=== PATIENT | female | born 1960 | race Caucasian/White ===

== ENCOUNTER → 2020-07-31 | Outpatient (CLI) | payer OTHER ==
[~2020-07-31] MED LIST: REGADENOSON 0.4 MG/5 ML SYRINGE IV ONE
--- NOTE | 2020-07-31 16:12 | NM ---
EXAMINATION TYPE: NM stress lexiscan cardiolite DATE OF EXAM: 07/31/2020 COMPARISON: NONE HISTORY: Arrhythmia TECHNIQUE: After the intravenous administration of 9.5 mCi Tc 99m Sestamibi - Cardiolite resting SPE CT images acquired 50 minutes post injection. The patient received 0.4mg Lexiscan, 25.2 mCi Tc 99m Sestamibi - Stress images obtained [address] injection FINDINGS: Review of stress and rest SPECT images demonstrates decreased activity on stress and rest of the ante rior wall, with normal wall motion, likely attenuation artifact. No distinct reversible perfusion abn ormality. Gated analysis shows normal wall motion with an estimated left ventricular ejection fracti on of 45 %. TID 1.15 IMPRESSION: 1. Attenuation artifact of the anterior wall. 2. No scintigraphic evidence for reversible ischemia. 3. Ejection fraction 45%.
--- NOTE | 2020-07-31 16:53 | ECHOF ---
Referral Reason:I49.9 arrythmia MEASUREMENTS -------- HEIGHT: 179.1 cm WEIGHT: 93.0 kg BP: 146/66 RVIDd: 3.0 cm (< 3.3) IVSd: 1.3 cm (0.6 - 1.1) LVIDd: 4.8 cm (3.9 - 5.3) LVPWd: 1.1 cm (0.6 - 1.1) IVSs: 1.6 cm LVIDs: 3.7 cm LVPWs: 1.8 cm LA Diam: 3.6 cm (2.7 - 3.8) LAESV Index (A-L): 23.25 ml/m Ao Diam: 2.8 cm (2.0 - 3.7) AV Cusp: 1.4 cm (1.5 - 2.6) MV EXCURSION: 9.414 mm (> 18.000) MV EF SLOPE: 73 mm/s (70 - 150) EPSS: 1.1 cm MV E Lico: 0.76 m/s MV DecT: 257 ms MV A Lico: 1.04 m/s MV E/A Ratio: 0.73 AV maxP.15 mmHg AV meanP.05 mmHg AR PHT: 701 ms RAP: 5.00 mmHg RVSP: 28.22 mmHg FINDINGS -------- Sinus rhythm. This was a technically adequate study. The left ventricular size is normal. There is mild concentric left ventricular hypertrophy. Overa ll left ventricular systolic function is mild-moderately impaired with, an EF between 40 - 45 %. The right ventricle is normal in size. Normal LA size by volume 22+/-6 ml/m2. The right atrium is normal in size. Interatrial and interventricular septum intact. There is moderate aortic valve sclerosis. There is [id number]-lvdued aortic regurgitation. There is mild aortic stenosis present. Peak/mean gradient across the Aortic Valve is 31.15mmHg / 18.05mm Hg. The mitral valve leaflets are mildly thickened. There is trace to mild mitral regurgitation. Mild tricuspid regurgitation present. Right ventricular systolic pressure is normal at < 35 mmHg. Trace/mild (physiologic) pulmonic regurgitation. The aortic root size is normal. IVC Not well visulized. There is no pericardial effusion. CONCLUSIONS -------- 1. The left ventricular size is normal. 2. There is mild concentric left ventricular hypertrophy. 3. Overall left ventricular systolic function is mild-moderately impaired with, an EF between 40 - 45 %. 4. There is moderate aortic valve sclerosis. 5. There is mild aortic stenosis present. 6. Peak/mean gradient across the Aortic Valve is 31.15mmHg / 18.05mmHg. 7. The mitral valve leaflets are mildly thickened. 8. There is trace to mild mitral regurgitation. 9. Mild tricuspid regurgitation present. 10. Trace/mild (physiologic) pulmonic regurgitation. 11. There is no pericardial effusion. MANAGER CREATIVE: Theodora Barcenas RDCS
--- NOTE | 2020-07-31 18:06 | P.STRESS ---
- Stress Test Note Stress Test Results/Findings: Exam Performed: NM stress lexiscan cardiolite Exam Date: 07/31/20 Reason for Exam: ARRHYTHMIA Height: 5 ft 11 in Weight: 205 kg Protocol: LEXISCAN Stage: NA Duration of Exercise: NA Resting Heart Rate: 71 Resting Blood Pressure: 133/82 Maximum Achieved Heart Rate: 96 Maximum Achieved Blood Pressure: 152/64 85% PMHR: NA 100% PMHR: NA METS: NA Technologist Comment: Stress Test Results/Findings: At baseline EKG shows normal sinus rhythm with left bundle branch block and nonspecific ST, T-wave abnormalities. At peak infusion there is no significant change of nonspecific ST and T wave abnormalities with continued left bundle- branch block. Conclusions: 1. Normal EKG response to Lexiscan infusion. 2. Left bundle branch block 3. Nuclear imaging reported separately.
== END | disposition home or self-care (01) ==
LOC: RADNMMAIN 08:37
PROVIDERS: ATTEND Internal Medicine Geriatric Medicine
DX: I08.1 Rheumatic disorders of both mitral and tricuspid valves (principal); I44.7 Left bundle-branch block, unspecified; I49.9 Cardiac arrhythmia, unspecified
CPT/HCPCS: 93017; 93306; 78452; A9500; J2785

== ENCOUNTER → 2020-08-24 | Outpatient (CLI) | payer OTHER ==
[2020-08-24 09:47] LABS: HCT 42.2 % (34.0-46.0); HGB 13.4 gm/dL (11.4-16.0); MCH 30.1 pg (25.0-35.0); MCHC 31.7 g/dL (31.0-37.0); MCV 94.8 fL (80.0-100.0); Mean Platelet Volume 7.5; Platelet Count 231 k/uL (150-450); RBC 4.45 m/uL (3.80-5.40); RDW 12.1 % (11.5-15.5); WBC 6.6 k/uL (3.8-10.6)
[2020-08-24 10:02] LABS: Potassium 5.4 mmol/L (3.5-5.1)
== END | disposition home or self-care (01) ==
LOC: LABPAT 08:54
PROVIDERS: ATTEND Internal Medicine Interventional Cardiology
DX: Z01.818 Encounter for other preprocedural examination (principal); R06.02 Shortness of breath
CPT/HCPCS: 36415; 80051; 82565; 84520; 85027

== ENCOUNTER → 2020-08-27 | Day surgery (SDC) | payer OTHER ==
[2020-08-23 15:28] VITALS: BMI 29.2
[~2020-08-27] MED LIST changes: +ALPRAZolam 0.25 MG TAB PO PRN; +ALPRAZolam 0.5 MG TAB PO PRN; +ASPIRIN 325 MG TAB PO STA; +ATORVASTATIN 80 MG TAB PO STA; +IOPAMIDOL-370 125ML BTL INJ ONE; +IOPAMIDOL-370 50ML BTL INJ ONE; +LIDOCAINE 1% INJ 10MG/ML (20 ML MDV) SQ ONE; +MIDAZOLAM 2 MG/2 ML VIAL IV ONE; +NITROGLYCERIN SL TABS 0.4 MG TAB SUBLINGUAL PRN; -REGADENOSON 0.4 MG/5 ML SYRINGE IV ONE; +RX INFO: IV CONTRAST WAS GIVEN 1 EACH MISC MISCELLANE PRN; +SODIUM CHLORIDE 0.9% 1,000 ML IV SCH; +SODIUM CHLORIDE 0.9% 1,000 ML in EMPTY BAG 1 BAG IV ONE
[2020-08-27 07:10] VITALS: RESP 16; TEMP 98
[2020-08-27] MEDS: BENZOCAINE SPRAY 1 CAN MUCOUS MEM ONE ×2 (07:38→07:50)
[2020-08-27] MEDS: MIDAZOLAM 2 MG/2 ML VIAL IV ONE ×2 (07:48→07:54)
[2020-08-27] MEDS: VERAPAMIL SYRINGE (5 MG/10 ML) INTRAARTER ONE ×2 (08:25→08:42)
[2020-08-27] MEDS: fentaNYL (PF) 50 MCG/ML 2 ML AMP IV ONE ×2 (08:30→08:41)
--- NOTE | 2020-08-27 09:20 | ECHOT ---
TRANSESOPHAGEAL ECHOCARDIOGRAM TRANSESOPHAGEAL ECHOCARDIOGRAM: DATE OF SERVICE: 08/27/2020 PERFORMING PHYSICIAN: Joshua Perez MD. PROCEDURE PERFORMED: Transesophageal echocardiogram. INDICATION: This is a 60-year-old female patient who was seen recently at Dr. Ortiz's office and was found to have a heart murmur. An echocardiogram was performed and showed evidence of aortic valve disease. Subsequently, the patient was referred for further cardiac evaluation. The echo showed also what seems to be cardiomyopathy with EF around 40% with left bundle branch block as well. She is scheduled today to undergo a MIKI and heart catheterization. COMPLICATION: None. LEVEL OF SEDATION: Moderate with sedation length of 15 minutes. PROCEDURE DESCRIPTION: After obtaining an informed consent, the patient was brought to the cardiac laboratory chemical assistant. The transesophageal echocardiogram was advanced through the bite guard to the mid esophageal where 2D echocardiogram images as well as color Doppler images of of various cardiac structures were obtained. Particular attention was made to the aortic valve. We did the MIKI using color Doppler, as well as continuous-wave Dopplers as well as 2D echocardiogram images. The procedure was completed without any complication. FINDINGS: The left ventricular dimension appeared to be within normal limits. The left ventricular systolic function is mildly impaired with EF around 45%. Right ventricle appeared to be of normal size and function. The left atrium appeared to be mildly dilated. The left atrial appendage appeared to be free from any thrombus. The interatrial septum appeared to be intact. The aortic valve is trileaflet valve without stenosis with evidence of severe aortic insufficiency and evidence of reversal flow in the descending aorta. The mitral valve appeared to be mildly thickened with evidence of moderate MR. There was mild tricuspid regurgitation seen and mild pulmonic insufficiency. CONCLUSION: 1. Mildly impaired left ventricular systolic function with ejection fraction around 45%. 2. Intact interatrial septum without any evidence of shunt. 3. Normal left atrial appendage without any thrombus. 4. Trileaflet aortic valve without stenosis with severe insufficiency and evidence of reversal flow in the descending aorta. 5. Thickened mitral valve leaflets with evidence of moderate MR. 6. Mild tricuspid regurgitation and mild pulmonic insufficiency. 7. Mildly dilated aortic root. 8. No evidence of pericardial effusion. MMODL / IJN: [id number] /
[2020-08-27 10:24] VITALS: PULSE 48
[2020-08-27 10:26] VITALS: BP 136/61
--- NOTE | 2020-08-27 14:22 | CC ---
CARDIAC CATHETERIZATION REPORT DATE OF SERVICE: 08/27/2020. PERFORMING PHYSICIAN: Joshua Perez MD. PROCEDURE PERFORMED: 1. Selective right and left coronary angiogram. 2. An aortic root angiogram. INDICATION: This is a 60-year-old female patient who was diagnosed recently with severe aortic insufficiency. COMPLICATION: None. LEVEL OF SEDATION: Moderate with sedation length of 24 minutes. PROCEDURE DESCRIPTION: After obtaining an informed consent, the patient was brought to the cardiac poultry farm laborer. The right radial artery was cannulated using micropuncture technique, the micropuncture wire passed easily, then I placed a 6-St Lucian sheath at the right radial artery; 10,000 units of heparin given and 2 mg of verapamil given as well. Selective right and left coronary angiogram performed using JR4 3.5 short tip and JL3.5 catheters. I did aortic root angiogram using 6-St Lucian pigtail catheter. The procedure was completed without any complication. SELECTIVE CORONARY ANGIOGRAM: 1. Left main is angiographically normal, it bifurcates into LCX and LAD. 2. The LCX is a large caliber vessel and it is a nondominant vessel. The left circumflex is angiographically normal. It gives rise in the midportion into a large OM which appeared to be angiographically normal. 3. The LAD, the LAD is angiographically normal as well. In the midportion, it gives rise into a large diagonal branch which has mild disease only. 4. The right coronary artery is a large caliber vessel, it is a dominant vessel. The RCA is calcified with only mild to moderate disease in the midportion appeared to be in the range of 40% to 50%. AORTIC ROOT ANGIOGRAM: The aortic root angiogram was performed in the MOHAWK projection and using a power injection. The aortic root appeared to be mildly dilated with evidence of 3 to 4+ aortic insufficiency. CONCLUSION: 1. Calcified right and left coronary systems. 2. Intermediate disease involving the mid right coronary artery. 3. A 3+ to 4+ aortic insufficiency with dilated aortic root. MMODL / IJN: [id number] /
--- NOTE | 2020-08-27 14:22 | LTR ---
DATE OF SERVICE: 08/27/2020 RE: Katelynn Huber Dear Dr. Ortiz; Ms. Katelynn Huber underwent today a MIKI and heart catheterization. The MIKI revealed severe aortic insufficiency. The heart catheterization revealed intermediate nonobstructive coronary artery disease with evidence of severe aortic insufficiency as well. I advised at this point maximize medical treatment and follow up with the patient in the office as an outpatient and arrange the patient to be seen by cardiothoracic surgeon for aortic valve replacement. Thank you again for allowing us to participate in her care and please do not hesitate to call for any questions or concerns. Sincerely, MD HARIKA Aguilar / MICHELLEN: [id number] /
== END ==
LOC: CATHCVL 06:20
PROVIDERS: ATTEND Internal Medicine Interventional Cardiology
DX: I08.8 Other rheumatic multiple valve diseases (principal); I77.810 Thoracic aortic ectasia; I25.10 Atherosclerotic heart disease of native coronary artery without angina pectoris; I42.9 Cardiomyopathy, unspecified; F17.210 Nicotine dependence, cigarettes, uncomplicated; R09.89 Other specified symptoms and signs involving the circulatory and respiratory systems; M17.11 Unilateral primary osteoarthritis, right knee; I44.7 Left bundle-branch block, unspecified; Z79.899 Other long term (current) drug therapy; Z88.5 Allergy status to narcotic agent; Z88.0 Allergy status to penicillin; Z82.49 Family history of ischemic heart disease and other diseases of the circulatory system
CPT/HCPCS: 93312; 93320; 93325; 93454; 93567; C1887; C1769; C1894; J2250; J2001; J3010; J1644; Q9967 ×2

== ENCOUNTER → 2020-09-28 | Outpatient (CLI) | payer OTHER ==
[2020-09-28 09:56] LABS: HCT 42.5 % (34.0-46.0); HGB 13.6 gm/dL (11.4-16.0); MCH 30.9 pg (25.0-35.0); MCV 96.8 fL (80.0-100.0); Mean Platelet Volume 7.7; Platelet Count 202 k/uL (150-450); RBC 4.39 m/uL (3.80-5.40); RDW 11.9 % (11.5-15.5); WBC 7.2 k/uL (3.8-10.6)
[2020-09-28 10:09] LABS: Calcium 9.3 mg/dL (8.4-10.2); INR 0.9 (<1.2); Magnesium 2.1 mg/dL (1.6-2.3); Partial Thromboplastin Time 22.8 sec (22.0-30.0); Potassium 4.8 mmol/L (3.5-5.1); Prothrombin Time 9.6 sec (9.0-12.0); Total Bilirubin 0.5 mg/dL (0.2-1.3); Total Protein 6.4 g/dL (6.3-8.2)
[2020-09-28 10:39] LABS: Appearance,Urine Cloudy (Clear); Bilirubin,Urine Negative (Negative); Blood,Urine Small (Negative); Color,Urine Yellow; Glucose,Urine (UA) Negative (Negative); Hyaline Casts,Urine 1 /lpf (0-2); Ketones,Urine Negative (Negative); Leukocyte Esterase,Urine Moderate (Negative); Mucus,Urine Few /hpf; Nitrite,Urine Negative (Negative); PH, Urine 5.5 (5.0-8.0); Protein,Urine Negative (Negative); RBC,Urine 4 /hpf (0-5); Specific Gravity,Urine 1.029 (1.001-1.035); Squamous Epithelial Cell,Urine 12 /hpf (0-4); Urobilinogen,Urine <2.0 mg/dL (<2.0); WBC,Urine 9 /hpf (0-5)
--- NOTE | 2020-09-28 13:18 | XR ---
EXAMINATION TYPE: XR chest 2V DATE OF EXAM: 09/28/2020 COMPARISON: NONE HISTORY: Preop open heart surgery TECHNIQUE: Frontal and lateral views of the chest are obtained. FINDINGS: There is no focal air space opacity, pleural effusion, or pneumothorax seen. The cardiac silhouette size is within normal limits. The osseous structures are intact. IMPRESSION: No acute cardiopulmonary process.
--- NOTE | 2020-09-28 15:27 | P.PN ---
Progress Note - Text Progress Note Date: 09/28/20 5 meter walk test completed: #1 2.89 sec #2 2.98 sec #3 2.80 sec Patient tolerated without difficulty. STS risk score calculated and discussed with patient
[2020-09-28 16:18] LABS: Hemoglobin A1C 5.6 % (4.0-6.0)
[2020-09-28 16:46] LABS: Hepatitis A Antibody IgM Non-Reactive (Non-Reactive); Hepatitis B Core IgM Non-Reactive (Non-Reactive); Hepatitis B Surface Antigen Non-Reactive (Non-Reactive); Hepatitis C IgG Antibody Non-Reactive (Non-Reactive)
--- NOTE | 2020-10-03 13:15 | P.ARTDOP ---
Arterial Doppler LOWER EXTREMITY ARTERIAL DOPPLER: DATE OF SERVICE: 09/28/2020 Reason for study: Preop CABG. Doppler waveforms: Multiphasic bilaterally throughout. Pulse volume recording: []. Pressure gradients: None. Ankle-brachial indices: Greater than 1 bilaterally. Toe brachial indices: 1.01 on the right, 0.87 on the left Impression: Normal study.
--- NOTE | 2020-10-03 13:17 | P.VSCSTY ---
Greater Saphenous Vein Mapping This is bilateral lower extremity greater saphenous vein mapping. Date of service: 09/28/2020 Vein quality and ultrasound appearance: We see no intraluminal thrombus or wall changes. Vein size groin right : 7.4 x 4.9 groin left: 4.1 x 3.7 High thigh right: 5.9 x 5.2 high thigh left: 3.2 x 3.0 Mid thigh right: 4.5 x 2.6 mid thigh left: 3.6 x 2.8 Above-knee right: 5.8 x 3.3 above- knee left: 4.5 x 3.2 Below knee right: 3.8 x 3.9 below-knee left: 3.1 x 3.0 Mid calf right: 2.8 x 2.7 mid calf left: 2.6 x 1.3 Ankle right: 2.4 x 2.6 ankle left: 2.3 x 2.1 Impression: Usable bilateral greater saphenous vein. Vein in the left lower leg may be a bit small. Clinical correlation recommended..
== END | disposition home or self-care (01) ==
LOC: LABPAT 07:49
PROVIDERS: ATTEND Thoracic Surgery (Cardiothoracic Vascular Surgery)
DX: Z01.818 Encounter for other preprocedural examination (principal); Z01.810 Encounter for preprocedural cardiovascular examination; Z20.828 Contact with and (suspected) exposure to other viral communicable diseases; I35.1 Nonrheumatic aortic (valve) insufficiency; I34.0 Nonrheumatic mitral (valve) insufficiency
CPT/HCPCS: 86900; 86901; 80061; 80053; 80074; 84443; 83735; 85027; 85610; 85730; 86850; 86920; 81001; 87070; 87086; 83036; 71046; 93970; 93922; 93005; 36415; U0003; C9803

== ENCOUNTER 2020-10-05 05:33 | Inpatient (IN) | payer OTHER ==
[~2020-10-05 05:33] MED LIST changes: +ALBUMIN HUMAN 25% 50 ML IV ONE; +ALBUMIN HUMAN 5% 500 ML IVPB ONE; -ALPRAZolam 0.25 MG TAB PO PRN; -ALPRAZolam 0.5 MG TAB PO PRN; +ASPIRIN 325 MG TAB PO ONE; -ASPIRIN 325 MG TAB PO STA; +ATORVASTATIN 10 MG TAB PO ONE; -ATORVASTATIN 80 MG TAB PO STA; +CALCIUM CHLORIDE 100 MG/ML 10 ML SYRINGE IV ONE; +CHLORHEXIDINE GLUCONATE 15 ML CUP MUCOUS MEM ONE; +CLEVIDIPINE BUTYRATE 25 MG in EMPTY BAG 1 BAG IV ONE; +DEXTROSE 5% IN WATER 1,000 ML with POTASSIUM CHLORIDE 110 MEQ, MAGNESIUM SULFATE 16 MEQ... IV ONE; +DEXTROSE 5% IN WATER 1,000 ML with POTASSIUM CHLORIDE 25 MEQ, SODIUM CHLORIDE 2.5MEQ/ML... IRRIGATION ONE; +HEPARIN SODIUM 1,000 UN/ML (10ML VL) IV ONE; +HEPARIN SODIUM,PORCINE 5,000 UNIT in SODIUM CHLORIDE 0.9% 500 ML 500 ML IV ONE; +INSULIN REGULAR 100 UNIT in SODIUM CHLORIDE 0.9% 100 ML IV ONE; -IOPAMIDOL-370 125ML BTL INJ ONE; -IOPAMIDOL-370 50ML BTL INJ ONE; +LACTATED RINGERS 1,000 ML IV ONE; -LIDOCAINE 1% INJ 10MG/ML (20 ML MDV) SQ ONE; +MAGNESIUM SULFATE MG 500 MG/ML IV ONE; +MANNITOL 25% 12.5 GM/50 ML VIAL IV ONE; +METOPROLOL TARTRATE 12.5 MG TAB PO ONE; -MIDAZOLAM 2 MG/2 ML VIAL IV ONE; -NITROGLYCERIN SL TABS 0.4 MG TAB SUBLINGUAL PRN; +NITROGLYCERIN-D5W PMX 25 MG/250 ML BTL IV ONE; +NITROGLYCERIN-D5W PMX 50 MG in DEXTROSE/WATER 1 250ML.BAG IV ONE; +NOREPINEPHRINE 4 MG in SODIUM CHLORIDE 0.9% 250 ML IV ONE; +PAPAVERINE 360 MG in SODIUM CHLORIDE 0.9% 90 ML IV ONE; +PHENYLEPHRINE 10 MG/ML VIAL IV ONE; +PHENYLEPHRINE 40 MG in SODIUM CHLORIDE 0.9% 250 ML IV ONE; +PROTAMINE SULFATE 10 MG/ML 25 ML VIAL IV ONE; +PROTAMINE SULFATE 250 MG in EMPTY BAG 1 BAG IV ONE; -RX INFO: IV CONTRAST WAS GIVEN 1 EACH MISC MISCELLANE PRN; +SODIUM BICARB 8.4% 50 ML SYR (1 MEQ/ML) IV ONE; +SODIUM CHLORIDE 0.9% 1,000 ML IV ONE; -SODIUM CHLORIDE 0.9% 1,000 ML IV SCH; -SODIUM CHLORIDE 0.9% 1,000 ML in EMPTY BAG 1 BAG IV ONE; +TRANEXAMIC ACID 2,000 MG in SODIUM CHLORIDE 0.9% 80 ML IV ONE; +VANCOMYCIN 1,500 MG in SODIUM CHLORIDE 0.9% 250 ML IVPB ONE; +propofoL 1,000 MG/100 ML VIAL IV ONE
[2020-10-05] MEDS ORDERED: LIDOCAINE 1% (10MG/ML) FOR IV START INTRADERMA ONE (06:09)
[2020-10-05] MEDS ORDERED: PROTAMINE SULFATE 10 MG/ML 25 ML VIAL IV ONE (07:38)
[2020-10-05] MEDS ORDERED: MAGNESIUM SULFATE 4 MEQ/ML 10ML VIAL ONE (07:38)
[2020-10-05] MEDS ORDERED: VECURONIUM 10 MG VIAL IV ONE (07:38)
[2020-10-05] MEDS ORDERED: SODIUM CHLORIDE 0.9% IRRIG 1,000 ML BTL IRRIGATION ONE (07:38)
[2020-10-05] MEDS ORDERED: TRANEXAMIC ACID 1,000 MG/10 ML VIAL ONE (07:38)
[2020-10-05] MEDS ORDERED: MIDAZOLAM 2 MG/2 ML VIAL ONE (07:38)
[2020-10-05] MEDS ORDERED: fentaNYL (PF) 50 MCG/ML 50 ML VIAL ONE (07:38)
[2020-10-05] MEDS ORDERED: LIDOCAINE 2% SYG (PF) 100 MG/5 ML ONE (07:38)
[2020-10-05] MEDS ORDERED: ELECTROLYTE-R (PH 7.4) 1,000 ML IV.SOLN IV ONE (07:38)
[2020-10-05] MEDS ORDERED: HEPARIN SODIUM,PORCINE 10,000 UNIT/ML 1 ML VIAL ONE (07:38)
[2020-10-05] MEDS ORDERED: SODIUM CHLORIDE 0.9% 250 ML BAG ONE (07:38)
[2020-10-05 08:44] LABS: ABG Base Excess 0.1 mmol/L; ABG Glucose Whole Blood 95 mg/dL (75-99); ABG HCO3 24 mmol/L (21-25); ABG Hematocrit 36 % (34.0-46.0); ABG Ionized Calcium 4.8 mg/dL (4.5-5.3); ABG Lactic Acid Whole Blood 1.2 mmol/L (0.5-1.6); ABG Oxygen Saturation 99.9 % (94-97); ABG PCO2 37 mmHg (35-45); ABG PH 7.42 (7.35-7.45); ABG PO2 408 mmHg (83-108); ABG Sodium Whole Blood 140 mmol/L (135-146); ABG TCO2 26 mmol/L (19-24)
[2020-10-05 09:53] LABS: ABG Base Excess 1.1 mmol/L; ABG Glucose Whole Blood 100 mg/dL (75-99); ABG HCO3 27 mmol/L (21-25); ABG Hematocrit 34 % (34.0-46.0); ABG Ionized Calcium 4.7 mg/dL (4.5-5.3); ABG Lactic Acid Whole Blood 1.3 mmol/L (0.5-1.6); ABG Oxygen Saturation 99.6 % (94-97); ABG PCO2 44 mmHg (35-45); ABG PH 7.38 (7.35-7.45); ABG PO2 239 mmHg (83-108); ABG Potassium Whole Blood 4.1 mmol/L (3.4-4.5); ABG Sodium Whole Blood 140 mmol/L (135-146); ABG TCO2 28 mmol/L (19-24)
[2020-10-05 10:14] LABS: ABG Glucose Whole Blood 200 mg/dL (75-99); ABG HCO3 24 mmol/L (21-25); ABG Hematocrit 25 % (34.0-46.0); ABG Ionized Calcium 4.1 mg/dL (4.5-5.3); ABG Lactic Acid Whole Blood 0.9 mmol/L (0.5-1.6); ABG PCO2 35 mmHg (35-45); ABG PH 7.45 (7.35-7.45); ABG Potassium Whole Blood 4.9 mmol/L (3.4-4.5); ABG Sodium Whole Blood 133 mmol/L (135-146); ABG TCO2 25 mmol/L (19-24)
[2020-10-05 10:46] LABS: ABG Base Excess 0.4 mmol/L; ABG Glucose Whole Blood 172 mg/dL (75-99); ABG HCO3 25 mmol/L (21-25); ABG Hematocrit 25 % (34.0-46.0); ABG Ionized Calcium 4.3 mg/dL (4.5-5.3); ABG Lactic Acid Whole Blood 0.8 mmol/L (0.5-1.6); ABG PCO2 38 mmHg (35-45); ABG PH 7.42 (7.35-7.45); ABG PO2 411 mmHg (83-108); ABG Potassium Whole Blood 4.8 mmol/L (3.4-4.5); ABG Sodium Whole Blood 135 mmol/L (135-146); ABG TCO2 26 mmol/L (19-24)
[2020-10-05 11:50] LABS: ABG Base Excess 0.8 mmol/L; ABG Glucose Whole Blood 129 mg/dL (75-99); ABG HCO3 26 mmol/L (21-25); ABG Hematocrit 31 % (34.0-46.0); ABG Oxygen Saturation 99.4 % (94-97); ABG PCO2 42 mmHg (35-45); ABG PO2 183 mmHg (83-108); ABG Potassium Whole Blood 4.2 mmol/L (3.4-4.5); ABG Sodium Whole Blood 137 mmol/L (135-146); ABG TCO2 27 mmol/L (19-24)
[2020-10-05] MEDS ORDERED: Potassium Replacement Protocol 1 EACH MISC MISCELLANE PRN (12:09)
[2020-10-05] MEDS ORDERED: METOCLOPRAMIDE 5 MG/ML 2 ML VIAL IVP PRN (12:09)
[2020-10-05] MEDS ORDERED: ONDANSETRON 4 MG/2 ML VIAL IVP PRN (12:09)
[2020-10-05] MEDS ORDERED: AMIODARONE 360 MG in DEXTROSE 5% IN WATER 200 ML IV PRN ×2 (12:09)
[2020-10-05] MEDS ORDERED: AMIODARONE 300 MG in DEXTROSE 5% IN WATER 250 ML IV PRN ×2 (12:09)
[2020-10-05] MEDS ORDERED: ALBUMIN HUMAN 5% 250 ML in EMPTY BAG 1 BAG IVPB PRN (12:09)
[2020-10-05] MEDS ORDERED: DEXTROSE 5% IN WATER 100 ML with AMIODARONE 150 MG IV PRN (12:09)
[2020-10-05] MEDS ORDERED: VANCOMYCIN IV PER PHARMACY 1 EACH MISC MISCELLANE PRN (12:09)
[2020-10-05] MEDS ORDERED: CALCIUM GLUCONATE 2 GM in SODIUM CHLORIDE 0.9% 100 ML IVPB PRN (12:09)
[2020-10-05] MEDS ORDERED: Magnesium Replacement Protocol 1 EACH MISC MISCELLANE PRN (12:09)
[2020-10-05] MEDS ORDERED: Phosphorus Replacement Protoco 1 EACH MISC MISCELLANE PRN (12:09)
[2020-10-05] MEDS ORDERED: IPRATROPIUM-ALBUTEROL 3 ML NEB INHALATION PRN (12:09)
[2020-10-05] MEDS ORDERED: BENZOCAINE/MENTHOL LOZENG 1 EACH LOZENGE MUCOUS MEM PRN (12:09)
[2020-10-05 12:20] LABS: ABG PO2 >420 mmHg (83-108)
[2020-10-05 12:27] LABS: Glucose,Whole Blood 119 mg/dL (75-99)
[2020-10-05 12:46] LABS: ABG Base Excess 0.5 mmol/L; ABG HCO3 26 mmol/L (21-25); ABG PCO2 43 mmHg (35-45); ABG PH 7.38 (7.35-7.45); ABG PO2 >400 mmHg (83-108); ABG TCO2 27 mmol/L (19-24)
[2020-10-05 12:46] LABS: Glucose,Whole Blood 111 mg/dL (75-99)
[2020-10-05 12:47] LABS: Ionized Calcium 5.1 mg/dL (4.5-5.3)
[2020-10-05 12:48] LABS: Allen Test Performed? no
[2020-10-05 12:54] LABS: Basophils % (A) 0 %; Eosinophils # (A) 0.1 k/uL (0-0.7); Eosinophils % (A) 2 %; HCT 29.8 % (34.0-46.0); Lymphocytes # (A) 1.6 k/uL (1.0-4.8); Lymphocytes % (A) 18 %; MCH 30.8 pg (25.0-35.0); MCHC 32.5 g/dL (31.0-37.0); MCV 94.9 fL (80.0-100.0); Mean Platelet Volume 8.1; Monocytes # (A) 0.4 k/uL (0-1.0); Monocytes % (A) 4 %; Neutrophils # (A) 6.7 k/uL (1.3-7.7); Neutrophils % (A) 75 %; Platelet Count 101 k/uL (150-450); RBC 3.14 m/uL (3.80-5.40); RDW 12.2 % (11.5-15.5); WBC 8.9 k/uL (3.8-10.6)
[2020-10-05 12:55] LABS: HGB 9.7 gm/dL (11.4-16.0)
[2020-10-05 12:56] LABS: INR 1.2 (<1.2); Partial Thromboplastin Time 30.3 sec (22.0-30.0); Prothrombin Time 12.3 sec (9.0-12.0)
[2020-10-05 12:59] LABS: ALT 10 U/L (4-34); AST 28 U/L (14-36); African American GFR (CKD) >90 (>60 ml/min/1.73 sqM); Albumin 2.7 g/dL (3.5-5.0); Alkaline Phosphatase 34 U/L (38-126); Anion Gap 2 mmol/L; Blood Urea Nitrogen 13 mg/dL (7-17); Calcium 8.1 mg/dL (8.4-10.2); Carbon Dioxide 25 mmol/L (22-30); Chloride 108 mmol/L (98-107); Glucose 110 mg/dL (74-99); Magnesium 2.6 mg/dL (1.6-2.3); Non-African American GFR(CKD) >90 (>60 ml/min/1.73 sqM); Potassium 4.1 mmol/L (3.5-5.1); Sodium 135 mmol/L (137-145); Total Protein 4.3 g/dL (6.3-8.2)
[2020-10-05] MEDS ORDERED: INSULIN REGULAR 100 UNIT in SODIUM CHLORIDE 0.9% 100 ML IV SCH (13:00)
[2020-10-05] MEDS ORDERED: DEXMEDETOMIDINE/0.9% NACL(PMX) 400 MCG in EMPTY BAG 1 BAG IV SCH (13:00)
[2020-10-05] MEDS: LACTATED RINGERS 1,000 ML IV SCH (13:01)
[2020-10-05] MEDS: CLEVIDIPINE BUTYRATE 25 MG in EMPTY BAG 1 BAG IV SCH ×6 (13:02→23:15)
--- NOTE | 2020-10-05 13:24 | XR ---
EXAMINATION TYPE: XR chest 1V portable DATE OF EXAM: 10/05/2020 COMPARISON: Prior chest x-ray 09/28/2020 HISTORY: Postop cardiac surgery TECHNIQUE: Single frontal view of the chest is obtained. FINDINGS: Patient is post median sternotomy and left atrial appendage clipping placement, aortic delia ve replacement. Endotracheal tube, NG tube, median sternal drain, right chest tube, right jugular britta tral venous sheath and coaxial Goree-Verónica catheter overlying appropriate positions. There is no eviden t pneumothorax or pleural effusion. Heart size is within normal limits. Subsegmental basilar atelecta tic changes are suspected. IMPRESSION: Satisfactory postoperative chest x-ray
[2020-10-05] MEDS: ACETAMINOPHEN IV (For NPO) 1,000 MG in EMPTY BAG 1 BAG IVPB SCH ×2 (13:33→20:00)
[2020-10-05] MEDS ORDERED: MORPHINE SULFATE 2 MG/ML SYRINGE ONE (13:47)
--- NOTE | 2020-10-05 14:01 | CONS ---
DEMETRI Pace is a 60-year-old lady with history of dyslipidemia and severe aortic regurgitation who underwent recent cardiac evaluation including cardiac catheterization and transesophageal echo, was found to have cardiomyopathy with an ejection fraction of 40% and severe aortic regurgitation involving a trileaflet aortic valve. She underwent aortic valve replacement and she is just came in from the operating room intubated on vent, sedated. Remains in sinus rhythm and stable hemodynamically. PAST MEDICAL HISTORY: Significant for aortic regurgitation and dyslipidemia and cardiomyopathy. MEDICATIONS: Medications at home included Wellbutrin, Toprol, magnesium, Lipitor and aspirin. ALLERGIES: TO PENICILLIN AND MORPHINE. Family history, social history: Unable to obtain. REVIEW OF SYSTEMS: I am unable to obtain from the patient. EXAM: Heart rate is 70 beats per minute. Blood pressure is 140/70, respiratory 16, O2 saturation is 98% on room air. There is no jugular venous distention. Chest exam reveals good air entry bilaterally. Heart exam reveals first and second heart sounds. No gallop. I do not hear any murmur. Abdomen: Soft. Exam of extremities did not reveal any edema. Peripheral pulses are felt. Chest exam reveals good air entry bilaterally. LABS: Show that blood gases show a pH of 7.4, PCO2 42, PO2 of 180. CBC showed a hemoglobin of 13.6 prior to surgery. ASSESSMENT: Severe aortic regurgitation status post aortic valve replacement. PLAN: Continue supportive care. Wean and extubate as tolerated. MMODL / IJN: [id number] /
[2020-10-05 14:18] LABS: Glucose,Whole Blood 122 mg/dL (75-99)
[2020-10-05] MEDS: IPRATROPIUM-ALBUTEROL 3 ML NEB INHALATION SCH ×5 (15:05→21:37)
[2020-10-05 15:10] LABS: Basophils # (A) 0.1 k/uL (0-0.2); Basophils % (A) 0 %; Eosinophils # (A) 0.1 k/uL (0-0.7); Eosinophils % (A) 1 %; HCT 36.3 % (34.0-46.0); HGB 11.6 gm/dL (11.4-16.0); Lymphocytes # (A) 2.4 k/uL (1.0-4.8); Lymphocytes % (A) 15 %; MCH 31.1 pg (25.0-35.0); MCHC 32.1 g/dL (31.0-37.0); MCV 96.8 fL (80.0-100.0); Mean Platelet Volume 7.6; Monocytes # (A) 0.8 k/uL (0-1.0); Monocytes % (A) 5 %; Neutrophils # (A) 12.4 k/uL (1.3-7.7); Neutrophils % (A) 78 %; Platelet Count 130 k/uL (150-450); RBC 3.75 m/uL (3.80-5.40); RDW 12.3 % (11.5-15.5); WBC 15.9 k/uL (3.8-10.6)
[2020-10-05 15:13] LABS: Glucose,Whole Blood 134 mg/dL (75-99)
--- NOTE | 2020-10-05 15:48 | P.CNPUL ---
History of Present Illness Consult date: 10/05/20 Requesting physician: Dominik Painting Reason for consult: other (Status post aortic valve replacement.) Chief complaint: History of severe aortic valve disease with severe aortic regurgitation History of present illness: This is a 60-year-old female with known history of severe aortic regurgitation, recently diagnosed by transesophageal echocardiogram and cardiac catheterization. Patient underwent today an elective aortic valve replacement, and she was admitted to the ICU on mechanical ventilation. I was asked to see her on consultation. Presently the patient is on assist control mode of mechanical ventilation rate of 12 tidal volume is 400 FiO2 is 50% and PEEP of 5. ABG showed a pO2 of more than 400 pCO2 of 43 pH of 7.38. Hence the patient was changed to FiO2 of 50%. Patient is now on propofol drip at 50 mcg/kg/m, she is also on clevidipine at 6 mg/h, IV fluid at 50 mL per hour. Patient is sedated, and hemodynamically stable, in no distress. Postoperative chest x-ray showed satisfactory postoperative findings, basically unremarkable Review of Systems ROS unobtainable: due to endotracheal tube Past Medical History Past Medical History: Deep Vein Thrombosis (DVT), Hypertension, Osteoarthritis (OA) Additional Past Medical History / Comment(s): DVT right leg 2017 after surgery, recent hx. heart murmur History of Any Multi-Drug Resistant Organisms: None Reported Past Surgical History: Bowel Resection, Section, Heart Catheterization, Hernia Repair, Hysterectomy, Orthopedic Surgery Additional Past Surgical History / Comment(s): arthroscopy knee, ovarian cyst surg., recent heart cath & MIKI Past Anesthesia/Blood Transfusion Reactions: No Reported Reaction Additional Past Anesthesia/Blood Transfusion Reaction / Comment(s): uncontr ollable shakes when coming out Smoking Status: Former smoker - Past Family History Father Family Medical History: Blood Disorder, Deep Vein Thrombosis (DVT) Additional Family Medical History / Comment(s): not sure what name of clotting disorder is Medications and Allergies Home Medications Medication Instructions Recorded Confirmed Type Acetaminophen/Diphenhydramine 1 tab PO HS 08/23/20 10/05/20 History [Tylenol PM 500-25mg] Fexofenadine HCl [Marissa Allergy] 180 mg PO DAILY 08/23/20 10/05/20 History Magnesium 200 mg PO DAILY 08/23/20 10/05/20 History Metoprolol Succinate (ER) [Toprol 25 mg PO DAILY 08/23/20 10/05/20 History XL] buPROPion HCL [Wellbutrin SR] 100 mg PO DAILY 08/23/20 10/05/20 History Mupirocin 2% Oint [Bactroban 2% 1 applic NASAL BID #1 tube 09/28/20 10/05/20 Rx Oint] Aspirin 81 mg PO DAILY 10/01/20 10/05/20 History Atorvastatin [Lipitor] 40 mg PO DAILY 10/01/20 10/05/20 History Allergies Allergy/AdvReac Type Severity Reaction Status Date / Time Penicillins Allergy Anaphylaxis Unverified 10/05/20 06:01 morphine AdvReac Itching Unverified 10/05/20 06:01 Physical Exam Vitals: Vital Signs Temp Pulse Pulse Resp BP BP BP 10/05/20 15:36 78 10/05/20 15:22 69 10/05/20 15:00 68 12 10/05/20 14:45 64 12 10/05/20 14:30 64 12 10/05/20 14:15 67 13 10/05/20 14:00 62 13 10/05/20 13:45 73 25 H 10/05/20 13:30 66 12 10/05/20 13:20 14 10/05/20 13:15 65 12 10/05/20 13:00 64 12 126/65 10/05/20 12:45 65 12 10/05/20 12:30 66 16 10/05/20 12:17 65 16 10/05/20 06:00 97.7 F 73 16 142/70 145/77 Pulse Ox 10/05/20 15:36 10/05/20 15:22 10/05/20 15:00 100 10/05/20 14:45 100 10/05/20 14:30 100 10/05/20 14:15 100 10/05/20 14:00 100 10/05/20 13:45 100 10/05/20 13:30 100 10/05/20 13:20 10/05/20 13:15 100 10/05/20 13:00 100 10/05/20 12:45 100 10/05/20 12:30 100 10/05/20 12:17 100 10/05/20 06:00 98 Intake and Output 10/05/20 10/05/2010/05/20 06:59 14:59 22:59 Intake Total 100 535.120 89.667 Output Total 2408 240 Balance 100 -1872.880 -150.333 Intake: IV 100 498 79 CO/CI 70 20 Lactated Ringers 1,000 ml 150 50 @ 50 mls/hr IV .Q20H RICHI Rx#:[id number] Pressure Bags 27 9 Intake, IV Titration 37.120 10.667 Amount Clevidipine Butyrate 25 13.001 10.667 mg In Empty Bag 1 bag @ 1 MG/HR 2 mls/hr IV .Q24H RICHI Rx#:[id number] Dexmedetomidine/0.9% NaCl 3.787 (Pmx) 400 mcg In Empty Bag 1 bag @ Titrate IV . Q0M RICHI Rx#:[id number] propofoL 1,000 mg In 20.332 Empty Bag 1 bag @ Titrate IV .Q0M RICHI Rx#: [id number] Output: Chest Tube Drainage 278 40 Mediastinal 278 40 Urine 630 200 Estimated Blood Loss 1500 Other: Voiding Method Indwelling Catheter Weight 93.7 kg ABP, PAP, CO, CI - Last 8 Hours Arterial Blood Pressure 126/48 Arterial Blood Pressure 130/44 Arterial Blood Pressure 141/44 Arterial Blood Pressure 126/54 Arterial Blood Pressure 146/54 Arterial Blood Pressure 137/53 Arterial Blood Pressure 121/52 Arterial Blood Pressure 119/50 Arterial Blood Pressure 120/50 Arterial Blood Pressure 127/54 Arterial Blood Pressure 136/52 Arterial Blood Pressure 118/42 Pulmonary Artery Pressure 35/15 Pulmonary Artery Pressure 31/15 Pulmonary Artery Pressure 31/16 Pulmonary Artery Pressure 35/18 Pulmonary Artery Pressure 32/16 Pulmonary Artery Pressure 32/15 Pulmonary Artery Pressure 34/16 Pulmonary Artery Pressure 30/14 Pulmonary Artery Pressure 31/12 Pulmonary Artery Pressure 28/14 Pulmonary Artery Pressure 39/14 Pulmonary Artery Pressure 27/8 Cardiac Output 6.2 Cardiac Output 5.5 Cardiac Output 5.3 Cardiac Output 4.8 Cardiac Index 2.9 Cardiac Index 2.6 Cardiac Index 2.6 Cardiac Index 2.5 Cardiac Index 2.3 Physical Exam: Revealed a 60-year-old female on mechanical ventilation, sedated, in no distress. Head: Atraumatic, normocephalic, orogastric tube and endotracheal tube are intact. HEENT:[Neck is supple.] [No neck masses.] [No thyromegaly.] [No JVD.] Chest: [Clear throughout, no crackles, no rhonchi, no wheezes.] Cardiac Exam: [Normal S1 and S2, no S3 gallop, positive pericardial rub. Abdomen: [Soft, nontender, no megaly, no rebound, no guarding, normal bowel sounds.] Extremities: [No clubbing, no edema, no cyanosis.] Neurological Exam: Not be assessed. Psychiatric: Could not be assessed. Skin: No rashes. Results - Laboratory Findings CBC and BMP: 10/05/20 15:00 10/05/20 12:23 ABG ABG pH 7.38 (7.35-7.45) 10/05/20 12:45 ABG pCO2 43 mmHg (35-45) 10/05/20 12:45 ABG pO2 >400 mmHg (83-108) H 10/05/20 12:45 ABG O2 Saturation 100.0 % (94-97) H 10/05/20 12:45 PT/INR, D-dimer PT 12.3 sec (9.0-12.0) H 10/05/20 12:23 INR 1.2 (<1.2) H 10/05/20 12:23 Abnormal lab findings: Abnormal Labs 09/28/20 10/05/20 10/05/20 08:47 08:44 09:52 WBC RBC Hgb Hct Plt Count Neutrophils # PT INR APTT ABG pO2 408 H 239 H ABG HCO3 27 H ABG Total CO2 26 H 28 H ABG O2 Saturation 99.9 H 99.6 H ABG Hematocrit ABG Sodium ABG Potassium ABG Ionized Calcium ABG Glucose 100 H Hemoglobin 11.1 L Sodium Chloride Glucose POC Glucose (mg/dL) Calcium Magnesium Alkaline Phosphatase Total Protein Albumin Arterial Blood Potassium Arterial Blood Glucose 100 H Crossmatch See Detail 10/05/20 10/05/20 10/05/20 10:14 10:46 11:49 WBC RBC Hgb Hct Plt Count Neutrophils # PT INR APTT ABG pO2 >420 H 411 H 183 H ABG HCO3 26 H ABG Total CO2 25 H 26 H 27 H ABG O2 Saturation 100.0 H 100.0 H 99.4 H ABG Hematocrit 25 L 25 L 31 L ABG Sodium 133 L ABG Potassium 4.9 H 4.8 H ABG Ionized Calcium 4.1 L 4.3 L ABG Glucose 200 H 172 H 129 H Hemoglobin 8.1 L 8.1 L 10.2 L Sodium Chloride Glucose POC Glucose (mg/dL) Calcium Magnesium Alkaline Phosphatase Total Protein Albumin Arterial Blood Potassium 4.9 H 4.8 H Arterial Blood Glucose 200 H 172 H 129 H Crossmatch 10/05/20 10/05/20 10/05/20 12:23 12:23 12:23 WBC RBC 3.14 L Hgb 9.7 L D Hct 29.8 L Plt Count 101 L Neutrophils # PT 12.3 H INR 1.2 H APTT 30.3 H ABG pO2 ABG HCO3 ABG Total CO2 ABG O2 Saturation ABG Hematocrit ABG Sodium ABG Potassium ABG Ionized Calcium ABG Glucose Hemoglobin Sodium Chloride Glucose POC Glucose (mg/dL) 119 H Calcium Magnesium Alkaline Phosphatase Total Protein Albumin Arterial Blood Potassium Arterial Blood Glucose Crossmatch 10/05/20 10/05/20 10/05/20 12:23 12:44 12:45 WBC RBC Hgb Hct Plt Count Neutrophils # PT INR APTT ABG pO2 >400 H ABG HCO3 26 H ABG Total CO2 27 H ABG O2 Saturation 100.0 H ABG Hematocrit ABG Sodium ABG Potassium ABG Ionized Calcium ABG Glucose Hemoglobin Sodium 135 L Chloride 108 H Glucose 110 H POC Glucose (mg/dL) 111 H Calcium 8.1 L Magnesium 2.6 H Alkaline Phosphatase 34 L Total Protein 4.3 L Albumin 2.7 L Arterial Blood Potassium Arterial Blood Glucose Crossmatch 10/05/20 10/05/20 10/05/20 13:58 14:54 15:00 WBC 15.9 H RBC 3.75 L Hgb Hct Plt Count 130 L Neutrophils # 12.4 H PT INR APTT ABG pO2 ABG HCO3 ABG Total CO2 ABG O2 Saturation ABG Hematocrit ABG Sodium ABG Potassium ABG Ionized Calcium ABG Glucose Hemoglobin Sodium Chloride Glucose POC Glucose (mg/dL) 122 H 134 H Calcium Magnesium Alkaline Phosphatase Total Protein Albumin Arterial Blood Potassium Arterial Blood Glucose Crossmatch - Diagnostic Findings Chest x-ray: image reviewed (As noted in HPI.) Assessment and Plan Assessment: Impression: Status post aortic valve replacement for severe aortic valve regurgitation. History of severe aortic regurgitation. History of intermediate disease involving right coronary artery. Mildly impaired left ventricular systolic function with ejection fraction of 45% Recommendation: Continue ventilatory support. Continue hemodynamic support. Follow the protocol for possible weaning and extubation in the next few hours. We'll continue to follow. Chest x-ray and hemodynamics were reviewed Time with Patient: Greater than 30
[2020-10-05 16:18] LABS: Glucose,Whole Blood 143 mg/dL (75-99)
[2020-10-05 16:55] LABS: ABG Base Excess -1.1 mmol/L; ABG HCO3 26 mmol/L (21-25); ABG Oxygen Saturation 99.7 % (94-97); ABG PCO2 55 mmHg (35-45); ABG PH 7.28 (7.35-7.45); ABG PO2 168 mmHg (83-108); ABG TCO2 27 mmol/L (19-24)
[2020-10-05 16:57] LABS: Allen Test Performed? no
[2020-10-05 17:11] LABS: Glucose,Whole Blood 143 mg/dL (75-99)
--- NOTE | 2020-10-05 17:30 | OP ---
OPERATIVE REPORT DATE OF OPERATION: 10/05/2020 ATTENDING SURGEON: Dr. Valentín Painting. ASSISTANTS: 1. ASHLEY Abernathy. 2. ASHLEY Briones. PREOPERATIVE DIAGNOSIS: Severe aortic insufficiency, mild to moderate mitral regurgitation. POSTOPERATIVE DIAGNOSIS: Severe aortic insufficiency, trace to mild mitral regurgitation. PROCEDURE: Aortic valve replacement with a #23 mm Polanco Inspiris bioprosthetic aortic valve, clip ligation of the left atrial appendage with a 35 mm AtriClip, and intraoperative MIKI. ANESTHESIA: General. BLOOD LOSS: 500 mL. SUMMARY: Patient was brought to the operating room and placed in supine position. Following administration of general endotracheal anesthetic, placement of a [place] catheter and arterial line, adequate IV access and a Lara catheter, the patient was carefully prepped and draped in normal sterile fashion using chlorhexidine paint and sterile towels. A midline incision in the chest was made and sternum divided. Pericardium was opened. Heart size was mildly enlarged. Aorta was soft. The patient was heparinized to an AST of greater than 480. The aorta and vena cava were cannulated. Antegrade and retrograde cardioplegic catheters were positioned in the ascending aorta and the coronary sinus. Patient was placed on bypass, cross-clamp was placed, heart arrested with one liter of antegrade followed by 500 mL of retrograde cardioplegia. Retrograde cardioplegia was delivered 300 mL at the end of each 20-minute interval. First the base of the left atrial appendage was measured, and a 35 mm AtriClip was secured at the base, officially obliterating the left atrial appendage. Please make note that the preoperative MIKI prior to making chest incision showed good coaptation of the anterior and posterior leaflet with a good 2 to 3 mm zone of coaptation and only trace mitral regurgitation. Therefore it was decided to leave the mitral valve alone. At this point, a transverse aortotomy incision was made 2 cm distal to the takeoff of the right coronary artery. Handheld retractor was placed. The aortic valve was identified. It was trileaflet, thickened leaflets. The leaflets were excised, the annulus gently debrided, and it was irrigated out copiously with cold saline. It sized to a 23 mm Polanco Inspiris bioprosthetic aortic valve. Ticron 2-0 pledgetted sutures were placed circumferentially, ventricularly based. These were then passed through the sewing cuff of the valve, which was prepared in the usual fashion and then seated. It seated well, with no obstruction of either of the coronaries. At this point, all sutures were secured, cut, tied using the Cor-knot ligature system device. At this point, once the Cor-knots were applied, the valve was seated. The aortotomy incision was closed in a double-layered pledgeted 4-0 Prolene vertical mattress followed by an vyft-biv-oexl stitch from both sides. At this point, complete de-airing maneuvers were performed 3 times as the patient was placed head-down. One liter of warm blood retrograde cardioplegia was run. Cross-clamp was then removed. Once beating in normal sinus rhythm, patient was then brought off bypass. She came off bypass uneventfully with good hemodynamics, protamine delivered, patient decannulated. Ventricular pacing wires were placed. Mediastinal right pleural chest tube was placed. At this point, the sternum was closed with four #6 sternal wires and two [id number] [place] sternal cable closure devices. Skin and subcutaneous tissue fascia closed in 3 layers. No complications. Patient tolerated procedure well and was taken to the cardiovascular intensive care unit in stable condition. Postoperative MIKI showed trace to mild mitral regurgitation, excellent aortic valve function with no perivalvular leak. MMODL / IJN: [id number] /
[2020-10-05 18:04] LABS: ABG Base Excess -1.6 mmol/L; ABG HCO3 25 mmol/L (21-25); ABG Oxygen Saturation 99.6 % (94-97); ABG PCO2 51 mmHg (35-45); ABG PO2 165 mmHg (83-108); ABG TCO2 26 mmol/L (19-24)
[2020-10-05 18:07] LABS: Allen Test Performed? no
[2020-10-05 18:22] LABS: Glucose,Whole Blood 141 mg/dL (75-99)
[2020-10-05] MEDS: KETOROLAC 15 MG/ML 1 ML VIAL IVP SCH (18:33)
[2020-10-05] MEDS: hydrALAZINE HCL 20 MG/ML 1 ML VIAL IVP PRN ×2 (18:48→22:30)
[2020-10-05 18:52] LABS: Basophils # (A) 0.1 k/uL (0-0.2); Basophils % (A) 0 %; Eosinophils % (A) 0 %; HCT 37.1 % (34.0-46.0); HGB 12.5 gm/dL (11.4-16.0); Lymphocytes # (A) 0.9 k/uL (1.0-4.8); Lymphocytes % (A) 5 %; MCH 32.6 pg (25.0-35.0); MCHC 33.7 g/dL (31.0-37.0); MCV 96.8 fL (80.0-100.0); Mean Platelet Volume 7.9; Monocytes # (A) 0.7 k/uL (0-1.0); Monocytes % (A) 4 %; Neutrophils # (A) 16.4 k/uL (1.3-7.7); Neutrophils % (A) 90 %; Platelet Count 137 k/uL (150-450); RBC 3.83 m/uL (3.80-5.40); RDW 11.8 % (11.5-15.5); WBC 18.1 k/uL (3.8-10.6)
[2020-10-05 19:01] LABS: ALT 14 U/L (4-34); AST 42 U/L (14-36); African American GFR (CKD) >90 (>60 ml/min/1.73 sqM); Albumin 3.9 g/dL (3.5-5.0); Alkaline Phosphatase 50 U/L (38-126); Anion Gap 4 mmol/L; Blood Urea Nitrogen 14 mg/dL (7-17); Calcium 8.7 mg/dL (8.4-10.2); Carbon Dioxide 26 mmol/L (22-30); Chloride 106 mmol/L (98-107); Glucose 141 mg/dL (74-99); Non-African American GFR(CKD) 90 (>60 ml/min/1.73 sqM); Potassium 4.3 mmol/L (3.5-5.1); Sodium 136 mmol/L (137-145); Total Bilirubin 0.7 mg/dL (0.2-1.3); Total Protein 5.7 g/dL (6.3-8.2)
[2020-10-05 19:18] LABS: Glucose,Whole Blood 139 mg/dL (75-99)
[2020-10-05] MEDS ORDERED: hydrALAZINE HCL 20 MG/ML 1 ML VIAL IVP STA (19:39)
[2020-10-05] MEDS: HEPARIN SODIUM,PORCINE 5,000 UNIT/ML 1 ML VIAL SQ SCH (19:43)
[2020-10-05 20:12] LABS: Glucose,Whole Blood 150 mg/dL (75-99)
[2020-10-05] MEDS: MUPIROCIN 2% OINT 22 GM TUBE NASAL SCH (20:32)
[2020-10-05] MEDS: VANCOMYCIN 1,500 MG in SODIUM CHLORIDE 0.9% 250 ML IVPB SCH (20:32)
[2020-10-05] MEDS ORDERED: MUPIROCIN 2% OINT 22 GM TUBE NASAL ONE (20:45)
[2020-10-05] MEDS ORDERED: METOPROLOL TARTRATE 25 MG TAB PO STA (20:59)
[2020-10-05] MEDS ORDERED: METOPROLOL TARTRATE 12.5 MG TAB PO ONE (21:00)
[2020-10-05 21:33] LABS: Glucose,Whole Blood 153 mg/dL (75-99)
[2020-10-05 23:15] LABS: Glucose,Whole Blood 129 mg/dL (75-99)
[2020-10-06] MEDS: CLEVIDIPINE BUTYRATE 25 MG in EMPTY BAG 1 BAG IV SCH ×8 (00:26→20:43)
[2020-10-06] MEDS: KETOROLAC 15 MG/ML 1 ML VIAL IVP SCH ×5 (00:43→23:54)
[2020-10-06] MEDS: HEPARIN SODIUM,PORCINE 5,000 UNIT/ML 1 ML VIAL SQ SCH ×4 (00:43→23:53)
[2020-10-06 00:52] LABS: Glucose,Whole Blood 114 mg/dL (75-99)
[2020-10-06 02:25] LABS: Glucose,Whole Blood 168 mg/dL (75-99)
[2020-10-06] MEDS: hydrALAZINE HCL 20 MG/ML 1 ML VIAL IVP PRN (02:47)
[2020-10-06 04:10] LABS: Glucose,Whole Blood 136 mg/dL (75-99)
[2020-10-06 04:23] LABS: Basophils # (A) 0.1 k/uL (0-0.2); Basophils % (A) 0 %; Eosinophils % (A) 0 %; HCT 36.9 % (34.0-46.0); HGB 12.1 gm/dL (11.4-16.0); Lymphocytes # (A) 0.9 k/uL (1.0-4.8); Lymphocytes % (A) 5 %; MCHC 32.8 g/dL (31.0-37.0); MCV 97.6 fL (80.0-100.0); Mean Platelet Volume 7.9; Monocytes % (A) 5 %; Neutrophils # (A) 17.2 k/uL (1.3-7.7); Neutrophils % (A) 89 %; Platelet Count 121 k/uL (150-450); RBC 3.78 m/uL (3.80-5.40); RDW 12.1 % (11.5-15.5); WBC 19.3 k/uL (3.8-10.6)
[2020-10-06 04:29] LABS: Ionized Calcium 5.2 mg/dL (4.5-5.3)
[2020-10-06 04:38] LABS: Albumin 3.5 g/dL (3.5-5.0); Calcium 8.9 mg/dL (8.4-10.2); Magnesium 2.2 mg/dL (1.6-2.3); Potassium 4.2 mmol/L (3.5-5.1); Total Bilirubin 0.4 mg/dL (0.2-1.3); Total Protein 5.3 g/dL (6.3-8.2)
[2020-10-06] MEDS: HYDROcodone/APAP 5-325MG 1 EACH TAB PO PRN ×4 (05:13→21:37)
[2020-10-06 06:24] LABS: Glucose,Whole Blood 133 mg/dL (75-99)
[2020-10-06 07:44] LABS: Glucose,Whole Blood 91 mg/dL (75-99)
[2020-10-06] MEDS: IPRATROPIUM-ALBUTEROL 3 ML NEB INHALATION SCH ×4 (07:53→19:13)
[2020-10-06] MEDS: VANCOMYCIN 1,500 MG in SODIUM CHLORIDE 0.9% 250 ML IVPB SCH ×2 (08:14→20:43)
[2020-10-06] MEDS: LACTATED RINGERS 1,000 ML IV SCH (08:14)
[2020-10-06] MEDS: ATORVASTATIN 40 MG TAB PO SCH (08:14)
[2020-10-06] MEDS: buPROPion SR 100 MG TABLET.ER PO SCH (08:15)
[2020-10-06] MEDS: MUPIROCIN 2% OINT 22 GM TUBE NASAL SCH ×2 (08:15→20:44)
[2020-10-06] MEDS: CLOPIDOGREL 75 MG TAB PO SCH (08:15)
[2020-10-06] MEDS: METOPROLOL TARTRATE 25 MG TAB PO SCH ×2 (08:15→20:44)
--- NOTE | 2020-10-06 08:27 | P.PN ---
Subjective Progress Note Date: 10/06/20 Principal diagnosis: Severe aortic insufficiency, trace to mild mitral regurgitation. Previous medical history of cardiomyopathy with EF around 40%, hypertension, previous tobacco dependence with preoperative FEV1 91% of predicted, left internal carotid artery stenosis 50-79%, occasional marijuana use, DVT in the right leg in 2017 after surgery POD #1 aortic valve replacement with a #23 mm Polanco Inspiris bioprosthetic aortic valve, clip ligation of the left atrial appendage with a 35 mm AtriClip, and intraoperative transesophageal echocardiogram The patient is currently sitting up in a recliner in no acute distress in the intensive care unit. She was successfully extubated last night at 18:11. She does complain of postsurgical type incisional and chest tube pain mostly controlled on current medication regimen, denies shortness of breath. Remains in normal sinus rhythm and hemodynamically stable on Cleviprex for blood pressure control. Right internal jugular [place]/Cordis, right radial arterial line, mediastinal and right pleural chest tube all remain present. No new concerns Objective - Vital Signs Vital signs: Vital Signs Temp 99.1 F 10/06/20 04:00 Pulse 73 10/06/20 07:56 Resp 12 10/06/20 07:00 BP 129/51 10/06/20 06:15 Pulse Ox 98 10/06/20 07:15 Intake & Output 10/05/20 10/06/20 10/06/20 18:59 06:59 18:59 Intake Total 0503.152 8084.774 79 Output Total 2970 767 70 Balance -4079.832 8435.774 9 Weight 98.8 kg Intake: IV 914 938 79 ACETAMINOPHEN IV (For NPO 100 100 ) 1,000 mg In Empty Bag 1 bag @ 400 mls/hr IVPB Q6H [facility] Rx#:[id number] CO/CI 150 180 20 Lactated Ringers 1,000 ml 350 550 50 @ 20 mls/hr IV .Q24H [facility] Rx#:[id number] Pressure Bags 63 108 9 Intake, IV Titration 90.886 368.774 Amount Clevidipine Butyrate 25 60.800 329.5 mg In Empty Bag 1 bag @ 1 MG/HR 2 mls/hr IV .Q24H [facility] Rx#:[id number] Dexmedetomidine/0.9% NaCl 3.787 (Pmx) 400 mcg In Empty Bag 1 bag @ Titrate IV . Q0M [facility] Rx#:[id number] Insulin Regular 100 unit 5.967 39.274 In Sodium Chloride 0.9% 100 ml @ Per Protocol IV .Q0M [facility] Rx#:[id number] propofoL 1,000 mg In 20.332 Empty Bag 1 bag @ Titrate IV .Q0M [facility] Rx#: [id number] Oral 540 Output: Chest Tube Drainage 350 260 40 Mediastinal 350 260 40 Urine 1120 507 30 Estimated Blood Loss 1500 Other: Voiding Method Indwelling Catheter Indwelling Catheter ABP, PAP, CO, CI - Last Documented Arterial Blood Pressure 113/41 Pulmonary Artery Pressure 28/6 Cardiac Output 6.7 Cardiac Index 3.2 - Constitutional General appearance: Present: cooperative, no acute distress, obese - Respiratory Details: Lungs sounds diminished bilaterally. Respirations even, nonlabored. Currently on 3 L nasal cannula with oxygen saturation 97%. Able to achieve 1500 mL on her incentive spirometry. Strong productive cough. Mediastinal/right pleural chest tube present and connected to continuous wall suction, 160 mL of thin serosanguineous drainage overnight, 650 mL since surgery, no air leak present. - Cardiovascular Details: S1, S2 present. Regular rate and rhythm, sinus rhythm on telemetry. Sternum stable. Ventricular epicardial pacemaker wires present, connected to generator, VVI mode with backup rate 50 bpm. Palpable peripheral pulses bilaterally. No edema present. No calf pain or tenderness noted. Heart hugger in place with patient demonstrating appropriate use. Antiembolism stockings, SCDs present. Right internal jugular [place]/Cordis, right radial arterial line present. Last CO/CI 6.7/3.2 with PA pressures 29/9, CVP 7, currently on Cleviprex for blood pressure control but no other IV infusions. - Gastrointestinal Gastrointestinal Comment(s): Abdomen soft, nontender, nondistended. Hypoactive bowel sounds present 4 quadrants. Tolerating clear liquids. Negative flatus. - Genitourinary Genitourinary Comment(s): Lara present draining clear, yellow urine. Output 30-40 mL/h overnight - Integumentary Integumentary Comment(s): Skin is warm and dry with evidence of good perfusion. Anterior chest incision well approximated and covered with dry intact dressing - Neurologic Neurologic: Present: CNII-XII intact - Musculoskeletal Musculoskeletal: Present: gait normal, strength equal bilaterally - Psychiatric Psychiatric: Present: A&O x's 3, appropriate affect, intact judgment & insight - Allied health notes Allied health notes reviewed: nursing - Labs CBC & Chem 7: 10/06/20 04:08 10/06/20 04:08 Labs: Abnormal Lab Results - Last 24 Hours (Table) 09/28/20 10/05/20 10/05/20 Range/Units 08:47 08:44 09:52 WBC (3.8-10.6) k/uL RBC (3.80-5.40) m/uL Hgb (11.4-16.0) gm/dL Hct (34.0-46.0) % Plt Count (150-450) k/uL Neutrophils # (1.3-7.7) k/uL Lymphocytes # (1.0-4.8) k/uL PT (9.0-12.0) sec INR (<1.2) APTT (22.0-30.0) sec ABG pH (7.35-7.45) ABG pCO2 (35-45) mmHg ABG pO2 408 H 239 H (83-108) mmHg ABG HCO3 27 H (21-25) mmol/L ABG Total CO2 26 H 28 H (19-24) mmol/L ABG O2 Saturation 99.9 H 99.6 H (94-97) % ABG Hematocrit (34.0-46.0) % ABG Sodium (135-146) mmol/L ABG Potassium (3.4-4.5) mmol/L ABG Ionized Calcium (4.5-5.3) mg/dL ABG Glucose 100 H (75-99) mg/dL Hemoglobin 11.1 L (11.4-16.0) gm/dL Sodium (137-145) mmol/L Chloride (98-107) mmol/L Glucose (74-99) mg/dL POC Glucose (mg/dL) (75-99) mg/dL Calcium (8.4-10.2) mg/dL Magnesium (1.6-2.3) mg/dL AST (14-36) U/L Alkaline Phosphatase (38-126) U/L Total Protein (6.3-8.2) g/dL Albumin (3.5-5.0) g/dL Arterial Blood Potassium (3.4-4.5) mmol/L Arterial Blood Glucose 100 H (75-99) mg/dL Crossmatch See Detail 10/05/20 10/05/20 10/05/20 Range/Units 10:14 10:46 11:49 WBC (3.8-10.6) k/uL RBC (3.80-5.40) m/uL Hgb (11.4-16.0) gm/dL Hct (34.0-46.0) % Plt Count (150-450) k/uL Neutrophils # (1.3-7.7) k/uL Lymphocytes # (1.0-4.8) k/uL PT (9.0-12.0) sec INR (<1.2) APTT (22.0-30.0) sec ABG pH (7.35-7.45) ABG pCO2 (35-45) mmHg ABG pO2 >420 H 411 H 183 H (83-108) mmHg ABG HCO3 26 H (21-25) mmol/L ABG Total CO2 25 H 26 H 27 H (19-24) mmol/L ABG O2 Saturation 100.0 H 100.0 H 99.4 H (94-97) % ABG Hematocrit 25 L 25 L 31 L (34.0-46.0) % ABG Sodium 133 L (135-146) mmol/L ABG Potassium 4.9 H 4.8 H (3.4-4.5) mmol/L ABG Ionized Calcium 4.1 L 4.3 L (4.5-5.3) mg/dL ABG Glucose 200 H 172 H 129 H (75-99) mg/dL Hemoglobin 8.1 L 8.1 L 10.2 L (11.4-16.0) gm/dL Sodium (137-145) mmol/L Chloride (98-107) mmol/L Glucose (74-99) mg/dL POC Glucose (mg/dL) (75-99) mg/dL Calcium (8.4-10.2) mg/dL Magnesium (1.6-2.3) mg/dL AST (14-36) U/L Alkaline Phosphatase (38-126) U/L Total Protein (6.3-8.2) g/dL Albumin (3.5-5.0) g/dL Arterial Blood Potassium 4.9 H 4.8 H (3.4-4.5) mmol/L Arterial Blood Glucose 200 H 172 H 129 H (75-99) mg/dL Crossmatch 10/05/20 10/05/20 10/05/20 Range/Units 12:23 12:23 12:23 WBC (3.8-10.6) k/uL RBC 3.14 L (3.80-5.40) m/uL Hgb 9.7 L D (11.4-16.0) gm/dL Hct 29.8 L (34.0-46.0) % Plt Count 101 L (150-450) k/uL Neutrophils # (1.3-7.7) k/uL Lymphocytes # (1.0-4.8) k/uL PT 12.3 H (9.0-12.0) sec INR 1.2 H (<1.2) APTT 30.3 H (22.0-30.0) sec ABG pH (7.35-7.45) ABG pCO2 (35-45) mmHg ABG pO2 (83-108) mmHg ABG HCO3 (21-25) mmol/L ABG Total CO2 (19-24) mmol/L ABG O2 Saturation (94-97) % ABG Hematocrit (34.0-46.0) % ABG Sodium (135-146) mmol/L ABG Potassium (3.4-4.5) mmol/L ABG Ionized Calcium (4.5-5.3) mg/dL ABG Glucose (75-99) mg/dL Hemoglobin (11.4-16.0) gm/dL Sodium (137-145) mmol/L Chloride (98-107) mmol/L Glucose (74-99) mg/dL POC Glucose (mg/dL) 119 H (75-99) mg/dL Calcium (8.4-10.2) mg/dL Magnesium (1.6-2.3) mg/dL AST (14-36) U/L Alkaline Phosphatase (38-126) U/L Total Protein (6.3-8.2) g/dL Albumin (3.5-5.0) g/dL Arterial Blood Potassium (3.4-4.5) mmol/L Arterial Blood Glucose (75-99) mg/dL Crossmatch 10/05/20 10/05/20 10/05/20 Range/Units 12:23 12:44 12:45 WBC (3.8-10.6) k/uL RBC (3.80-5.40) m/uL Hgb (11.4-16.0) gm/dL Hct (34.0-46.0) % Plt Count (150-450) k/uL Neutrophils # (1.3-7.7) k/uL Lymphocytes # (1.0-4.8) k/uL PT (9.0-12.0) sec INR (<1.2) APTT (22.0-30.0) sec ABG pH (7.35-7.45) ABG pCO2 (35-45) mmHg ABG pO2 >400 H (83-108) mmHg ABG HCO3 26 H (21-25) mmol/L ABG Total CO2 27 H (19-24) mmol/L ABG O2 Saturation 100.0 H (94-97) % ABG Hematocrit (34.0-46.0) % ABG Sodium (135-146) mmol/L ABG Potassium (3.4-4.5) mmol/L ABG Ionized Calcium (4.5-5.3) mg/dL ABG Glucose (75-99) mg/dL Hemoglobin (11.4-16.0) gm/dL Sodium 135 L (137-145) mmol/L Chloride 108 H (98-107) mmol/L Glucose 110 H (74-99) mg/dL POC Glucose (mg/dL) 111 H (75-99) mg/dL Calcium 8.1 L (8.4-10.2) mg/dL Magnesium 2.6 H (1.6-2.3) mg/dL AST (14-36) U/L Alkaline Phosphatase 34 L (38-126) U/L Total Protein 4.3 L (6.3-8.2) g/dL Albumin 2.7 L (3.5-5.0) g/dL Arterial Blood Potassium (3.4-4.5) mmol/L Arterial Blood Glucose (75-99) mg/dL Crossmatch 10/05/20 10/05/20 10/05/20 Range/Units 13:58 14:54 15:00 WBC 15.9 H (3.8-10.6) k/uL RBC 3.75 L (3.80-5.40) m/uL Hgb (11.4-16.0) gm/dL Hct (34.0-46.0) % Plt Count 130 L (150-450) k/uL Neutrophils # 12.4 H (1.3-7.7) k/uL Lymphocytes # (1.0-4.8) k/uL PT (9.0-12.0) sec INR (<1.2) APTT (22.0-30.0) sec ABG pH (7.35-7.45) ABG pCO2 (35-45) mmHg ABG pO2 (83-108) mmHg ABG HCO3 (21-25) mmol/L ABG Total CO2 (19-24) mmol/L ABG O2 Saturation (94-97) % ABG Hematocrit (34.0-46.0) % ABG Sodium (135-146) mmol/L ABG Potassium (3.4-4.5) mmol/L ABG Ionized Calcium (4.5-5.3) mg/dL ABG Glucose (75-99) mg/dL Hemoglobin (11.4-16.0) gm/dL Sodium (137-145) mmol/L Chloride (98-107) mmol/L Glucose (74-99) mg/dL POC Glucose (mg/dL) 122 H 134 H (75-99) mg/dL Calcium (8.4-10.2) mg/dL Magnesium (1.6-2.3) mg/dL AST (14-36) U/L Alkaline Phosphatase (38-126) U/L Total Protein (6.3-8.2) g/dL Albumin (3.5-5.0) g/dL Arterial Blood Potassium (3.4-4.5) mmol/L Arterial Blood Glucose (75-99) mg/dL Crossmatch 10/05/20 10/05/20 10/05/20 Range/Units 15:59 16:47 16:51 WBC (3.8-10.6) k/uL RBC (3.80-5.40) m/uL Hgb (11.4-16.0) gm/dL Hct (34.0-46.0) % Plt Count (150-450) k/uL Neutrophils # (1.3-7.7) k/uL Lymphocytes # (1.0-4.8) k/uL PT (9.0-12.0) sec INR (<1.2) APTT (22.0-30.0) sec ABG pH 7.28 L (7.35-7.45) ABG pCO2 55 H (35-45) mmHg ABG pO2 168 H (83-108) mmHg ABG HCO3 26 H (21-25) mmol/L ABG Total CO2 27 H (19-24) mmol/L ABG O2 Saturation 99.7 H (94-97) % ABG Hematocrit (34.0-46.0) % ABG Sodium (135-146) mmol/L ABG Potassium (3.4-4.5) mmol/L ABG Ionized Calcium (4.5-5.3) mg/dL ABG Glucose (75-99) mg/dL Hemoglobin (11.4-16.0) gm/dL Sodium (137-145) mmol/L Chloride (98-107) mmol/L Glucose (74-99) mg/dL POC Glucose (mg/dL) 143 H 143 H (75-99) mg/dL Calcium (8.4-10.2) mg/dL Magnesium (1.6-2.3) mg/dL AST (14-36) U/L Alkaline Phosphatase (38-126) U/L Total Protein (6.3-8.2) g/dL Albumin (3.5-5.0) g/dL Arterial Blood Potassium (3.4-4.5) mmol/L Arterial Blood Glucose (75-99) mg/dL Crossmatch 10/05/20 10/05/20 10/05/20 Range/Units 17:59 18:02 18:42 WBC 18.1 H (3.8-10.6) k/uL RBC (3.80-5.40) m/uL Hgb (11.4-16.0) gm/dL Hct (34.0-46.0) % Plt Count 137 L (150-450) k/uL Neutrophils # 16.4 H (1.3-7.7) k/uL Lymphocytes # 0.9 L (1.0-4.8) k/uL PT (9.0-12.0) sec INR (<1.2) APTT (22.0-30.0) sec ABG pH 7.30 L (7.35-7.45) ABG pCO2 51 H (35-45) mmHg ABG pO2 165 H (83-108) mmHg ABG HCO3 (21-25) mmol/L ABG Total CO2 26 H (19-24) mmol/L ABG O2 Saturation 99.6 H (94-97) % ABG Hematocrit (34.0-46.0) % ABG Sodium (135-146) mmol/L ABG Potassium (3.4-4.5) mmol/L ABG Ionized Calcium (4.5-5.3) mg/dL ABG Glucose (75-99) mg/dL Hemoglobin (11.4-16.0) gm/dL Sodium (137-145) mmol/L Chloride (98-107) mmol/L Glucose (74-99) mg/dL POC Glucose (mg/dL) 141 H (75-99) mg/dL Calcium (8.4-10.2) mg/dL Magnesium (1.6-2.3) mg/dL AST (14-36) U/L Alkaline Phosphatase (38-126) U/L Total Protein (6.3-8.2) g/dL Albumin (3.5-5.0) g/dL Arterial Blood Potassium (3.4-4.5) mmol/L Arterial Blood Glucose (75-99) mg/dL Crossmatch 10/05/20 10/05/20 10/05/20 Range/Units 18:42 18:58 20:10 WBC (3.8-10.6) k/uL RBC (3.80-5.40) m/uL Hgb (11.4-16.0) gm/dL Hct (34.0-46.0) % Plt Count (150-450) k/uL Neutrophils # (1.3-7.7) k/uL Lymphocytes # (1.0-4.8) k/uL PT (9.0-12.0) sec INR (<1.2) APTT (22.0-30.0) sec ABG pH (7.35-7.45) ABG pCO2 (35-45) mmHg ABG pO2 (83-108) mmHg ABG HCO3 (21-25) mmol/L ABG Total CO2 (19-24) mmol/L ABG O2 Saturation (94-97) % ABG Hematocrit (34.0-46.0) % ABG Sodium (135-146) mmol/L ABG Potassium (3.4-4.5) mmol/L ABG Ionized Calcium (4.5-5.3) mg/dL ABG Glucose (75-99) mg/dL Hemoglobin (11.4-16.0) gm/dL Sodium 136 L (137-145) mmol/L Chloride (98-107) mmol/L Glucose 141 H (74-99) mg/dL POC Glucose (mg/dL) 139 H 150 H (75-99) mg/dL Calcium (8.4-10.2) mg/dL Magnesium (1.6-2.3) mg/dL AST 42 H (14-36) U/L Alkaline Phosphatase (38-126) U/L Total Protein 5.7 L (6.3-8.2) g/dL Albumin (3.5-5.0) g/dL Arterial Blood Potassium (3.4-4.5) mmol/L Arterial Blood Glucose (75-99) mg/dL Crossmatch 10/05/20 10/05/20 10/06/20 Range/Units 21:32 23:14 00:51 WBC (3.8-10.6) k/uL RBC (3.80-5.40) m/uL Hgb (11.4-16.0) gm/dL Hct (34.0-46.0) % Plt Count (150-450) k/uL Neutrophils # (1.3-7.7) k/uL Lymphocytes # (1.0-4.8) k/uL PT (9.0-12.0) sec INR (<1.2) APTT (22.0-30.0) sec ABG pH (7.35-7.45) ABG pCO2 (35-45) mmHg ABG pO2 (83-108) mmHg ABG HCO3 (21-25) mmol/L ABG Total CO2 (19-24) mmol/L ABG O2 Saturation (94-97) % ABG Hematocrit (34.0-46.0) % ABG Sodium (135-146) mmol/L ABG Potassium (3.4-4.5) mmol/L ABG Ionized Calcium (4.5-5.3) mg/dL ABG Glucose (75-99) mg/dL Hemoglobin (11.4-16.0) gm/dL Sodium (137-145) mmol/L Chloride (98-107) mmol/L Glucose (74-99) mg/dL POC Glucose (mg/dL) 153 H 129 H 114 H (75-99) mg/dL Calcium (8.4-10.2) mg/dL Magnesium (1.6-2.3) mg/dL AST (14-36) U/L Alkaline Phosphatase (38-126) U/L Total Protein (6.3-8.2) g/dL Albumin (3.5-5.0) g/dL Arterial Blood Potassium (3.4-4.5) mmol/L Arterial Blood Glucose (75-99) mg/dL Crossmatch 10/06/20 10/06/20 10/06/20 Range/Units 02:24 04:08 04:08 WBC 19.3 H (3.8-10.6) k/uL RBC 3.78 L (3.80-5.40) m/uL Hgb (11.4-16.0) gm/dL Hct (34.0-46.0) % Plt Count 121 L (150-450) k/uL Neutrophils # 17.2 H (1.3-7.7) k/uL Lymphocytes # 0.9 L (1.0-4.8) k/uL PT (9.0-12.0) sec INR (<1.2) APTT (22.0-30.0) sec ABG pH (7.35-7.45) ABG pCO2 (35-45) mmHg ABG pO2 (83-108) mmHg ABG HCO3 (21-25) mmol/L ABG Total CO2 (19-24) mmol/L ABG O2 Saturation (94-97) % ABG Hematocrit (34.0-46.0) % ABG Sodium (135-146) mmol/L ABG Potassium (3.4-4.5) mmol/L ABG Ionized Calcium (4.5-5.3) mg/dL ABG Glucose (75-99) mg/dL Hemoglobin (11.4-16.0) gm/dL Sodium 133 L (137-145) mmol/L Chloride (98-107) mmol/L Glucose 136 H (74-99) mg/dL POC Glucose (mg/dL) 168 H (75-99) mg/dL Calcium (8.4-10.2) mg/dL Magnesium (1.6-2.3) mg/dL AST 42 H (14-36) U/L Alkaline Phosphatase (38-126) U/L Total Protein 5.3 L (6.3-8.2) g/dL Albumin (3.5-5.0) g/dL Arterial Blood Potassium (3.4-4.5) mmol/L Arterial Blood Glucose (75-99) mg/dL Crossmatch 10/06/20 10/06/20 Range/Units 04:09 06:22 WBC (3.8-10.6) k/uL RBC (3.80-5.40) m/uL Hgb (11.4-16.0) gm/dL Hct (34.0-46.0) % Plt Count (150-450) k/uL Neutrophils # (1.3-7.7) k/uL Lymphocytes # (1.0-4.8) k/uL PT (9.0-12.0) sec INR (<1.2) APTT (22.0-30.0) sec ABG pH (7.35-7.45) ABG pCO2 (35-45) mmHg ABG pO2 (83-108) mmHg ABG HCO3 (21-25) mmol/L ABG Total CO2 (19-24) mmol/L ABG O2 Saturation (94-97) % ABG Hematocrit (34.0-46.0) % ABG Sodium (135-146) mmol/L ABG Potassium (3.4-4.5) mmol/L ABG Ionized Calcium (4.5-5.3) mg/dL ABG Glucose (75-99) mg/dL Hemoglobin (11.4-16.0) gm/dL Sodium (137-145) mmol/L Chloride (98-107) mmol/L Glucose (74-99) mg/dL POC Glucose (mg/dL) 136 H 133 H (75-99) mg/dL Calcium (8.4-10.2) mg/dL Magnesium (1.6-2.3) mg/dL AST (14-36) U/L Alkaline Phosphatase (38-126) U/L Total Protein (6.3-8.2) g/dL Albumin (3.5-5.0) g/dL Arterial Blood Potassium (3.4-4.5) mmol/L Arterial Blood Glucose (75-99) mg/dL Crossmatch - Imaging and Cardiology Chest x-ray: image reviewed Assessment and Plan Assessment: 1. Severe aortic insufficiency, trace to mild mitral regurgitation, status post bioprosthetic aortic valve replacement 2. Cardiomyopathy with EF around 40% on MIKI 3. Hypertension 4. Previous tobacco dependence with preoperative FEV1 91% of predicted 5. Left internal carotid artery stenosis 50-79% 6. Occasional marijuana use 7. DVT in the right leg in 2017 after surgery Plan: 1. Continue aspirin, statin, Plavix, beta el therapy. Will increase beta el as tolerated 2. Wean Cleviprex as able. Will add OSORIO inhibitor for afterload reduction 3. Wean O2 as tolerated. Encourage incentive spirometry 10 times every hour while awake. Bronchodilators per pulmonology. Encourage continued smoking c essation 4. Increase activity, ambulate as tolerated. PT/OT/cardiac rehab consulted 5. Will monitor daily labs and x-rays. Electrode placement per protocol 6. GI/DVT prophylaxis 7. Pain control with current medication regimen 8. Insulin management per Dr. Ortiz. Patient is not diabetic, preoperative hemoglobin A1c 5.6% 9. Discontinue [place], cordis. Keep arterial line for another 24 hours for frequent blood draws while on insulin gtt 10. Continue mediastinal and left pleural chest tubes for another 24 hours, monitor output and consistency 11. Continue Lara catheter for another 24 hours for strict air. Intake and output 12. Monitor daily weights on standup scale, not bed scale 13. More recommendations to follow based on patient's progress The patient was seen and examined and I agree with the assessment and plan documented by the nurse practitioner Time with Patient: Greater than 30
[2020-10-06] MEDS ORDERED: PANTOPRAZOLE 40 MG/10 ML VIAL IVP SCH (09:00)
[2020-10-06] MEDS ORDERED: ASPIRIN 325 MG TAB PO SCH (09:00)
[2020-10-06] MEDS ORDERED: bisacodyL 10 MG SUPP RECTAL PRN (09:00)
[2020-10-06] MEDS ORDERED: buPROPion SR 100 MG TABLET.ER PO SCH (09:00)
[2020-10-06] MEDS ORDERED: METOPROLOL TARTRATE 12.5 MG TAB PO SCH (09:00)
--- NOTE | 2020-10-06 09:08 | P.CONS ---
History of Present Illness - Reason for Consult Consult date: 10/05/20 Medical management Requesting physician: Dominik Painting - Chief Complaint Post aortic valve placement, history of coagulopathy, chronic anemia. - History of Present Illness 60-year-old female was transferred recently from [place] to [place] to take care of her mom she is new to our office was seen and evaluated for recurrent episode of shortness of breath and mild chest pain along with anemia found to have very loud murmur. Patient ended up seeing cardiology transesophageal echocardiogram along with heart cath were done and patient was diagnosed with severe aortic regurgitation. Patient was referred to cardiothoracic service and was recommended to go for elective aortic valve placement. Surgery was done today successfully with no major complication patient was on the ventilator for sure. If time was taking off still have chest tube still have Ranchester-Verónica cath eter along with another central line. Hemodynamically very stable and patient is not in any pain. Review of Systems CONSTITUTIONAL: Well-developed no acute respiratory distress. EYES: No icterus sclerae, no conjunctivitis. EARS, NOSE, MOUTH, THROAT, and FACE: No sore throat, lymphadenopathy, carotid bruits or deformity. RESPIRATORY: Mild shortness of breath chest pain with deep inspiration. CARDIOVASCULAR: Positive PVCs with no angina. GASTROINTESTINAL: No Abd pain, Nausea or vomiting, no Diarrhea or constipation, No GI Bleed, no distention or masses. GENITOURINARY: Negative for Hematuria or UTI, no kidney stones. INTEGUMENT/BREAST: Negative for any muscular injury with mild osteoarthritis.. HEMATOLOGIC/LYMPHATIC: Negative for bleed or purpura. MUSCULOSKELTAL: Negative for Myalgia or arthralgia. NEURLOGICAL: No LOC, Sz or syncope, blurred vision dizziness or abnormality.. BEHAVIORAL/PSYCH: Negative. ENDOCRINE: Negative. Social history: Patient used to smoke 5-10 cigarettes a day for over 20 years no code abuse no illicit drug use she is to care of her mom currently. Family history: Patient has 2 children both are living and well she has 1 sister with no major medical problem and her father from coagulopathy post surgery her mother is living with mild memory loss. Past Medical History Past Medical History: Deep Vein Thrombosis (DVT), Hypertension, Osteoarthritis (OA) Additional Past Medical History / Comment(s): DVT right leg 2017 after surgery, recent hx. heart murmur History of Any Multi-Drug Resistant Organisms: None Reported Past Surgical History: Bowel Resection, Section, Heart Catheterization, Hernia Repair, Hysterectomy, Orthopedic Surgery Additional Past Surgical History / Comment(s): arthroscopy knee, ovarian cyst mckeon rg., recent heart cath & MIKI Past Anesthesia/Blood Transfusion Reactions: No Reported Reaction Additional Past Anesthesia/Blood Transfusion Reaction / Comm: uncontrollable shakes when coming out Smoking Status: Former smoker - Past Family History Father Family Medical History: Blood Disorder, Deep Vein Thrombosis (DVT) Additional Family Medical History / Comment(s): not sure what name of clotting disorder is Medications and Allergies Home Medications Medication Instructions Recorded Confirmed Type Acetaminophen/Diphenhydramine 1 tab PO HS 08/23/20 10/05/20 History [Tylenol PM 500-25mg] Fexofenadine HCl [Marissa Allergy] 180 mg PO DAILY 08/23/20 10/05/20 History Magnesium 200 mg PO DAILY 08/23/20 10/05/20 History Metoprolol Succinate (ER) [Toprol 25 mg PO DAILY 08/23/20 10/05/20 History XL] buPROPion HCL [Wellbutrin SR] 100 mg PO DAILY 08/23/20 10/05/20 History Mupirocin 2% Oint [Bactroban 2% 1 applic NASAL BID #1 tube 09/28/20 10/05/20 Rx Oint] Aspirin 81 mg PO DAILY 10/01/20 10/05/20 History Atorvastatin [Lipitor] 40 mg PO DAILY 10/01/20 10/05/20 History Allergies Allergy/AdvReac Type Severity Reaction Status Date / Time Penicillins Allergy Anaphylaxis Unverified 10/05/20 06:01 morphine AdvReac Itching Unverified 10/05/20 06:01 Physical Exam Vitals: Vital Signs Temp Pulse Pulse Resp BP BP BP 10/05/20 15:36 78 10/05/20 15:22 69 10/05/20 15:00 68 12 10/05/20 14:45 64 12 10/05/20 14:30 64 12 10/05/20 14:15 67 13 10/05/20 14:00 62 13 10/05/20 13:45 73 25 H 10/05/20 13:30 66 12 10/05/20 13:20 14 10/05/20 13:15 65 12 10/05/20 13:00 64 12 126/65 10/05/20 12:45 65 12 10/05/20 12:30 66 16 10/05/20 12:17 65 16 10/05/20 06:00 97.7 F 73 16 142/70 145/77 Pulse Ox 10/05/20 15:36 10/05/20 15:22 10/05/20 15:00 100 10/05/20 14:45 100 10/05/20 14:30 100 10/05/20 14:15 100 10/05/20 14:00 100 10/05/20 13:45 100 10/05/20 13:30 100 10/05/20 13:20 10/05/20 13:15 100 10/05/20 13:00 100 10/05/20 12:45 100 10/05/20 12:30 100 10/05/20 12:17 100 10/05/20 06:00 98 Intake and Output 10/05/20 10/05/20 10/05/20 06:59 14:59 22:59 Intake Total 100 535.120 89.667 Output Total 2408 240 Balance 100 -1872.880 -150.333 Intake: IV 100 498 79 CO/CI 70 20 Lactated Ringers 1,000 ml 150 50 @ 50 mls/hr IV .Q20H RICHI Rx#:[id number] Pressure Bags 27 9 Intake, IV Titration 37.120 10.667 Amount Clevidipine Butyrate 25 13.001 10.667 mg In Empty Bag 1 bag @ 1 MG/HR 2 mls/hr IV .Q24H RICHI Rx#:[id number] Dexmedetomidine/0.9% NaCl 3.787 (Pmx) 400 mcg In Empty Bag 1 bag @ Titrate IV . Q0M R[facility]HI Rx#:[id number] propofoL 1,000 mg In 20.332 Empty Bag 1 bag @ Titrate IV .Q0M RICHI Rx#: [id number] Output: Chest Tube Drainage 278 40 Mediastinal 278 40 Urine 630 200 Estimated Blood Loss 1500 Other: Voiding Method Indwelling Catheter Weight 93.7 kg ABP, PAP, CO, CI - Last 8 Hours Arterial Blood Pressure 126/48 Arterial Blood Pressure 130/44 Arterial Blood Pressure 141/44 Arterial Blood Pressure 126/54 Arterial Blood Pressure 146/54 Arterial Blood Pressure 137/53 Arterial Blood Pressure 121/52 Arterial Blood Pressure 119/50 Arterial Blood Pressure 120/50 Arterial Blood Pressure 127/54 Arterial Blood Pressure 136/52 Arterial Blood Pressure 118/42 Pulmonary Artery Pressure 35/15 Pulmonary Artery Pressure 31/15 Pulmonary Artery Pressure 31/16 Pulmonary Artery Pressure 35/18 Pulmonary Artery Pressure 32/16 Pulmonary Artery Pressure 32/15 Pulmonary Artery Pressure 34/16 Pulmonary Artery Pressure 30/14 Pulmonary Artery Pressure 31/12 Pulmonary Artery Pressure 28/14 Pulmonary Artery Pressure 39/14 Pulmonary Artery Pressure 27/8 Cardiac Output 6.2 Cardiac Output 5.5 Cardiac Output 5.3 Cardiac Output 4.8 Cardiac Index 2.9 Cardiac Index 2.6 Cardiac Index 2.6 Cardiac Index 2.5 Cardiac Index 2.3 General Appearance: Alert, cooperative, no distress, appears stated age. Neck HEENT: Supple, no lymphadenopathy, no thyroid enlargement, no carotid bruits. Ranchester-Verónica catheter on the right side Lungs: Decreased breath sounds bilaterally especially in the left side and fine rhonchi no crackles or wheezes. Chest Wall: Slight pain and discomfort in the chest wall area from her surgical site with no other deformity still have chest tube. Heart: Regular rate and rhythm, S1, S2 normal, no murmur, rub or gallop. Back: Symmetric, no curvature, ROM normal, no CVA tenderness. Abdomen: Soft, non-tender, bowel sounds active all four quadrants, no masses, no organomegaly. Extremities: Extremities normal, atraumatic, no cyanosis or edema. Pulses: 2+ and symmetric. Skin: Skin color, texture, tugor normal, no rashes or lesions. Neurologic: Alert oriented x3 cranial nerves II through XII intact, no motor deficit, no abnormal balance or gait. Results CBC & Chem 7: 10/06/20 04:08 10/06/20 04:08 Labs: Abnormal Lab Results - Last 24 Hours (Table) 09/28/20 10/05/20 10/05/20 Range/Units 08:47 08:44 09:52 WBC (3.8-10.6) k/uL RBC (3.80-5.40) m/uL Hgb (11.4-16.0) gm/dL Hct (34.0-46.0) % Plt Count (150-450) k/uL Neutrophils # (1.3-7.7) k/uL PT (9.0-12.0) sec INR (<1.2) APTT (22.0-30.0) sec ABG pO2 408 H 239 H (83-108) mmHg ABG HCO3 27 H (21-25) mmol/L ABG Total CO2 26 H 28 H (19-24) mmol/L ABG O2 Saturation 99.9 H 99.6 H (94-97) % ABG Hematocrit (34.0-46.0) % ABG Sodium (135-146) mmol/L ABG Potassium (3.4-4.5) mmol/L ABG Ionized Calcium (4.5-5.3) mg/dL ABG Glucose 100 H (75-99) mg/dL Hemoglobin 11.1 L (11.4-16.0) gm/dL Sodium (137-145) mmol/L Chloride (98-107) mmol/L Glucose (74-99) mg/dL POC Glucose (mg/dL) (75-99) mg/dL Calcium (8.4-10.2) mg/dL Magnesium (1.6-2.3) mg/dL Alkaline Phosphatase (38-126) U/L Total Protein (6.3-8.2) g/dL Albumin (3.5-5.0) g/dL Arterial Blood Potassium (3.4-4.5) mmol/L Arterial Blood Glucose 100 H (75-99) mg/dL Crossmatch See Detail 10/05/20 10/05/20 10/05/20 Range/Units 10:14 10:46 11:49 WBC (3.8-10.6) k/uL RBC (3.80-5.40) m/uL Hgb (11.4-16.0) gm/dL Hct (34.0-46.0) % Plt Count (150-450) k/uL Neutrophils # (1.3-7.7) k/uL PT (9.0-12.0) sec INR (<1.2) APTT (22.0-30.0) sec ABG pO2 >420 H 411 H 183 H (83-108) mmHg ABG HCO3 26 H (21-25) mmol/L ABG Total CO2 25 H 26 H 27 H (19-24) mmol/L ABG O2 Saturation 100.0 H 100.0 H 99.4 H (94-97) % ABG Hematocrit 25 L 25 L 31 L (34.0-46.0) % ABG Sodium 133 L (135-146) mmol/L ABG Potassium 4.9 H 4.8 H (3.4-4.5) mmol/L ABG Ionized Calcium 4.1 L 4.3 L (4.5-5.3) mg/dL ABG Glucose 200 H 172 H 129 H (75-99) mg/dL Hemoglobin 8.1 L 8.1 L 10.2 L (11.4-16.0) gm/dL Sodium (137-145) mmol/L Chloride (98-107) mmol/L Glucose (74-99) mg/dL POC Glucose (mg/dL) (75-99) mg/dL Calcium (8.4-10.2) mg/dL Magnesium (1.6-2.3) mg/dL Alkaline Phosphatase (38-126) U/L Total Protein (6.3-8.2) g/dL Albumin (3.5-5.0) g/dL Arterial Blood Potassium 4.9 H 4.8 H (3.4-4.5) mmol/L Arterial Blood Glucose 200 H 172 H 129 H (75-99) mg/dL Crossmatch 10/05/20 10/05/20 10/05/20 Range/Units 12:23 12:23 12:23 WBC (3.8-10.6) k/uL RBC 3.14 L (3.80-5.40) m/uL Hgb 9.7 L D (11.4-16.0) gm/dL Hct 29.8 L (34.0-46.0) % Plt Count 101 L (150-450) k/uL Neutrophils # (1.3-7.7) k/uL PT 12.3 H (9.0-12.0) sec INR 1.2 H (<1.2) APTT 30.3 H (22.0-30.0) sec ABG pO2 (83-108) mmHg ABG HCO3 (21-25) mmol/L ABG Total CO2 (19-24) mmol/L ABG O2 Saturation (94-97) % ABG Hematocrit (34.0-46.0) % ABG Sodium (135-146) mmol/L ABG Potassium (3.4-4.5) mmol/L ABG Ionized Calcium (4.5-5.3) mg/dL ABG Glucose (75-99) mg/dL Hemoglobin (11.4-16.0) gm/dL Sodium (137-145) mmol/L Chloride (98-107) mmol/L Glucose (74-99) mg/dL POC Glucose (mg/dL) 119 H (75-99) mg/dL Calcium (8.4-10.2) mg/dL Magnesium (1.6-2.3) mg/dL Alkaline Phosphatase (38-126) U/L Total Protein (6.3-8.2) g/dL Albumin (3.5-5.0) g/dL Arterial Blood Potassium (3.4-4.5) mmol/L Arterial Blood Glucose (75-99) mg/dL Crossmatch 10/05/20 10/05/20 10/05/20 Range/Units 12:23 12:44 12:45 WBC (3.8-10.6) k/uL RBC (3.80-5.40) m/uL Hgb (11.4-16.0) gm/dL Hct (34.0-46.0) % Plt Count (150-450) k/uL Neutrophils # (1.3-7.7) k/uL PT (9.0-12.0) sec INR (<1.2) APTT (22.0-30.0) sec ABG pO2 >400 H (83-108) mmHg ABG HCO3 26 H (21-25) mmol/L ABG Total CO2 27 H (19-24) mmol/L ABG O2 Saturation 100.0 H (94-97) % ABG Hematocrit (34.0-46.0) % ABG Sodium (135-146) mmol/L ABG Potassium (3.4-4.5) mmol/L ABG Ionized Calcium (4.5-5.3) mg/dL ABG Glucose (75-99) mg/dL Hemoglobin (11.4-16.0) gm/dL Sodium 135 L (137-145) mmol/L Chloride 108 H (98-107) mmol/L Glucose 110 H (74-99) mg/dL POC Glucose (mg/dL) 111 H (75-99) mg/dL Calcium 8.1 L (8.4-10.2) mg/dL Magnesium 2.6 H (1.6-2.3) mg/dL Alkaline Phosphatase 34 L (38-126) U/L Total Protein 4.3 L (6.3-8.2) g/dL Albumin 2.7 L (3.5-5.0) g/dL Arterial Blood Potassium (3.4-4.5) mmol/L Arterial Blood Glucose (75-99) mg/dL Crossmatch 10/05/20 10/05/20 10/05/20 Range/Units 13:58 14:54 15:00 WBC 15.9 H (3.8-10.6) k/uL RBC 3.75 L (3.80-5.40) m/uL Hgb (11.4-16.0) gm/dL Hct (34.0-46.0) % Plt Count 130 L (150-450) k/uL Neutrophils # 12.4 H (1.3-7.7) k/uL PT (9.0-12.0) sec INR (<1.2) APTT (22.0-30.0) sec ABG pO2 (83-108) mmHg ABG HCO3 (21-25) mmol/L ABG Total CO2 (19-24) mmol/L ABG O2 Saturation (94-97) % ABG Hematocrit (34.0-46.0) % ABG Sodium (135-146) mmol/L ABG Potassium (3.4-4.5) mmol/L ABG Ionized Calcium (4.5-5.3) mg/dL ABG Glucose (75-99) mg/dL Hemoglobin (11.4-16.0) gm/dL Sodium (137-145) mmol/L Chloride (98-107) mmol/L Glucose (74-99) mg/dL POC Glucose (mg/dL) 122 H 134 H (75-99) mg/dL Calcium (8.4-10.2) mg/dL Magnesium (1.6-2.3) mg/dL Alkaline Phosphatase (38-126) U/L Total Protein (6.3-8.2) g/dL Albumin (3.5-5.0) g/dL Arterial Blood Potassium (3.4-4.5) mmol/L Arterial Blood Glucose (75-99) mg/dL Crossmatch Assessment and Plan Assessment: 1 status post aortic valve placement: Secondary to severe aortic regurgitation with mild impair left ventricular function, patient did well so far post surgery was extubated successfully seen pulmonary continue current management patient is very stable hemodynamically. 2 mild impaired left ventricular function: Most likely from the effect of the severe aortic regurgitation, continue medical management post surgery patient was still on beta el along with Renzo and possibly diuretics. 3 chronic anemia: Hemoglobin stable currently patient was on iron supplement as an outpatient which will be continue. 4 hyperglycemia: Continue Accu-Chek with sliding scales coverage to to keep her blood sugar between 120 and 150. 5 chronic depression: Has been on Wellbutrin which will be resumed. 6 hyperlipidemia: On atorvastatin 40 mg a day resume medication. 7 mild arrhythmia mostly PVCs was doing very well on beta el. 8 mild reactive airway: Continue DuoNeb for now continue supportive oxygen. 9 history of coagulopathy: Patient is currently on heparin patient will have early mobilization along with knee-high NATE hose continue heparin subcutaneous whether to go on oral anticoagulation or not this to be determined. 10 GI prophylaxis: Remain on pantoprazole IV and metoclopramide IV. CODE STATUS: Full code. Dr. Painting thank you very much for the consult and allowing me to part spit the care of few patient for can be any further help to please let me know thank you.
[2020-10-06 09:09] LABS: Glucose,Whole Blood 119 mg/dL (75-99)
--- NOTE | 2020-10-06 09:11 | P.PN ---
Subjective Progress Note Date: 10/06/20 Principal diagnosis: Post aortic valve placement, history of coagulopathy, chronic anemia. 60-year-old female was transferred recently from [place] to [place] to take care of her mom she is new to our office was seen and evaluated for recurrent episode of shortness of breath and mild chest pain along with anemia found to have very loud murmur. Patient ended up seeing cardiology transesophageal echocardiogram along with heart cath were done and patient was diagnosed with se chaka aortic regurgitation. Patient was referred to cardiothoracic service and was recommended to go for elective aortic valve placement. Surgery was done today successfully with no major complication patient was on the ventilator for sure. If time was taking off still have chest tube still have [place]-Ver[place]ica catheter along with another central line. Hemodynamically very stable and patient is not in any pain. 10/06: Patient is doing very well off the vent very stable hemodynamically she is not in any pain, still using DuoNeb for reactive airway, blood sugar was mildly elevated and being cover with sliding scale. Patient is on heparin subcutaneous currently no longer term anticoagulation decided this point. Objective - Vital Signs Vital signs: Vital Signs Temp 99.1 F 10/06/20 04:00 Pulse 74 10/06/20 08:30 Resp 7 L 10/06/20 08:30 BP 129/51 10/06/20 06:15 Pulse Ox 97 10/06/20 08:30 Intake & Output 10/05/20 10/06/20 10/06/20 18:59 06:59 18:59 Intake Total 4715.735 8821.774 423.2 Output Total 2970 767 150 Balance -0108.942 9897.774 273.2 Weight 98.8 kg Intake: IV 914 938 408 ACETAMINOPHEN IV (For NPO 100 100 ) 1,000 mg In Empty Bag 1 bag @ 400 mls/hr IVPB Q6H [facility] Rx#:[id number] CO/CI 150 180 40 Lactated Ringers 1,000 ml 350 550 100 @ 20 mls/hr IV .Q24H [facility] Rx#:[id number] Pressure Bags 63 108 18 Vancomycin 1,500 mg In 250 Sodium Chloride 0.9% 250 ml @ 125 mls/hr IVPB Q12H [facility] Rx#:[id number] Intake, IV Titration 90.886 368.774 15.2 Amount Clevidipine Butyrate 25 60.800 329.5 mg In Empty Bag 1 bag @ 1 MG/HR 2 mls/hr IV .Q24H [facility] Rx#:[id number] Dexmedetomidine/0.9% NaCl 3.787 (Pmx) 400 mcg In Empty Bag 1 bag @ Titrate IV . Q0M [facility] Rx#:[id number] Insulin Regular 100 unit 5.967 39.274 15.2 In Sodium Chloride 0.9% 100 ml @ Per Protocol IV .Q0M [facility] Rx#:[id number] propofoL 1,000 mg In 20.332 Empty Bag 1 bag @ Titrate IV .Q0M [facility] Rx#: [id number] Oral 540 Output: Chest Tube Drainage 350 260 60 Mediastinal 350 260 60 Urine 1120 507 90 Estimated Blood Loss 1500 Other: Voiding Method Indwelling Catheter Indwelling Catheter ABP, PAP, CO, CI - Last Documented Arterial Blood Pressure 129/46 Pulmonary Artery Pressure 26/9 Cardiac Output 6.3 Cardiac Index 3.0 - Exam Review of Systems CONSTITUTIONAL: Well-developed no acute respiratory distress. EYES: No icterus sclerae, no conjunctivitis. EARS, NOSE, MOUTH, THROAT, and FACE: No sore throat, lymphadenopathy, carotid bruits or deformity. RESPIRATORY: Mild shortness of breath chest pain with deep inspiration. CARDIOVASCULAR: Positive PVCs with no angina. GASTROINTESTINAL: No Abd pain, Nausea or vomiting, no Diarrhea or constipation, No GI Bleed, no distention or masses. GENITOURINARY: Negative for Hematuria or UTI, no kidney stones. INTEGUMENT/BREAST: Negative for any muscular injury with mild osteoarthritis.. HEMATOLOGIC/LYMPHATIC: Negative for bleed or purpura. MUSCULOSKELTAL: Negative for Myalgia or arthralgia. NEURLOGICAL: No LOC, Sz or syncope, blurred vision dizziness or abnormality.. BEHAVIORAL/PSYCH: Negative. ENDOCRINE: Negative. Physical Exam Vitals: General Appearance: Alert, cooperative, no distress, appears stated age. Neck HEENT: Supple, no lymphadenopathy, no thyroid enlargement, no carotid bruits. [place]-Ver[place]ica catheter on the right side Lungs: Decreased breath sounds bilaterally especially in the left side and fine rhonchi no crackles or wheezes. Chest Wall: Slight pain and discomfort in the chest wall area from her surgical site with no other deformity still have chest tube. Heart: Regular rate and rhythm, S1, S2 normal, no murmur, rub or gallop. Back: Symmetric, no curvature, ROM normal, no CVA tenderness. Abdomen: Soft, non-tender, bowel sounds active all four quadrants, no masses, no organomegaly. Extremities: Extremities normal, atraumatic, no cyanosis or edema. Pulses: 2+ and symmetric. Skin: Skin color, texture, tugor normal, no rashes or lesions. Neurologic: Alert oriented x3 cranial nerves II through XII intact, no motor deficit, no abnormal balance or gait. - Labs CBC & Chem 7: 10/06/20 04:08 10/06/20 04:08 Labs: Abnormal Lab Results - Last 24 Hours (Table) 09/28/20 10/05/20 10/05/20 Range/Units 08:47 08:44 09:52 WBC (3.8-10.6) k/uL RBC (3.80-5.40) m/uL Hgb (11.4-16.0) gm/dL Hct (34.0-46.0) % Plt Count (150-450) k/uL Neutrophils # (1.3-7.7) k/uL Lymphocytes # (1.0-4.8) k/uL PT (9.0-12.0) sec INR (<1.2) APTT (22.0-30.0) sec ABG pH (7.35-7.45) ABG pCO2 (35-45) mmHg ABG pO2 408 H 239 H (83-108) mmHg ABG HCO3 27 H (21-25) mmol/L ABG Total CO2 26 H 28 H (19-24) mmol/L ABG O2 Saturation 99.9 H 99.6 H (94-97) % ABG Hematocrit (34.0-46.0) % ABG Sodium (135-146) mmol/L ABG Potassium (3.4-4.5) mmol/L ABG Ionized Calcium (4.5-5.3) mg/dL ABG Glucose 100 H (75-99) mg/dL Hemoglobin 11.1 L (11.4-16.0) gm/dL Sodium (137-145) mmol/L Chloride (98-107) mmol/L Glucose (74-99) mg/dL POC Glucose (mg/dL) (75-99) mg/dL Calcium (8.4-10.2) mg/dL Magnesium (1.6-2.3) mg/dL AST (14-36) U/L Alkaline Phosphatase (38-126) U/L Total Protein (6.3-8.2) g/dL Albumin (3.5-5.0) g/dL Arterial Blood Potassium (3.4-4.5) mmol/L Arterial Blood Glucose 100 H (75-99) mg/dL Crossmatch See Detail 10/05/20 10/05/20 10/05/20 Range/Units 10:14 10:46 11:49 WBC (3.8-10.6) k/uL RBC (3.80-5.40) m/uL Hgb (11.4-16.0) gm/dL Hct (34.0-46.0) % Plt Count (150-450) k/uL Neutrophils # (1.3-7.7) k/uL Lymphocytes # (1.0-4.8) k/uL PT (9.0-12.0) sec INR (<1.2) APTT (22.0-30.0) sec ABG pH (7.35-7.45) ABG pCO2 (35-45) mmHg ABG pO2 >420 H 411 H 183 H (83-108) mmHg ABG HCO3 26 H (21-25) mmol/L ABG Total CO2 25 H 26 H 27 H (19-24) mmol/L ABG O2 Saturation 100.0 H 100.0 H 99.4 H (94-97) % ABG Hematocrit 25 L 25 L 31 L (34.0-46.0) % ABG Sodium 133 L (135-146) mmol/L ABG Potassium 4.9 H 4.8 H (3.4-4.5) mmol/L ABG Ionized Calcium 4.1 L 4.3 L (4.5-5.3) mg/dL ABG Glucose 200 H 172 H 129 H (75-99) mg/dL Hemoglobin 8.1 L 8.1 L 10.2 L (11.4-16.0) gm/dL Sodium (137-145) mmol/L Chloride (98-107) mmol/L Glucose (74-99) mg/dL POC Glucose (mg/dL) (75-99) mg/dL Calcium (8.4-10.2) mg/dL Magnesium (1.6-2.3) mg/dL AST (14-36) U/L Alkaline Phosphatase (38-126) U/L Total Protein (6.3-8.2) g/dL Albumin (3.5-5.0) g/dL Arterial Blood Potassium 4.9 H 4.8 H (3.4-4.5) mmol/L Arterial Blood Glucose 200 H 172 H 129 H (75-99) mg/dL Crossmatch 10/05/20 10/05/20 10/05/20 Range/Units 12:23 12:23 12:23 WBC (3.8-10.6) k/uL RBC 3.14 L (3.80-5.40) m/uL Hgb 9.7 L D (11.4-16.0) gm/dL Hct 29.8 L (34.0-46.0) % Plt Count 101 L (150-450) k/uL Neutrophils # (1.3-7.7) k/uL Lymphocytes # (1.0-4.8) k/uL PT 12.3 H (9.0-12.0) sec INR 1.2 H (<1.2) APTT 30.3 H (22.0-30.0) sec ABG pH (7.35-7.45) ABG pCO2 (35-45) mmHg ABG pO2 (83-108) mmHg ABG HCO3 (21-25) mmol/L ABG Total CO2 (19-24) mmol/L ABG O2 Saturation (94-97) % ABG Hematocrit (34.0-46.0) % ABG Sodium (135-146) mmol/L ABG Potassium (3.4-4.5) mmol/L ABG Ionized Calcium (4.5-5.3) mg/dL ABG Glucose (75-99) mg/dL Hemoglobin (11.4-16.0) gm/dL Sodium (137-145) mmol/L Chloride (98-107) mmol/L Glucose (74-99) mg/dL POC Glucose (mg/dL) 119 H (75-99) mg/dL Calcium (8.4-10.2) mg/dL Magnesium (1.6-2.3) mg/dL AST (14-36) U/L Alkaline Phosphatase (38-126) U/L Total Protein (6.3-8.2) g/dL Albumin (3.5-5.0) g/dL Arterial Blood Potassium (3.4-4.5) mmol/L Arterial Blood Glucose (75-99) mg/dL Crossmatch 10/05/20 10/05/20 10/05/20 Range/Units 12:23 12:44 12:45 WBC (3.8-10.6) k/uL RBC (3.80-5.40) m/uL Hgb (11.4-16.0) gm/dL Hct (34.0-46.0) % Plt Count (150-450) k/uL Neutrophils # (1.3-7.7) k/uL Lymphocytes # (1.0-4.8) k/uL PT (9.0-12.0) sec INR (<1.2) APTT (22.0-30.0) sec ABG pH (7.35-7.45) ABG pCO2 (35-45) mmHg ABG pO2 >400 H (83-108) mmHg ABG HCO3 26 H (21-25) mmol/L ABG Total CO2 27 H (19-24) mmol/L ABG O2 Saturation 100.0 H (94-97) % ABG Hematocrit (34.0-46.0) % ABG Sodium (135-146) mmol/L ABG Potassium (3.4-4.5) mmol/L ABG Ionized Calcium (4.5-5.3) mg/dL ABG Glucose (75-99) mg/dL Hemoglobin (11.4-16.0) gm/dL Sodium 135 L (137-145) mmol/L Chloride 108 H (98-107) mmol/L Glucose 110 H (74-99) mg/dL POC Glucose (mg/dL) 111 H (75-99) mg/dL Calcium 8.1 L (8.4-10.2) mg/dL Magnesium 2.6 H (1.6-2.3) mg/dL AST (14-36) U/L Alkaline Phosphatase 34 L (38-126) U/L Total Protein 4.3 L (6.3-8.2) g/dL Albumin 2.7 L (3.5-5.0) g/dL Arterial Blood Potassium (3.4-4.5) mmol/L Arterial Blood Glucose (75-99) mg/dL Crossmatch 10/05/20 10/05/20 10/05/20 Range/Units 13:58 14:54 15:00 WBC 15.9 H (3.8-10.6) k/uL RBC 3.75 L (3.80-5.40) m/uL Hgb (11.4-16.0) gm/dL Hct (34.0-46.0) % Plt Count 130 L (150-450) k/uL Neutrophils # 12.4 H (1.3-7.7) k/uL Lymphocytes # (1.0-4.8) k/uL PT (9.0-12.0) sec INR (<1.2) APTT (22.0-30.0) sec ABG pH (7.35-7.45) ABG pCO2 (35-45) mmHg ABG pO2 (83-108) mmHg ABG HCO3 (21-25) mmol/L ABG Total CO2 (19-24) mmol/L ABG O2 Saturation (94-97) % ABG Hematocrit (34.0-46.0) % ABG Sodium (135-146) mmol/L ABG Potassium (3.4-4.5) mmol/L ABG Ionized Calcium (4.5-5.3) mg/dL ABG Glucose (75-99) mg/dL Hemoglobin (11.4-16.0) gm/dL Sodium (137-145) mmol/L Chloride (98-107) mmol/L Glucose (74-99) mg/dL POC Glucose (mg/dL) 122 H 134 H (75-99) mg/dL Calcium (8.4-10.2) mg/dL Magnesium (1.6-2.3) mg/dL AST (14-36) U/L Alkaline Phosphatase (38-126) U/L Total Protein (6.3-8.2) g/dL Albumin (3.5-5.0) g/dL Arterial Blood Potassium (3.4-4.5) mmol/L Arterial Blood Glucose (75-99) mg/dL Crossmatch 10/05/20 10/05/20 10/05/20 Range/Units 15:59 16:47 16:51 WBC (3.8-10.6) k/uL RBC (3.80-5.40) m/uL Hgb (11.4-16.0) gm/dL Hct (34.0-46.0) % Plt Count (150-450) k/uL Neutrophils # (1.3-7.7) k/uL Lymphocytes # (1.0-4.8) k/uL PT (9.0-12.0) sec INR (<1.2) APTT (22.0-30.0) sec ABG pH 7.28 L (7.35-7.45) ABG pCO2 55 H (35-45) mmHg ABG pO2 168 H (83-108) mmHg ABG HCO3 26 H (21-25) mmol/L ABG Total CO2 27 H (19-24) mmol/L ABG O2 Saturation 99.7 H (94-97) % ABG Hematocrit (34.0-46.0) % ABG Sodium (135-146) mmol/L ABG Potassium (3.4-4.5) mmol/L ABG Ionized Calcium (4.5-5.3) mg/dL ABG Glucose (75-99) mg/dL Hemoglobin (11.4-16.0) gm/dL Sodium (137-145) mmol/L Chloride (98-107) mmol/L Glucose (74-99) mg/dL POC Glucose (mg/dL) 143 H 143 H (75-99) mg/dL Calcium (8.4-10.2) mg/dL Magnesium (1.6-2.3) mg/dL AST (14-36) U/L Alkaline Phosphatase (38-126) U/L Total Protein (6.3-8.2) g/dL Albumin (3.5-5.0) g/dL Arterial Blood Potassium (3.4-4.5) mmol/L Arterial Blood Glucose (75-99) mg/dL Crossmatch 10/05/20 10/05/20 10/05/20 Range/Units 17:59 18:02 18:42 WBC 18.1 H (3.8-10.6) k/uL RBC (3.80-5.40) m/uL Hgb (11.4-16.0) gm/dL Hct (34.0-46.0) % Plt Count 137 L (150-450) k/uL Neutrophils # 16.4 H (1.3-7.7) k/uL Lymphocytes # 0.9 L (1.0-4.8) k/uL PT (9.0-12.0) sec INR (<1.2) APTT (22.0-30.0) sec ABG pH 7.30 L (7.35-7.45) ABG pCO2 51 H (35-45) mmHg ABG pO2 165 H (83-108) mmHg ABG HCO3 (21-25) mmol/L ABG Total CO2 26 H (19-24) mmol/L ABG O2 Saturation 99.6 H (94-97) % ABG Hematocrit (34.0-46.0) % ABG Sodium (135-146) mmol/L ABG Potassium (3.4-4.5) mmol/L ABG Ionized Calcium (4.5-5.3) mg/dL ABG Glucose (75-99) mg/dL Hemoglobin (11.4-16.0) gm/dL Sodium (137-145) mmol/L Chloride (98-107) mmol/L Glucose (74-99) mg/dL POC Glucose (mg/dL) 141 H (75-99) mg/dL Calcium (8.4-10.2) mg/dL Magnesium (1.6-2.3) mg/dL AST (14-36) U/L Alkaline Phosphatase (38-126) U/L Total Protein (6.3-8.2) g/dL Albumin (3.5-5.0) g/dL Arterial Blood Potassium (3.4-4.5) mmol/L Arterial Blood Glucose (75-99) mg/dL Crossmatch 10/05/20 10/05/20 10/05/20 Range/Units 18:42 18:58 20:10 WBC (3.8-10.6) k/uL RBC (3.80-5.40) m/uL Hgb (11.4-16.0) gm/dL Hct (34.0-46.0) % Plt Count (150-450) k/uL Neutrophils # (1.3-7.7) k/uL Lymphocytes # (1.0-4.8) k/uL PT (9.0-12.0) sec INR (<1.2) APTT (22.0-30.0) sec ABG pH (7.35-7.45) ABG pCO2 (35-45) mmHg ABG pO2 (83-108) mmHg ABG HCO3 (21-25) mmol/L ABG Total CO2 (19-24) mmol/L ABG O2 Saturation (94-97) % ABG Hematocrit (34.0-46.0) % ABG Sodium (135-146) mmol/L ABG Potassium (3.4-4.5) mmol/L ABG Ionized Calcium (4.5-5.3) mg/dL ABG Glucose (75-99) mg/dL Hemoglobin (11.4-16.0) gm/dL Sodium 136 L (137-145) mmol/L Chloride (98-107) mmol/L Glucose 141 H (74-99) mg/dL POC Glucose (mg/dL) 139 H 150 H (75-99) mg/dL Calcium (8.4-10.2) mg/dL Magnesium (1.6-2.3) mg/dL AST 42 H (14-36) U/L Alkaline Phosphatase (38-126) U/L Total Protein 5.7 L (6.3-8.2) g/dL Albumin (3.5-5.0) g/dL Arterial Blood Potassium (3.4-4.5) mmol/L Arterial Blood Glucose (75-99) mg/dL Crossmatch 10/05/20 10/05/20 10/06/20 Range/Units 21:32 23:14 00:51 WBC (3.8-10.6) k/uL RBC (3.80-5.40) m/uL Hgb (11.4-16.0) gm/dL Hct (34.0-46.0) % Plt Count (150-450) k/uL Neutrophils # (1.3-7.7) k/uL Lymphocytes # (1.0-4.8) k/uL PT (9.0-12.0) sec INR (<1.2) APTT (22.0-30.0) sec ABG pH (7.35-7.45) ABG pCO2 (35-45) mmHg ABG pO2 (83-108) mmHg ABG HCO3 (21-25) mmol/L ABG Total CO2 (19-24) mmol/L ABG O2 Saturation (94-97) % ABG Hematocrit (34.0-46.0) % ABG Sodium (135-146) mmol/L ABG Potassium (3.4-4.5) mmol/L ABG Ionized Calcium (4.5-5.3) mg/dL ABG Glucose (75-99) mg/dL Hemoglobin (11.4-16.0) gm/dL Sodium (137-145) mmol/L Chloride (98-107) mmol/L Glucose (74-99) mg/dL POC Glucose (mg/dL) 153 H 129 H 114 H (75-99) mg/dL Calcium (8.4-10.2) mg/dL Magnesium (1.6-2.3) mg/dL AST (14-36) U/L Alkaline Phosphatase (38-126) U/L Total Protein (6.3-8.2) g/dL Albumin (3.5-5.0) g/dL Arterial Blood Potassium (3.4-4.5) mmol/L Arterial Blood Glucose (75-99) mg/dL Crossmatch 10/06/20 10/06/20 10/06/20 Range/Units 02:24 04:08 04:08 WBC 19.3 H (3.8-10.6) k/uL RBC 3.78 L (3.80-5.40) m/uL Hgb (11.4-16.0) gm/dL Hct (34.0-46.0) % Plt Count 121 L (150-450) k/uL Neutrophils # 17.2 H (1.3-7.7) k/uL Lymphocytes # 0.9 L (1.0-4.8) k/uL PT (9.0-12.0) sec INR (<1.2) APTT (22.0-30.0) sec ABG pH (7.35-7.45) ABG pCO2 (35-45) mmHg ABG pO2 (83-108) mmHg ABG HCO3 (21-25) mmol/L ABG Total CO2 (19-24) mmol/L ABG O2 Saturation (94-97) % ABG Hematocrit (34.0-46.0) % ABG Sodium (135-146) mmol/L ABG Potassium (3.4-4.5) mmol/L ABG Ionized Calcium (4.5-5.3) mg/dL ABG Glucose (75-99) mg/dL Hemoglobin (11.4-16.0) gm/dL Sodium 133 L (137-145) mmol/L Chloride (98-107) mmol/L Glucose 136 H (74-99) mg/dL POC Glucose (mg/dL) 168 H (75-99) mg/dL Calcium (8.4-10.2) mg/dL Magnesium (1.6-2.3) mg/dL AST 42 H (14-36) U/L Alkaline Phosphatase (38-126) U/L Total Protein 5.3 L (6.3-8.2) g/dL Albumin (3.5-5.0) g/dL Arterial Blood Potassium (3.4-4.5) mmol/L Arterial Blood Glucose (75-99) mg/dL Crossmatch 10/06/20 10/06/20 Range/Units 04:09 06:22 WBC (3.8-10.6) k/uL RBC (3.80-5.40) m/uL Hgb (11.4-16.0) gm/dL Hct (34.0-46.0) % Plt Count (150-450) k/uL Neutrophils # (1.3-7.7) k/uL Lymphocytes # (1.0-4.8) k/uL PT (9.0-12.0) sec INR (<1.2) APTT (22.0-30.0) sec ABG pH (7.35-7.45) ABG pCO2 (35-45) mmHg ABG pO2 (83-108) mmHg ABG HCO3 (21-25) mmol/L ABG Total CO2 (19-24) mmol/L ABG O2 Saturation (94-97) % ABG Hematocrit (34.0-46.0) % ABG Sodium (135-146) mmol/L ABG Potassium (3.4-4.5) mmol/L ABG Ionized Calcium (4.5-5.3) mg/dL ABG Glucose (75-99) mg/dL Hemoglobin (11.4-16.0) gm/dL Sodium (137-145) mmol/L Chloride (98-107) mmol/L Glucose (74-99) mg/dL POC Glucose (mg/dL) 136 H 133 H (75-99) mg/dL Calcium (8.4-10.2) mg/dL Magnesium (1.6-2.3) mg/dL AST (14-36) U/L Alkaline Phosphatase (38-126) U/L Total Protein (6.3-8.2) g/dL Albumin (3.5-5.0) g/dL Arterial Blood Potassium (3.4-4.5) mmol/L Arterial Blood Glucose (75-99) mg/dL Crossmatch Assessment and Plan Assessment: 1 status post aortic valve placement: Secondary to severe aortic regurgitation with mild impair left ventricular function, patient did well so far post surgery was extubated successfully seen pulmonary continue current management patient is very stable hemodynamically. 2 mild impaired left ventricular function: Most likely from the effect of the severe aortic regurgitation, continue medical management post surgery patient was still on beta el along with Renzo and possibly diuretics. 3 chronic anemia: Hemoglobin stable currently patient was on iron supplement as an outpatient which will be continue. 4 hyperglycemia: Continue Accu-Chek with sliding scales coverage to to keep her blood sugar between 120 and 150. 5 chronic depression: Has been on Wellbutrin which will be resumed. 6 hyperlipidemia: On atorvastatin 40 mg a day resume medication. 7 mild arrhythmia mostly PVCs was doing very well on beta el. 8 mild reactive airway: Continue DuoNeb for now continue supportive oxygen. 9 history of coagulopathy: Patient is currently on heparin patient will have early mobilization along with knee-high NATE hose continue heparin subcutaneous whether to go on oral anticoagulation or not this to be determined.
--- NOTE | 2020-10-06 09:46 | XR ---
EXAMINATION TYPE: XR chest 1V portable DATE OF EXAM: 10/06/2020 CLINICAL HISTORY: Post Operative Cardiac Surgery. TECHNIQUE: Portable frontal view of the chest. COMPARISON: 10/05/2020 chest radiograph FINDINGS: Sternotomy wires, left atrial appendage clip, right internal jugular [place]-Verónica catheter, r ight-sided chest tube, and mediastinal drain redemonstrated. Interval removal of endotracheal and ent aj tubes. The cardiomediastinal silhouette is within normal limits for size. Pulmonary vasculature is normal. Left basilar atelectasis. No pleural effusion or pneumothorax. IMPRESSION: 1. Interval removal of endotracheal and enteric tubes. 2. Minimal left basilar atelectasis.
[2020-10-06 10:26] LABS: Glucose,Whole Blood 117 mg/dL (75-99)
[2020-10-06 10:31] VITALS: BMI 30.8
[2020-10-06 11:43] LABS: Glucose,Whole Blood 124 mg/dL (75-99)
--- NOTE | 2020-10-06 13:24 | P.PN ---
Subjective Progress Note Date: 10/06/20 Principal diagnosis: Postoperative day #1, aortic valve replacement with bioprosthetic valve This is a 60-year-old female with known history of severe aortic regurgitation, recently diagnosed by transesophageal echocardiogram and cardiac catheterization. Patient underwent today an elective aortic valve replacement, and she was admitted to the ICU on mechanical ventilation. I was asked to see her on consultation. Presently the patient is on assist control mode of mechanical ventilation rate of 12 tidal volume is 400 FiO2 is 50% and PEEP of 5. ABG showed a pO2 of more than 400 pCO2 of 43 pH of 7.38. Hence the patient was changed to FiO2 of 50%. Patient is now on propofol drip at 50 mcg/kg/m, she is also on clevidipine at 6 mg/h, IV fluid at 50 mL per hour. Patient is sedated, and hemodynamically stable, in no distress. Postoperative chest x-ray showed satisfactory postoperative findings, basically unremarkable Patient was reevaluated today on 10/06/20, patient was successfully extubated yesterday at 18:11. Patient is doing well today, sitting in her recliner, in no distress, has some vague postsurgical incisional pain, she is not requiring any pressors or any inotropes. However she is on clevidipine for blood pressure control. Continues to have multiple lines including a right IJ [place]/cor this, continues to have mediastinal and right pleural chest tube and the right radial arterial line. These are being addressed by thoracic surgery on the case. Chest x-ray is basically unremarkable. Labs are relatively normal today. Objective - Vital Signs Vital signs: Vital Signs Temp 99.1 F 10/06/20 04:00 Pulse 68 10/06/20 11:45 Resp 7 L 10/06/20 11:45 BP 127/63 10/06/20 11:45 Pulse Ox 100 10/06/20 11:45 Intake & Output 10/05/20 10/06/20 10/06/20 18:59 06:59 18:59 Intake Total 0953.173 1122.774 568.266 Output Total 2970 767 300 Balance -4380.045 4302.774 268.266 Weight 98.8 kg 98.8 kg Intake: IV 914 938 526 ACETAMINOPHEN IV (For NPO 100 100 ) 1,000 mg In Empty Bag 1 bag @ 400 mls/hr IVPB Q6H [facility] Rx#:[id number] CO/CI 150 180 40 Lactated Ringers 1,000 ml 350 550 200 @ 20 mls/hr IV .Q24H [facility] Rx#:[id number] Pressure Bags 63 108 36 Vancomycin 1,500 mg In 250 Sodium Chloride 0.9% 250 ml @ 125 mls/hr IVPB Q12H [facility] Rx#:[id number] Intake, IV Titration 90.886 368.774 42.266 Amount Clevidipine Butyrate 25 60.800 329.5 27.066 mg In Empty Bag 1 bag @ 1 MG/HR 2 mls/hr IV .Q24H [facility] Rx#:[id number] Dexmedetomidine/0.9% NaCl 3.787 (Pmx) 400 mcg In Empty Bag 1 bag @ Titrate IV . Q0M [facility] Rx#:[id number] Insulin Regular 100 unit 5.967 39.274 15.2 In Sodium Chloride 0.9% 100 ml @ Per Protocol IV .Q0M [facility] Rx#:[id number] propofoL 1,000 mg In 20.332 Empty Bag 1 bag @ Titrate IV .Q0M [facility] Rx#: [id number] Oral 540 Output: Chest Tube Drainage 350 260 100 Mediastinal 350 260 100 Urine 1120 507 200 Estimated Blood Loss 1500 Other: Voiding Method Indwelling Catheter Indwelling Catheter Indwelling Catheter ABP, PAP, CO, CI - Last Documented Arterial Blood Pressure 151/51 Pulmonary Artery Pressure 24/5 Cardiac Output 6.3 Cardiac Index 3 - Exam Physical Exam: Revealed a 60-year-old female on nasal cannula, sitting at a bedside recliner. In no distress, pleasant Head: Atraumatic, normocephalic, HEENT:[Neck is supple.] [No neck masses.] [No thyromegaly.] [No JVD.] Chest: [Symmetrical chest expansion, crackles at the bases.Mediastinal/right pleural chest tube present and connected to continuous wall suction, 160 mL of thin serosanguineous drainage overnight, 650 mL since surgery, no air leak present. Cardiac Exam: [Normal S1 and S2, no S3 gallop, positive pericardial rub.Ventricular epicardial pacemaker wires present, connected to generator, VVI mode with backup rate 50 bpm. Palpable peripheral pulses bilaterally. No edema present. No calf pain or tenderness noted. Heart hugger in place with patient demonstrating appropriate use. Antiembolism stockings, SCDs present. Right internal jugular [place], right radial arterial line present. Last CO/CI 6.7/3.2 with PA pressures 29/9, CVP 7, currently on Cleviprex for blood pressure control but no other IV infusions. Abdomen: [Soft, nontender, no megaly, no rebound, no guarding, normal bowel sounds.] Extremities: [No clubbing, no edema, no cyanosis.] Neurological Exam: Alert and oriented 3, no gross focal deficits. Psychiatric: Normal mood affect and normal mental status examination. Skin: No rashes. - Labs CBC & Chem 7: 10/06/20 04:08 10/06/20 04:08 Labs: Abnormal Lab Results - Last 24 Hours (Table) 09/28/20 10/05/20 10/05/20 Range/Units 08:47 13:58 14:54 WBC (3.8-10.6) k/uL RBC (3.80-5.40) m/uL Plt Count (150-450) k/uL Neutrophils # (1.3-7.7) k/uL Lymphocytes # (1.0-4.8) k/uL ABG pH (7.35-7.45) ABG pCO2 (35-45) mmHg ABG pO2 (83-108) mmHg ABG HCO3 (21-25) mmol/L ABG Total CO2 (19-24) mmol/L ABG O2 Saturation (94-97) % Sodium (137-145) mmol/L Glucose (74-99) mg/dL POC Glucose (mg/dL) 122 H 134 H (75-99) mg/dL AST (14-36) U/L Total Protein (6.3-8.2) g/dL Crossmatch See Detail 10/05/20 10/05/20 10/05/20 Range/Units 15:00 15:59 16:47 WBC 15.9 H (3.8-10.6) k/uL RBC 3.75 L (3.80-5.40) m/uL Plt Count 130 L (150-450) k/uL Neutrophils # 12.4 H (1.3-7.7) k/uL Lymphocytes # (1.0-4.8) k/uL ABG pH 7.28 L (7.35-7.45) ABG pCO2 55 H (35-45) mmHg ABG pO2 168 H (83-108) mmHg ABG HCO3 26 H (21-25) mmol/L ABG Total CO2 27 H (19-24) mmol/L ABG O2 Saturation 99.7 H (94-97) % Sodium (137-145) mmol/L Glucose (74-99) mg/dL POC Glucose (mg/dL) 143 H (75-99) mg/dL AST (14-36) U/L Total Protein (6.3-8.2) g/dL Crossmatch 10/05/20 10/05/20 10/05/20 Range/Units 16:51 17:59 18:02 WBC (3.8-10.6) k/uL RBC (3.80-5.40) m/uL Plt Count (150-450) k/uL Neutrophils # (1.3-7.7) k/uL Lymphocytes # (1.0-4.8) k/uL ABG pH 7.30 L (7.35-7.45) ABG pCO2 51 H (35-45) mmHg ABG pO2 165 H (83-108) mmHg ABG HCO3 (21-25) mmol/L ABG Total CO2 26 H (19-24) mmol/L ABG O2 Saturation 99.6 H (94-97) % Sodium (137-145) mmol/L Glucose (74-99) mg/dL POC Glucose (mg/dL) 143 H 141 H (75-99) mg/dL AST (14-36) U/L Total Protein (6.3-8.2) g/dL Crossmatch 10/05/20 10/05/20 10/05/20 Range/Units 18:42 18:42 18:58 WBC 18.1 H (3.8-10.6) k/uL RBC (3.80-5.40) m/uL Plt Count 137 L (150-450) k/uL Neutrophils # 16.4 H (1.3-7.7) k/uL Lymphocytes # 0.9 L (1.0-4.8) k/uL ABG pH (7.35-7.45) ABG pCO2 (35-45) mmHg ABG pO2 (83-108) mmHg ABG HCO3 (21-25) mmol/L ABG Total CO2 (19-24) mmol/L ABG O2 Saturation (94-97) % Sodium 136 L (137-145) mmol/L Glucose 141 H (74-99) mg/dL POC Glucose (mg/dL) 139 H (75-99) mg/dL AST 42 H (14-36) U/L Total Protein 5.7 L (6.3-8.2) g/dL Crossmatch 10/05/20 10/05/20 10/05/20 Range/Units 20:10 21:32 23:14 WBC (3.8-10.6) k/uL RBC (3.80-5.40) m/uL Plt Count (150-450) k/uL Neutrophils # (1.3-7.7) k/uL Lymphocytes # (1.0-4.8) k/uL ABG pH (7.35-7.45) ABG pCO2 (35-45) mmHg ABG pO2 (83-108) mmHg ABG HCO3 (21-25) mmol/L ABG Total CO2 (19-24) mmol/L ABG O2 Saturation (94-97) % Sodium (137-145) mmol/L Glucose (74-99) mg/dL POC Glucose (mg/dL) 150 H 153 H 129 H (75-99) mg/dL AST (14-36) U/L Total Protein (6.3-8.2) g/dL Crossmatch 10/06/20 10/06/20 10/06/20 Range/Units 00:51 02:24 04:08 WBC 19.3 H (3.8-10.6) k/uL RBC 3.78 L (3.80-5.40) m/uL Plt Count 121 L (150-450) k/uL Neutrophils # 17.2 H (1.3-7.7) k/uL Lymphocytes # 0.9 L (1.0-4.8) k/uL ABG pH (7.35-7.45) ABG pCO2 (35-45) mmHg ABG pO2 (83-108) mmHg ABG HCO3 (21-25) mmol/L ABG Total CO2 (19-24) mmol/L ABG O2 Saturation (94-97) % Sodium (137-145) mmol/L Glucose (74-99) mg/dL POC Glucose (mg/dL) 114 H 168 H (75-99) mg/dL AST (14-36) U/L Total Protein (6.3-8.2) g/dL Crossmatch 10/06/20 10/06/20 10/06/20 Range/Units 04:08 04:09 06:22 WBC (3.8-10.6) k/uL RBC (3.80-5.40) m/uL Plt Count (150-450) k/uL Neutrophils # (1.3-7.7) k/uL Lymphocytes # (1.0-4.8) k/uL ABG pH (7.35-7.45) ABG pCO2 (35-45) mmHg ABG pO2 (83-108) mmHg ABG HCO3 (21-25) mmol/L ABG Total CO2 (19-24) mmol/L ABG O2 Saturation (94-97) % Sodium 133 L (137-145) mmol/L Glucose 136 H (74-99) mg/dL POC Glucose (mg/dL) 136 H 133 H (75-99) mg/dL AST 42 H (14-36) U/L Total Protein 5.3 L (6.3-8.2) g/dL Crossmatch 10/06/20 10/06/20 10/06/20 Range/Units 09:08 10:07 11:42 WBC (3.8-10.6) k/uL RBC (3.80-5.40) m/uL Plt Count (150-450) k/uL Neutrophils # (1.3-7.7) k/uL Lymphocytes # (1.0-4.8) k/uL ABG pH (7.35-7.45) ABG pCO2 (35-45) mmHg ABG pO2 (83-108) mmHg ABG HCO3 (21-25) mmol/L ABG Total CO2 (19-24) mmol/L ABG O2 Saturation (94-97) % Sodium (137-145) mmol/L Glucose (74-99) mg/dL POC Glucose (mg/dL) 119 H 117 H 124 H (75-99) mg/dL AST (14-36) U/L Total Protein (6.3-8.2) g/dL Crossmatch Assessment and Plan Assessment: Impression: Status post aortic valve replacement for severe aortic valve regurgitation. Postoperative day #1 History of severe aortic regurgitation. History of intermediate disease involving right coronary artery. Mildly impaired left ventricular systolic function with ejection fraction of 45% Recommendation: Continue cardiac meds including beta blockers, aspirin, statin Wean and discontinue Cleviprex. Wean and discontinue oxygen. Increase activity and encourage incentive spirometry. Continue GI and DVT prophylaxis. Continue pain control management. Discontinue unnecessary lines and catheters. Monitor daily x-rays and daily labs. We'll continue to follow. Time with Patient: Less than 30
[2020-10-06 14:11] LABS: Glucose,Whole Blood 109 mg/dL (75-99)
[2020-10-06 15:20] LABS: Glucose,Whole Blood 96 mg/dL (75-99)
[2020-10-06 16:11] LABS: Glucose,Whole Blood 95 mg/dL (75-99)
--- NOTE | 2020-10-06 16:40 | P.PN ---
Subjective Progress Note Date: 10/06/20 This is a 60-year-old female with history of severe aortic regurgitation who is status post a 12 placement. Patient is extubated yesterday around 6:00 p.m. Patient seems to be doing well. Patient is sitting in the chair. Has some discomfort in the surgical incision. Patient is not on any inotropes. M ediastinal and right chest tubes are still present. Chest x-ray looks normal. Overall patient seemed to be progressing well. No arrhythmias are noted Objective - Vital Signs Vital signs: Vital Signs Temp 99.1 F 10/06/20 04:00 Pulse 73 10/06/20 15:52 Resp 18 10/06/20 15:52 BP 122/50 10/06/20 15:30 Pulse Ox 94 L 10/06/20 15:30 Intake & Output 10/05/20 10/06/20 10/06/20 18:59 06:59 18:59 Intake Total 8126.548 7938.774 789.133 Output Total 2970 767 700 Balance -8840.385 7285.774 89.133 Weight 98.8 kg 98.8 kg Intake: IV 914 938 697 ACETAMINOPHEN IV (For NPO 100 100 ) 1,000 mg In Empty Bag 1 bag @ 400 mls/hr IVPB Q6H [facility] Rx#:[id number] CO/CI 150 180 40 Lactated Ringers 1,000 ml 350 550 350 @ 20 mls/hr IV .Q24H [facility] Rx#:[id number] Pressure Bags 63 108 57 Vancomycin 1,500 mg In 250 Sodium Chloride 0.9% 250 ml @ 125 mls/hr IVPB Q12H [facility] Rx#:[id number] Intake, IV Titration 90.886 368.774 92.133 Amount Clevidipine Butyrate 25 60.800 329.5 76.933 mg In Empty Bag 1 bag @ 1 MG/HR 2 mls/hr IV .Q24H [facility] Rx#:[id number] Dexmedetomidine/0.9% NaCl 3.787 (Pmx) 400 mcg In Empty Bag 1 bag @ Titrate IV . Q0M [facility] Rx#:[id number] Insulin Regular 100 unit 5.967 39.274 15.2 In Sodium Chloride 0.9% 100 ml @ Per Protocol IV .Q0M [facility] Rx#:[id number] propofoL 1,000 mg In 20.332 Empty Bag 1 bag @ Titrate IV .Q0M [facility] Rx#: [id number] Oral 540 Output: Chest Tube Drainage 350 260 270 Mediastinal 350 260 270 Urine 1120 507 430 Estimated Blood Loss 1500 Other: Voiding Method Indwelling Catheter Indwelling Catheter Indwelling Catheter ABP, PAP, CO, CI - Last Documented Arterial Blood Pressure 128/51 Pulmonary Artery Pressure 24/5 Cardiac Output 6.3 Cardiac Index 3 - Exam GENERAL EXAM: Patient is alert and oriented and doesn't appear to be in any acute distress HEENT: Normocephalic. Normal reaction of pupils, equal size, normal range of extraocular motion. No erythema or exudates in the throat. NECK: No masses, no nuchal rigidity. CHEST: No chest wall deformity. LUNGS: Equal air entry with no crackles or wheeze. HEART: S1 and S2 normal with no audible mumurs or gallops. Regular rhythm, femorals equal on both sides.. ABDOMEN: No hepatosplenomegaly, normal bowel sounds, no guarding or rigidity. SKIN: No rashes CENTRAL NERVOUS SYSTEM: No focal deficits. EXTREMITIES: No cyanosis, clubbing or edema. - Labs CBC & Chem 7: 10/06/20 04:08 10/06/20 04:08 Labs: Abnormal Lab Results - Last 24 Hours (Table) 09/28/20 10/05/20 10/05/20 Range/Units 08:47 16:47 16:51 WBC (3.8-10.6) k/uL RBC (3.80-5.40) m/uL Plt Count (150-450) k/uL Neutrophils # (1.3-7.7) k/uL Lymphocytes # (1.0-4.8) k/uL ABG pH 7.28 L (7.35-7.45) ABG pCO2 55 H (35-45) mmHg ABG pO2 168 H (83-108) mmHg ABG HCO3 26 H (21-25) mmol/L ABG Total CO2 27 H (19-24) mmol/L ABG O2 Saturation 99.7 H (94-97) % Sodium (137-145) mmol/L Glucose (74-99) mg/dL POC Glucose (mg/dL) 143 H (75-99) mg/dL AST (14-36) U/L Total Protein (6.3-8.2) g/dL Crossmatch See Detail 10/05/20 10/05/20 10/05/20 Range/Units 17:59 18:02 18:42 WBC 18.1 H (3.8-10.6) k/uL RBC (3.80-5.40) m/uL Plt Count 137 L (150-450) k/uL Neutrophils # 16.4 H (1.3-7.7) k/uL Lymphocytes # 0.9 L (1.0-4.8) k/uL ABG pH 7.30 L (7.35-7.45) ABG pCO2 51 H (35-45) mmHg ABG pO2 165 H (83-108) mmHg ABG HCO3 (21-25) mmol/L ABG Total CO2 26 H (19-24) mmol/L ABG O2 Saturation 99.6 H (94-97) % Sodium (137-145) mmol/L Glucose (74-99) mg/dL POC Glucose (mg/dL) 141 H (75-99) mg/dL AST (14-36) U/L Total Protein (6.3-8.2) g/dL Crossmatch 10/05/20 10/05/20 10/05/20 Range/Units 18:42 18:58 20:10 WBC (3.8-10.6) k/uL RBC (3.80-5.40) m/uL Plt Count (150-450) k/uL Neutrophils # (1.3-7.7) k/uL Lymphocytes # (1.0-4.8) k/uL ABG pH (7.35-7.45) ABG pCO2 (35-45) mmHg ABG pO2 (83-108) mmHg ABG HCO3 (21-25) mmol/L ABG Total CO2 (19-24) mmol/L ABG O2 Saturation (94-97) % Sodium 136 L (137-145) mmol/L Glucose 141 H (74-99) mg/dL POC Glucose (mg/dL) 139 H 150 H (75-99) mg/dL AST 42 H (14-36) U/L Total Protein 5.7 L (6.3-8.2) g/dL Crossmatch 10/05/20 10/05/20 10/06/20 Range/Units 21:32 23:14 00:51 WBC (3.8-10.6) k/uL RBC (3.80-5.40) m/uL Plt Count (150-450) k/uL Neutrophils # (1.3-7.7) k/uL Lymphocytes # (1.0-4.8) k/uL ABG pH (7.35-7.45) ABG pCO2 (35-45) mmHg ABG pO2 (83-108) mmHg ABG HCO3 (21-25) mmol/L ABG Total CO2 (19-24) mmol/L ABG O2 Saturation (94-97) % Sodium (137-145) mmol/L Glucose (74-99) mg/dL POC Glucose (mg/dL) 153 H 129 H 114 H (75-99) mg/dL AST (14-36) U/L Total Protein (6.3-8.2) g/dL Crossmatch 10/06/20 10/06/20 10/06/20 Range/Units 02:24 04:08 04:08 WBC 19.3 H (3.8-10.6) k/uL RBC 3.78 L (3.80-5.40) m/uL Plt Count 121 L (150-450) k/uL Neutrophils # 17.2 H (1.3-7.7) k/uL Lymphocytes # 0.9 L (1.0-4.8) k/uL ABG pH (7.35-7.45) ABG pCO2 (35-45) mmHg ABG pO2 (83-108) mmHg ABG HCO3 (21-25) mmol/L ABG Total CO2 (19-24) mmol/L ABG O2 Saturation (94-97) % Sodium 133 L (137-145) mmol/L Glucose 136 H (74-99) mg/dL POC Glucose (mg/dL) 168 H (75-99) mg/dL AST 42 H (14-36) U/L Total Protein 5.3 L (6.3-8.2) g/dL Crossmatch 10/06/20 10/06/20 10/06/20 Range/Units 04:09 06:22 09:08 WBC (3.8-10.6) k/uL RBC (3.80-5.40) m/uL Plt Count (150-450) k/uL Neutrophils # (1.3-7.7) k/uL Lymphocytes # (1.0-4.8) k/uL ABG pH (7.35-7.45) ABG pCO2 (35-45) mmHg ABG pO2 (83-108) mmHg ABG HCO3 (21-25) mmol/L ABG Total CO2 (19-24) mmol/L ABG O2 Saturation (94-97) % Sodium (137-145) mmol/L Glucose (74-99) mg/dL POC Glucose (mg/dL) 136 H 133 H 119 H (75-99) mg/dL AST (14-36) U/L Total Protein (6.3-8.2) g/dL Crossmatch 10/06/20 10/06/20 10/06/20 Range/Units 10:07 11:42 14:08 WBC (3.8-10.6) k/uL RBC (3.80-5.40) m/uL Plt Count (150-450) k/uL Neutrophils # (1.3-7.7) k/uL Lymphocytes # (1.0-4.8) k/uL ABG pH (7.35-7.45) ABG pCO2 (35-45) mmHg ABG pO2 (83-108) mmHg ABG HCO3 (21-25) mmol/L ABG Total CO2 (19-24) mmol/L ABG O2 Saturation (94-97) % Sodium (137-145) mmol/L Glucose (74-99) mg/dL POC Glucose (mg/dL) 117 H 124 H 109 H (75-99) mg/dL AST (14-36) U/L Total Protein (6.3-8.2) g/dL Crossmatch Assessment and Plan (1) Aortic valve replaced Current Visit: Yes Status: Acute Code(s): Z95.2 - PRESENCE OF PROSTHETIC HEART VALVE SNOMED Code(s): 4830588471727 (2) History of aortic regurgitation Current Visit: Yes Status: Acute Code(s): Z86.79 - PERSONAL HISTORY OF OTHER DISEASES OF THE CIRCULATORY SYSTEM SNOMED Code(s): 961903448 (3) Hypertension Current Visit: Yes Status: Acute Code(s): I10 - ESSENTIAL (PRIMARY) HYPERTENSION SNOMED Code(s): 13263780 Plan: Patient is progressing well. No arrhythmias. Increase activity as tolerated. Incentive spirometry. We'll follow
[2020-10-06 17:30] LABS: Glucose,Whole Blood 87 mg/dL (75-99)
[2020-10-06] MEDS: SENNOSIDES-DOCUSATE SODIUM 1 EACH TAB PO SCH (20:44)
[2020-10-06 20:56] LABS: Glucose,Whole Blood 133 mg/dL (75-99)
[2020-10-06 22:33] LABS: Glucose,Whole Blood 126 mg/dL (75-99)
[2020-10-07 00:02] LABS: Glucose,Whole Blood 102 mg/dL (75-99)
[2020-10-07 02:57] LABS: Glucose,Whole Blood 119 mg/dL (75-99)
[2020-10-07 04:22] LABS: Basophils % (A) 0 %; Eosinophils # (A) 0.1 k/uL (0-0.7); Eosinophils % (A) 1 %; HCT 30.3 % (34.0-46.0); Lymphocytes # (A) 2.1 k/uL (1.0-4.8); Lymphocytes % (A) 18 %; MCH 32.6 pg (25.0-35.0); MCV 98.6 fL (80.0-100.0); Mean Platelet Volume 8.1; Monocytes # (A) 0.7 k/uL (0-1.0); Monocytes % (A) 6 %; Neutrophils # (A) 8.8 k/uL (1.3-7.7); Neutrophils % (A) 74 %; RBC 3.07 m/uL (3.80-5.40); RDW 12.3 % (11.5-15.5); WBC 11.9 k/uL (3.8-10.6)
[2020-10-07 04:40] LABS: Albumin 2.8 g/dL (3.5-5.0); Calcium 8.4 mg/dL (8.4-10.2); Potassium 4.1 mmol/L (3.5-5.1); Total Bilirubin 0.6 mg/dL (0.2-1.3); Total Protein 4.7 g/dL (6.3-8.2)
[2020-10-07 04:40] LABS: Glucose,Whole Blood 105 mg/dL (75-99)
[2020-10-07 04:54] LABS: Platelet Count 68 k/uL (150-450)
[2020-10-07 06:26] LABS: Glucose,Whole Blood 122 mg/dL (75-99)
[2020-10-07] MEDS: KETOROLAC 15 MG/ML 1 ML VIAL IVP SCH ×4 (06:31→23:39)
--- NOTE | 2020-10-07 07:26 | XR ---
EXAMINATION TYPE: XR chest 1V portable DATE OF EXAM: 10/07/2020 HISTORY: Shortness of breath. COMPARISON: 10/06/2020 TECHNIQUE: Single view of the chest is submitted. FINDINGS: Right Sided chest tube is unchanged in position. Small right apical pneumothorax persists. Mediastina l drain is in place. Persistent scattered areas of linear atelectasis. The heart is stable. Hilar and mediastinal structures are within normal limits. Degenerative changes are seen of the dorsal spine. IMPRESSION: 1. Right Sided chest tube is unchanged in position. Small right apical pneumothorax persists. Medias tinal drain is in place. Persistent scattered areas of linear atelectasis.
[2020-10-07] MEDS ORDERED: PANTOPRAZOLE 40 MG TABLET PO SCH (07:30)
[2020-10-07] MEDS: IPRATROPIUM-ALBUTEROL 3 ML NEB INHALATION SCH ×4 (08:02→18:57)
[2020-10-07 08:20] LABS: Glucose,Whole Blood 138 mg/dL (75-99)
--- NOTE | 2020-10-07 08:44 | P.PN ---
Subjective Progress Note Date: 10/07/20 Principal diagnosis: Severe aortic insufficiency, trace to mild mitral regurgitation. Previous medical history of cardiomyopathy with EF around 40%, hypertension, previous tobacco dependence with preoperative FEV1 91% of predicted, left internal carotid artery stenosis 50-79%, occasional marijuana use, DVT in the right leg in 2017 after surgery POD #2 aortic valve replacement with a #23 mm Polanco Inspiris bioprosthetic aortic valve, clip ligation of the left atrial appendage with a 35 mm AtriClip, and intraoperative transesophageal echocardiogram Postoperative acute blood loss anemia, from superior, expected, dilutional The patient is currently sitting up in a recliner in no acute distress in the intensive care unit. She does complain of postsurgical type incisional and chest tube pain controlled on current medication regimen, denies shortness of breath. Remains in normal sinus rhythm and hemodynamically stable, off Cleviprex since yesterday evening. Right internal jugular Cordis, mediastinal and right pleural chest tube all remain present. Patient ambulated in the hallway yesterday without difficulty. No new concerns Objective - Vital Signs Vital signs: Vital Signs Temp 98.7 F 10/07/20 04:30 Pulse 90 10/07/20 08:19 Resp 12 10/07/20 07:00 BP 126/57 10/07/20 07:00 Pulse Ox 96 10/07/20 07:00 Intake & Output 10/06/20 10/07/20 10/07/20 18:59 06:59 18:59 Intake Total 915.516 629.083 30 Output Total 850 1210 60 Balance 65.516 -580.917 -30 Weight 98.8 kg 99.9 kg Intake: IV 777 560 30 CO/CI 40 Lactated Ringers 1,000 ml 430 310 30 @ 20 mls/hr IV .Q24H [facility] Rx#:[id number] Pressure Bags 57 Vancomycin 1,500 mg In 250 250 Sodium Chloride 0.9% 250 ml @ 125 mls/hr IVPB Q12H [facility] Rx#:[id number] Intake, IV Titration 138.516 69.083 Amount Clevidipine Butyrate 25 107.866 61.600 mg In Empty Bag 1 bag @ 1 MG/HR 2 mls/hr IV .Q24H [facility] Rx#:[id number] Insulin Regular 100 unit 30.65 7.483 In Sodium Chloride 0.9% 100 ml @ Per Protocol IV .Q0M [facility] Rx#:[id number] Output: Chest Tube Drainage 310 200 Mediastinal 310 200 Urine 540 1010 60 Other: Voiding Method Indwelling Catheter Indwelling Catheter ABP, PAP, CO, CI - Last Documented Arterial Blood Pressure 128/51 Pulmonary Artery Pressure 24/5 Cardiac Output 6.3 Cardiac Index 3 - Constitutional General appearance: Present: cooperative, no acute distress, obese - Respiratory Details: Lungs sounds diminished bilaterally. Respirations even, nonlabored. Currently on 2 L nasal cannula with oxygen saturation 97%. Able to achieve 1000 mL on her incentive spirometry. Strong productive cough. Mediastinal/right pleural chest tube present and connected to continuous wall suction, 170 mL of thin serosanguineous drainage overnight, 460 mL since surgery, no air leak present. - Cardiovascular Details: S1, S2 present, systolic murmur present. Regular rate and rhythm, sinus rhythm on telemetry. Sternum stable. Ventricular epicardial pacemaker wires present, grounded. Palpable peripheral pulses bilaterally. No edema present. No calf pain or tenderness noted. Heart hugger in place with patient demonstrating appropriate use. Antiembolism stockings, SCDs present. Right internal jugular Cordis present. - Gastrointestinal Gastrointestinal Comment(s): Abdomen soft, nontender, nondistended. Active bowel sounds present 4 quadrants. Tolerating diet. Positive flatus, negative bowel movement. - Genitourinary Genitourinary Comment(s): Lara present draining clear, yellow urine. Output 45-165 mL/h overnight - Integumentary Integumentary Comment(s): Skin is warm and dry with evidence of good perfusion. Anterior chest incision well approximated and covered with dry intact dressing - Neurologic Neurologic: Present: CNII-XII intact - Musculoskeletal Musculoskeletal: Present: gait normal, strength equal bilaterally - Psychiatric Psychiatric: Present: A&O x's 3, appropriate affect, intact judgment & insight - Allied health notes Allied health notes reviewed: nursing - Labs CBC & Chem 7: 10/07/20 03:59 10/07/20 03:59 Labs: Abnormal Lab Results - Last 24 Hours (Table) 10/06/20 10/06/20 10/06/20 Range/Units 09:08 10:07 11:42 WBC (3.8-10.6) k/uL RBC (3.80-5.40) m/uL Hgb (11.4-16.0) gm/dL Hct (34.0-46.0) % Plt Count (150-450) k/uL Neutrophils # (1.3-7.7) k/uL Sodium (137-145) mmol/L BUN (7-17) mg/dL Glucose (74-99) mg/dL POC Glucose (mg/dL) 119 H 117 H 124 H (75-99) mg/dL Total Protein (6.3-8.2) g/dL Albumin (3.5-5.0) g/dL 10/06/20 10/06/20 10/06/20 Range/Units 14:08 20:55 22:31 WBC (3.8-10.6) k/uL RBC (3.80-5.40) m/uL Hgb (11.4-16.0) gm/dL Hct (34.0-46.0) % Plt Count (150-450) k/uL Neutrophils # (1.3-7.7) k/uL Sodium (137-145) mmol/L BUN (7-17) mg/dL Glucose (74-99) mg/dL POC Glucose (mg/dL) 109 H 133 H 126 H (75-99) mg/dL Total Protein (6.3-8.2) g/dL Albumin (3.5-5.0) g/dL 10/07/20 10/07/20 10/07/20 Range/Units 00:01 02:56 03:59 WBC 11.9 H (3.8-10.6) k/uL RBC 3.07 L (3.80-5.40) m/uL Hgb 10.0 L D (11.4-16.0) gm/dL Hct 30.3 L (34.0-46.0) % Plt Count 68 L (150-450) k/uL Neutrophils # 8.8 H (1.3-7.7) k/uL Sodium (137-145) mmol/L BUN (7-17) mg/dL Glucose (74-99) mg/dL POC Glucose (mg/dL) 102 H 119 H (75-99) mg/dL Total Protein (6.3-8.2) g/dL Albumin (3.5-5.0) g/dL 10/07/20 10/07/20 10/07/20 Range/Units 03:59 04:39 06:25 WBC (3.8-10.6) k/uL RBC (3.80-5.40) m/uL Hgb (11.4-16.0) gm/dL Hct (34.0-46.0) % Plt Count (150-450) k/uL Neutrophils # (1.3-7.7) k/uL Sodium 131 L (137-145) mmol/L BUN 18 H (7-17) mg/dL Glucose 105 H (74-99) mg/dL POC Glucose (mg/dL) 105 H 122 H (75-99) mg/dL Total Protein 4.7 L (6.3-8.2) g/dL Albumin 2.8 L (3.5-5.0) g/dL 10/07/20 Range/Units 08:19 WBC (3.8-10.6) k/uL RBC (3.80-5.40) m/uL Hgb (11.4-16.0) gm/dL Hct (34.0-46.0) % Plt Count (150-450) k/uL Neutrophils # (1.3-7.7) k/uL Sodium (137-145) mmol/L BUN (7-17) mg/dL Glucose (74-99) mg/dL POC Glucose (mg/dL) 138 H (75-99) mg/dL Total Protein (6.3-8.2) g/dL Albumin (3.5-5.0) g/dL - Imaging and Cardiology Chest x-ray: report reviewed, image reviewed Assessment and Plan Assessment: 1. Severe aortic insufficiency, trace to mild mitral regurgitation, status post bioprosthetic aortic valve replacement 2. Cardiomyopathy with EF around 40% on MIKI 3. Hypertension 4. Previous tobacco dependence with preoperative FEV1 91% of predicted 5. Left internal carotid artery stenosis 50-79% 6. Occasional marijuana use 7. DVT in the right leg in 2017 after surgery 8. Postoperative acute blood loss anemia, thrombocytopenia, expected, dilutional Plan: 1. Continue low-dose aspirin, statin, Plavix, OSORIO inhibitor, beta el therapy. Will increase beta el as tolerated 2. Wean O2 as tolerated. Encourage incentive spirometry 10 times every hour while awake. Bronchodilators per pulmonology. Encourage continued smoking cessation 3. Increase activity, ambulate as tolerated. PT/OT/cardiac rehab consulted 4. Will monitor daily labs and x-rays. Electrode placement per protocol. No blood transfusion. Will give 40 mg IVP lasix today 5. GI/DVT prophylaxis, hold subcu heparin for platelet count less than 100,000 6. Pain control with current medication regimen 7. Insulin management per Dr. Ortiz. Patient is not diabetic, preoperative hemoglobin A1c 5.6% 8. Discontinue cordis, epicardial pacemaker wires 9. Will discontinue mediastinal and right pleural chest tube 10. Discontinue Lara catheter. May bladder scan and straight cath for greater than 300 mL residual 11. Strict accurate intake and output 12. Monitor daily weights on standup scale, not bed scale 13. Will place transfer orders for cardiac stepdown unit. May transfer when bed available 14. More recommendations to follow based on patient's progress The patient was seen and examined and I agree with the assessment and plan documented by the nurse practitioner Time with Patient: Greater than 30
[2020-10-07] MEDS: HEPARIN SODIUM,PORCINE 5,000 UNIT/ML 1 ML VIAL SQ SCH ×3 (08:57→23:51)
[2020-10-07] MEDS: ATORVASTATIN 40 MG TAB PO SCH (09:00)
[2020-10-07] MEDS: CLOPIDOGREL 75 MG TAB PO SCH (09:00)
[2020-10-07] MEDS: ASPIRIN 81 MG PO SCH (09:00)
[2020-10-07] MEDS: buPROPion SR 100 MG TABLET.ER PO SCH (09:00)
[2020-10-07] MEDS: LACTATED RINGERS 1,000 ML IV SCH (09:00)
[2020-10-07] MEDS: METOPROLOL TARTRATE 25 MG TAB PO SCH ×2 (09:00→21:48)
[2020-10-07] MEDS: MUPIROCIN 2% OINT 22 GM TUBE NASAL SCH ×2 (09:01→21:48)
[2020-10-07] MEDS ORDERED: FUROSEMIDE 10 MG/ML 4 ML VIAL IV STA (09:35)
--- NOTE | 2020-10-07 10:28 | P.PN ---
Subjective Progress Note Date: 10/07/20 This is a 60-year-old female with history of severe aortic regurgitation who is status post a 12 placement. Patient is extubated yesterday around 6:00 p.m. Patient seems to be doing well. Patient is sitting in the chair. Has some discomfort in the surgical incision. Patient is not on any inotropes. M ediastinal and right chest tubes are still present. Chest x-ray looks normal. Overall patient seemed to be progressing well. No arrhythmias are noted. 10/07/2020: This patient had aortic wall replacement for severe aortic regurgitation. Patient is feeling better. She is physically active. M ediastinoscopy chest tube is still there and most probably will be taken out today. No arrhythmias are noted. A chest x-ray looks good. Overall, she is progressing well Objective - Vital Signs Vital signs: Vital Signs Temp 98.3 F 10/07/20 08:00 Pulse 82 10/07/20 09:30 Resp 10 L 10/07/20 09:30 BP 113/49 10/07/20 09:30 Pulse Ox 97 10/07/20 09:30 Intake & Output 10/06/20 10/07/20 10/07/20 18:59 06:59 18:59 Intake Total 915.516 629.083 90 Output Total 850 1210 160 Balance 65.516 -580.917 -70 Weight 98.8 kg 99.9 kg Intake: IV 777 560 90 CO/CI 40 Lactated Ringers 1,000 ml 430 310 90 @ 20 mls/hr IV .Q24H [facility] Rx#:[id number] Pressure Bags 57 Vancomycin 1,500 mg In 250 250 Sodium Chloride 0.9% 250 ml @ 125 mls/hr IVPB Q12H [facility] Rx#:[id number] Intake, IV Titration 138.516 69.083 Amount Clevidipine Butyrate 25 107.866 61.600 mg In Empty Bag 1 bag @ 1 MG/HR 2 mls/hr IV .Q24H [facility] Rx#:[id number] Insulin Regular 100 unit 30.65 7.483 In Sodium Chloride 0.9% 100 ml @ Per Protocol IV .Q0M [facility] Rx#:[id number] Output: Chest Tube Drainage 310 200 Mediastinal 310 200 Urine 540 1010 160 Other: Voiding Method Indwelling Catheter Indwelling Catheter Indwelling Catheter ABP, PAP, CO, CI - Last Documented Arterial Blood Pressure 128/51 Pulmonary Artery Pressure 24/5 Cardiac Output 6.3 Cardiac Index 3 - Exam GENERAL EXAM: Patient is alert and oriented and doesn't appear to be in any acute distress HEENT: Normocephalic. Normal reaction of pupils, equal size, normal range of extraocular motion. No erythema or exudates in the throat. NECK: No masses, no nuchal rigidity. CHEST: No chest wall deformity. LUNGS: Equal air entry with no crackles or wheeze. HEART: S1 and S2 normal with no audible mumurs or gallops. Regular rhythm, femorals equal on both sides.. ABDOMEN: No hepatosplenomegaly, normal bowel sounds, no guarding or rigidity. SKIN: No rashes CENTRAL NERVOUS SYSTEM: No focal deficits. EXTREMITIES: No cyanosis, clubbing or edema. - Labs CBC & Chem 7: 10/07/20 03:59 10/07/20 03:59 Labs: Abnormal Lab Results - Last 24 Hours (Table) 10/06/20 10/06/20 10/06/20 Range/Units 11:42 14:08 20:55 WBC (3.8-10.6) k/uL RBC (3.80-5.40) m/uL Hgb (11.4-16.0) gm/dL Hct (34.0-46.0) % Plt Count (150-450) k/uL Neutrophils # (1.3-7.7) k/uL Sodium (137-145) mmol/L BUN (7-17) mg/dL Glucose (74-99) mg/dL POC Glucose (mg/dL) 124 H 109 H 133 H (75-99) mg/dL Total Protein (6.3-8.2) g/dL Albumin (3.5-5.0) g/dL 10/06/20 10/07/20 10/07/20 Range/Units 22:31 00:01 02:56 WBC (3.8-10.6) k/uL RBC (3.80-5.40) m/uL Hgb (11.4-16.0) gm/dL Hct (34.0-46.0) % Plt Count (150-450) k/uL Neutrophils # (1.3-7.7) k/uL Sodium (137-145) mmol/L BUN (7-17) mg/dL Glucose (74-99) mg/dL POC Glucose (mg/dL) 126 H 102 H 119 H (75-99) mg/dL Total Protein (6.3-8.2) g/dL Albumin (3.5-5.0) g/dL 10/07/20 10/07/20 10/07/20 Range/Units 03:59 03:59 04:39 WBC 11.9 H (3.8-10.6) k/uL RBC 3.07 L (3.80-5.40) m/uL Hgb 10.0 L D (11.4-16.0) gm/dL Hct 30.3 L (34.0-46.0) % Plt Count 68 L (150-450) k/uL Neutrophils # 8.8 H (1.3-7.7) k/uL Sodium 131 L (137-145) mmol/L BUN 18 H (7-17) mg/dL Glucose 105 H (74-99) mg/dL POC Glucose (mg/dL) 105 H (75-99) mg/dL Total Protein 4.7 L (6.3-8.2) g/dL Albumin 2.8 L (3.5-5.0) g/dL 10/07/20 10/07/20 Range/Units 06:25 08:19 WBC (3.8-10.6) k/uL RBC (3.80-5.40) m/uL Hgb (11.4-16.0) gm/dL Hct (34.0-46.0) % Plt Count (150-450) k/uL Neutrophils # (1.3-7.7) k/uL Sodium (137-145) mmol/L BUN (7-17) mg/dL Glucose (74-99) mg/dL POC Glucose (mg/dL) 122 H 138 H (75-99) mg/dL Total Protein (6.3-8.2) g/dL Albumin (3.5-5.0) g/dL Assessment and Plan (1) Aortic valve replaced Current Visit: Yes Status: Acute Code(s): Z95.2 - PRESENCE OF PROSTHETIC HEART VALVE SNOMED Code(s): 7560231927516 (2) History of aortic regurgitation Current Visit: Yes Status: Acute Code(s): Z86.79 - PERSONAL HISTORY OF OTHER DISEASES OF THE CIRCULATORY SYSTEM SNOMED Code(s): 453307377 (3) Hypertension Current Visit: Yes Status: Acute Code(s): I10 - ESSENTIAL (PRIMARY) HYPERTENSION SNOMED Code(s): 09698032 Plan: Patient is progressing well. Increase activity. Continue incentive spirometry.
[2020-10-07 12:00] LABS: Glucose,Whole Blood 127 mg/dL (75-99)
[2020-10-07] MEDS: INSULIN ASPART (NovoLOG) 100 UNIT/ML VIAL SQ SCH ×3 (12:03→21:44)
--- NOTE | 2020-10-07 12:06 | P.PN ---
Subjective Progress Note Date: 10/07/20 Principal diagnosis: Post aortic valve placement, history of coagulopathy, chronic anemia, severe cardiopathy, hyperglycemia. 60-year-old female was transferred recently from [place] to [place] to take care of her mom she is new to our office was seen and evaluated for recurrent episode of shortness of breath and mild chest pain along with anemia found to have very loud murmur. Patient ended up seeing cardiology transesophageal echocardiogram along with heart cath were done and patient was diagnosed with severe aortic regurgitation. Patient was referred to cardiothoracic service and was recommended to go for elective aortic valve placement. Surgery was done today successfully with no major complication patient was on the ventilator for sure. If time was taking off still have chest tube still have [place] catheter along with another central line. Hemodynamically very stable and patient is not in any pain. 10/06: Patient is doing very well off the vent very stable hemodynamically she is not in any pain, still using DuoNeb for reactive airway, blood sugar was mildly elevated and being cover with sliding scale. Patient is on heparin subcutaneous currently no longer term anticoagulation decided this point. 10/07: Patient is doing very well her blood sugar is much better pain is well tolerated this point patient still have 2 chest tube going into one drain is able to walk in able to stay in a chair no A. fib today patient is stable on her current medication. Objective - Vital Signs Vital signs: Vital Signs Temp 98.3 F 10/07/20 08:00 Pulse 82 10/07/20 09:30 Resp 10 L 10/07/20 09:30 BP 113/49 10/07/20 09:30 Pulse Ox 97 10/07/20 09:30 Intake & Output 10/06/20 10/07/20 10/07/20 18:59 06:59 18:59 Intake Total 915.516 629.083 90 Output Total 850 1210 160 Balance 65.516 -580.917 -70 Weight 98.8 kg 99.9 kg Intake: IV 777 560 90 CO/CI 40 Lactated Ringers 1,000 ml 430 310 90 @ 20 mls/hr IV .Q24H [facility] Rx#:[id number] Pressure Bags 57 Vancomycin 1,500 mg In 250 250 Sodium Chloride 0.9% 250 ml @ 125 mls/hr IVPB Q12H [facility] Rx#:[id number] Intake, IV Titration 138.516 69.083 Amount Clevidipine Butyrate 25 107.866 61.600 mg In Empty Bag 1 bag @ 1 MG/HR 2 mls/hr IV .Q24H [facility] Rx#:[id number] Insulin Regular 100 unit 30.65 7.483 In Sodium Chloride 0.9% 100 ml @ Per Protocol IV .Q0M [facility] Rx#:[id number] Output: Chest Tube Drainage 310 200 Mediastinal 310 200 Urine 540 1010 160 Other: Voiding Method Indwelling Catheter Indwelling Catheter Indwelling Catheter ABP, PAP, CO, CI - Last Documented Arterial Blood Pressure 128/51 Pulmonary Artery Pressure 24/5 Cardiac Output 6.3 Cardiac Index 3 - Exam Review of Systems CONSTITUTIONAL: Well-developed no acute respiratory distress. EYES: No icterus sclerae, no conjunctivitis. EARS, NOSE, MOUTH, THROAT, and FACE: No sore throat, lymphadenopathy, carotid bruits or deformity. RESPIRATORY: Mild shortness of breath chest pain with deep inspiration. CARDIOVASCULAR: Positive PVCs with no angina. GASTROINTESTINAL: No Abd pain, Nausea or vomiting, no Diarrhea or constipation, No GI Bleed, no distention or masses. GENITOURINARY: Negative for Hematuria or UTI, no kidney stones. INTEGUMENT/BREAST: Negative for any muscular injury with mild osteoarthritis.. HEMATOLOGIC/LYMPHATIC: Negative for bleed or purpura. MUSCULOSKELTAL: Negative for Myalgia or arthralgia. NEURLOGICAL: No LOC, Sz or syncope, blurred vision dizziness or abnormality.. BEHAVIORAL/PSYCH: Negative. ENDOCRINE: Negative. Physical Exam Vitals: General Appearance: Alert, cooperative, no distress, appears stated age. Neck HEENT: Supple, no lymphadenopathy, no thyroid enlargement, no carotid bruits. [place] catheter on the right side Lungs: Decreased breath sounds bilaterally especially in the left side and fine rhonchi no crackles or wheezes. Chest Wall: Slight pain and discomfort in the chest wall area from her surgical site with no other deformity still have chest tube. Heart: Regular rate and rhythm, S1, S2 normal, no murmur, rub or gallop. Back: Symmetric, no curvature, ROM normal, no CVA tenderness. Abdomen: Soft, non-tender, bowel sounds active all four quadrants, no masses, no organomegaly. Extremities: Extremities normal, atraumatic, no cyanosis or edema. Pulses: 2+ and symmetric. Skin: Skin color, texture, tugor normal, no rashes or lesions. Neurologic: Alert oriented x3 cranial nerves II through XII intact, no motor deficit, no abnormal balance or gait. - Labs CBC & Chem 7: 10/07/20 03:59 10/07/20 03:59 Labs: Abnormal Lab Results - Last 24 Hours (Table) 10/06/20 10/06/20 10/06/20 Range/Units 14:08 20:55 22:31 WBC (3.8-10.6) k/uL RBC (3.80-5.40) m/uL Hgb (11.4-16.0) gm/dL Hct (34.0-46.0) % Plt Count (150-450) k/uL Neutrophils # (1.3-7.7) k/uL Sodium (137-145) mmol/L BUN (7-17) mg/dL Glucose (74-99) mg/dL POC Glucose (mg/dL) 109 H 133 H 126 H (75-99) mg/dL Total Protein (6.3-8.2) g/dL Albumin (3.5-5.0) g/dL 10/07/20 10/07/20 10/07/20 Range/Units 00:01 02:56 03:59 WBC 11.9 H (3.8-10.6) k/uL RBC 3.07 L (3.80-5.40) m/uL Hgb 10.0 L D (11.4-16.0) gm/dL Hct 30.3 L (34.0-46.0) % Plt Count 68 L (150-450) k/uL Neutrophils # 8.8 H (1.3-7.7) k/uL Sodium (137-145) mmol/L BUN (7-17) mg/dL Glucose (74-99) mg/dL POC Glucose (mg/dL) 102 H 119 H (75-99) mg/dL Total Protein (6.3-8.2) g/dL Albumin (3.5-5.0) g/dL 10/07/20 10/07/20 10/07/20 Range/Units 03:59 04:39 06:25 WBC (3.8-10.6) k/uL RBC (3.80-5.40) m/uL Hgb (11.4-16.0) gm/dL Hct (34.0-46.0) % Plt Count (150-450) k/uL Neutrophils # (1.3-7.7) k/uL Sodium 131 L (137-145) mmol/L BUN 18 H (7-17) mg/dL Glucose 105 H (74-99) mg/dL POC Glucose (mg/dL) 105 H 122 H (75-99) mg/dL Total Protein 4.7 L (6.3-8.2) g/dL Albumin 2.8 L (3.5-5.0) g/dL 10/07/20 10/07/20 Range/Units 08:19 11:58 WBC (3.8-10.6) k/uL RBC (3.80-5.40) m/uL Hgb (11.4-16.0) gm/dL Hct (34.0-46.0) % Plt Count (150-450) k/uL Neutrophils # (1.3-7.7) k/uL Sodium (137-145) mmol/L BUN (7-17) mg/dL Glucose (74-99) mg/dL POC Glucose (mg/dL) 138 H 127 H (75-99) mg/dL Total Protein (6.3-8.2) g/dL Albumin (3.5-5.0) g/dL Assessment and Plan Assessment: 1 status post aortic valve placement: Secondary to severe aortic regurgitation with mild impair left ventricular function, patient had bioprosthetic aortic valve with clip ligation of the left Atralin appendage and stable h emodynamically no A. fib on many mom vasopressor. 2 mild impaired left ventricular function: Most likely from the effect of the severe aortic regurgitation, continue medical management post surgery patient was still on beta el along with Renzo and possibly diuretics. 3 chronic anemia: Hemoglobin stable currently patient was on iron supplement as an outpatient which will be continue. 4 hyperglycemia: Continue Accu-Chek with sliding scales coverage to to keep her blood sugar between 120 and 150. 5 chronic depression: Has been on Wellbutrin which will be resumed. 6 hyperlipidemia: On atorvastatin 40 mg a day resume medication. 7 mild arrhythmia mostly PVCs was doing very well on beta el. 8 mild reactive airway: Continue DuoNeb for now continue supportive oxygen. 9 history of coagulopathy: Patient is currently on heparin patient will have early mobilization along with knee-high NATE hose continue heparin subcutaneous whether to go on oral anticoagulation or not this to be determined. Developed to have mild thrombocytopenia was taking off heparin drip and heparin subcutaneous.
--- NOTE | 2020-10-07 14:47 | P.PN ---
Subjective Progress Note Date: 10/07/20 Principal diagnosis: Postoperative day #2, aortic valve replacement with bioprosthetic valve This is a 60-year-old female with known history of severe aortic regurgitation, recently diagnosed by transesophageal echocardiogram and cardiac catheterization. Patient underwent today an elective aortic valve replacement, and she was admitted to the ICU on mechanical ventilation. I was asked to see her on consultation. Presently the patient is on assist control mode of mechanical ventilation rate of 12 tidal volume is 400 FiO2 is 50% and PEEP of 5. ABG showed a pO2 of more than 400 pCO2 of 43 pH of 7.38. Hence the patient was changed to FiO2 of 50%. Patient is now on propofol drip at 50 mcg/kg/m, she is also on clevidipine at 6 mg/h, IV fluid at 50 mL per hour. Patient is sedated, and hemodynamically stable, in no distress. Postoperative chest x-ray showed satisfactory postoperative findings, basically unremarkable Patient was reevaluated today on 10/06/20, patient was successfully extubated yesterday at 18:11. Patient is doing well today, sitting in her recliner, in no distress, has some vague postsurgical incisional pain, she is not requiring any pressors or any inotropes. However she is on clevidipine for blood pressure control. Continues to have multiple lines including a right IJ [place]/cor this, continues to have mediastinal and right pleural chest tube and the right radial arterial line. These are being addressed by thoracic surgery on the case. Chest x-ray is basically unremarkable. Labs are relatively normal today. Patient was reevaluated today on 10/07/20, patient remains in the ICU, she is sitting in her recliner, does not seem to be in any form of respiratory distress. Patient is off clevidipine, she is hemodynamically stable, not requiring any inotropes or any pressors. She ambulated in the hallway yesterday without difficulty. Doing fairly well with incentive spirometry. Chest x-ray is reassuring, mostly postoperative changes, no acute process noted. CBC is relatively normal left lites are normal renal profile is normal Objective - Vital Signs Vital signs: Vital Signs Temp 98.1 F 10/07/20 12:00 Pulse 75 10/07/20 14:00 Resp 9 L 10/07/20 14:00 BP 108/44 10/07/20 14:00 Pulse Ox 95 10/07/20 14:00 Intake & Output 10/06/20 10/07/20 10/07/20 18:59 06:59 18:59 Intake Total 915.516 629.083 160 Output Total 850 1210 1360 Balance 65.516 -580.917 -1200 Weight 98.8 kg 99.9 kg Intake: IV 777 560 160 CO/CI 40 Lactated Ringers 1,000 ml 430 310 160 @ 20 mls/hr IV .Q24H [facility] Rx#:[id number] Pressure Bags 57 Vancomycin 1,500 mg In 250 250 Sodium Chloride 0.9% 250 ml @ 125 mls/hr IVPB Q12H [facility] Rx#:[id number] Intake, IV Titration 138.516 69.083 Amount Clevidipine Butyrate 25 107.866 61.600 mg In Empty Bag 1 bag @ 1 MG/HR 2 mls/hr IV .Q24H [facility] Rx#:[id number] Insulin Regular 100 unit 30.65 7.483 In Sodium Chloride 0.9% 100 ml @ Per Protocol IV .Q0M [facility] Rx#:[id number] Output: Chest Tube Drainage 310 200 Mediastinal 310 200 Urine 540 1010 1360 Other: Voiding Method Indwelling Catheter Indwelling Catheter Indwelling Catheter ABP, PAP, CO, CI - Last Documented Arterial Blood Pressure 128/51 Pulmonary Artery Pressure 24/5 Cardiac Output 6.3 Cardiac Index 3 - Exam Physical Exam: Revealed a 60-year-old female in no distress Head: Atraumatic, normocephalic, HEENT:[Neck is supple.] [No neck masses.] [No thyromegaly.] [No JVD.] Chest: [Symmetrical chest expansion, diminished breath sounds at the bases.Mediastinal/right pleural chest tube present and connected to continuous wall suction, 170 mL of thin serosanguineous drainage overnight, 460 mL since surgery, no air leak present. Cardiac Exam: [Normal S1 and S2, no S3 gallop, positive pericardial rub. Abdomen: [Soft, nontender, no megaly, no rebound, no guarding, normal bowel sounds.] Extremities: [No clubbing, no edema, no cyanosis.] Neurological Exam: Alert and oriented 3, no gross focal deficits. Psychiatric: Normal mood affect and normal mental status examination. Skin: No rashes. - Labs CBC & Chem 7: 10/07/20 03:59 10/07/20 03:59 Labs: Abnormal Lab Results - Last 24 Hours (Table) 10/06/20 10/06/20 10/07/20 Range/Units 20:55 22:31 00:01 WBC (3.8-10.6) k/uL RBC (3.80-5.40) m/uL Hgb (11.4-16.0) gm/dL Hct (34.0-46.0) % Plt Count (150-450) k/uL Neutrophils # (1.3-7.7) k/uL Sodium (137-145) mmol/L BUN (7-17) mg/dL Glucose (74-99) mg/dL POC Glucose (mg/dL) 133 H 126 H 102 H (75-99) mg/dL Total Protein (6.3-8.2) g/dL Albumin (3.5-5.0) g/dL 10/07/20 10/07/20 10/07/20 Range/Units 02:56 03:59 03:59 WBC 11.9 H (3.8-10.6) k/uL RBC 3.07 L (3.80-5.40) m/uL Hgb 10.0 L D (11.4-16.0) gm/dL Hct 30.3 L (34.0-46.0) % Plt Count 68 L (150-450) k/uL Neutrophils # 8.8 H (1.3-7.7) k/uL Sodium 131 L (137-145) mmol/L BUN 18 H (7-17) mg/dL Glucose 105 H (74-99) mg/dL POC Glucose (mg/dL) 119 H (75-99) mg/dL Total Protein 4.7 L (6.3-8.2) g/dL Albumin 2.8 L (3.5-5.0) g/dL 10/07/20 10/07/20 10/07/20 Range/Units 04:39 06:25 08:19 WBC (3.8-10.6) k/uL RBC (3.80-5.40) m/uL Hgb (11.4-16.0) gm/dL Hct (34.0-46.0) % Plt Count (150-450) k/uL Neutrophils # (1.3-7.7) k/uL Sodium (137-145) mmol/L BUN (7-17) mg/dL Glucose (74-99) mg/dL POC Glucose (mg/dL) 105 H 122 H 138 H (75-99) mg/dL Total Protein (6.3-8.2) g/dL Albumin (3.5-5.0) g/dL 10/07/20 Range/Units 11:58 WBC (3.8-10.6) k/uL RBC (3.80-5.40) m/uL Hgb (11.4-16.0) gm/dL Hct (34.0-46.0) % Plt Count (150-450) k/uL Neutrophils # (1.3-7.7) k/uL Sodium (137-145) mmol/L BUN (7-17) mg/dL Glucose (74-99) mg/dL POC Glucose (mg/dL) 127 H (75-99) mg/dL Total Protein (6.3-8.2) g/dL Albumin (3.5-5.0) g/dL Assessment and Plan Assessment: Impression Postoperative day #2 .aortic valve replacement with a #23 mm Polanco Inspiris bioprosthetic aortic valve, clip ligation of the left atrial appendage with a 35 mm AtriClip, intraoperative transesophageal echocardiogram History of severe aortic regurgitation. History of intermediate disease involving right coronary artery. Mildly impaired left ventricular systolic function with ejection fraction of 45% Recommendation: Continue cardiac meds including beta blockers, aspirin, statin Wean and discontinue oxygen. Increase activity and encourage incentive spirometry. Continue GI and DVT prophylaxis. Continue pain control management. Chest x-ray was reviewed and it is reassuring. We'll continue to follow. Time with Patient: Less than 30
[2020-10-07 16:44] LABS: Glucose,Whole Blood 120 mg/dL (75-99)
[2020-10-07] MEDS: PANTOPRAZOLE 40 MG TABLET PO SCH (18:25)
[2020-10-07 21:18] LABS: Glucose,Whole Blood 109 mg/dL (75-99)
[2020-10-07] MEDS: SENNOSIDES-DOCUSATE SODIUM 1 EACH TAB PO SCH (21:48)
[2020-10-07] MEDS: HYDROcodone/APAP 5-325MG 1 EACH TAB PO PRN (21:56)
[2020-10-08 01:53] LABS: Glucose,Whole Blood 129 mg/dL (75-99)
[2020-10-08 04:46] LABS: Basophils % (A) 0 %; Eosinophils # (A) 0.1 k/uL (0-0.7); Eosinophils % (A) 1 %; HGB 9.3 gm/dL (11.4-16.0); Lymphocytes # (A) 2.6 k/uL (1.0-4.8); Lymphocytes % (A) 27 %; MCH 31.8 pg (25.0-35.0); MCHC 33.3 g/dL (31.0-37.0); MCV 95.2 fL (80.0-100.0); Mean Platelet Volume 8.6; Monocytes # (A) 0.6 k/uL (0-1.0); Monocytes % (A) 7 %; Neutrophils # (A) 5.9 k/uL (1.3-7.7); Neutrophils % (A) 63 %; RBC 2.94 m/uL (3.80-5.40); RDW 12.2 % (11.5-15.5); WBC 9.4 k/uL (3.8-10.6)
[2020-10-08 04:57] LABS: Albumin 2.8 g/dL (3.5-5.0); Calcium 8.6 mg/dL (8.4-10.2); Total Bilirubin 0.9 mg/dL (0.2-1.3); Total Protein 4.9 g/dL (6.3-8.2)
[2020-10-08 04:59] LABS: Platelet Count 78 k/uL (150-450)
[2020-10-08 05:12] LABS: Potassium 3.9 mmol/L (3.5-5.1)
[2020-10-08 06:36] LABS: Glucose,Whole Blood 115 mg/dL (75-99)
[2020-10-08] MEDS: KETOROLAC 15 MG/ML 1 ML VIAL IVP SCH ×3 (06:42→16:59)
[2020-10-08] MEDS ORDERED: POTASSIUM CHLORIDE ER 20 MEQ TAB.ER PO SCH (07:00)
[2020-10-08] MEDS: INSULIN ASPART (NovoLOG) 100 UNIT/ML VIAL SQ SCH ×3 (07:52→16:58)
[2020-10-08] MEDS: ASPIRIN 81 MG PO SCH (07:59)
[2020-10-08] MEDS: buPROPion SR 100 MG TABLET.ER PO SCH (07:59)
[2020-10-08] MEDS: HEPARIN SODIUM,PORCINE 5,000 UNIT/ML 1 ML VIAL SQ SCH ×3 (07:59→22:33)
[2020-10-08] MEDS: ATORVASTATIN 40 MG TAB PO SCH (07:59)
[2020-10-08] MEDS: PANTOPRAZOLE 40 MG TABLET PO SCH ×2 (07:59→16:59)
[2020-10-08] MEDS: ACETAMINOPHEN TAB 325 MG TAB PO PRN ×2 (08:00→22:33)
[2020-10-08] MEDS: CLOPIDOGREL 75 MG TAB PO SCH (08:00)
[2020-10-08] MEDS: METOPROLOL TARTRATE 25 MG TAB PO SCH ×2 (08:00→22:33)
[2020-10-08] MEDS: MUPIROCIN 2% OINT 22 GM TUBE NASAL SCH (08:00)
[2020-10-08] MEDS: MAGNESIUM HYDROXIDE 2,400 MG/10 ML CUP PO PRN (08:01)
--- NOTE | 2020-10-08 08:11 | P.PN ---
Subjective Progress Note Date: 10/08/20 Principal diagnosis: Severe aortic insufficiency, trace to mild mitral regurgitation. Previous medical history of cardiomyopathy with EF around 40%, hypertension, previous tobacco dependence with preoperative FEV1 91% of predicted, left internal carotid artery stenosis 50-79%, occasional marijuana use, DVT in the right leg in 2017 after surgery POD #3 aortic valve replacement with a #23 mm Polanco Inspiris bioprosthetic aortic valve, clip ligation of the left atrial appendage with a 35 mm AtriClip, and intraoperative transesophageal echocardiogram Postoperative acute blood loss anemia, from superior, expected, dilutional The patient is currently sitting up in a recliner in no acute distress in the intensive care unit. She states pain is controlled on current medication regimen, denies shortness of breath. Remains in normal sinus rhythm and hemodynamically stable. Right internal jugular Cordis remains present due to inability to obtain second IV site. Patient ambulated in the hallway yesterday without difficulty. No new concerns Objective - Vital Signs Vital signs: Vital Signs Temp 98.4 F 10/08/20 04:00 Pulse 84 10/08/20 05:00 Resp 10 L 10/08/20 05:00 BP 94/51 10/08/20 05:00 Pulse Ox 94 L 10/08/20 05:00 Intake & Output 10/07/20 10/07/20 10/08/20 06:59 18:59 06:59 Intake Total 629.083 280 320 Output Total 1210 1360 200 Balance -580.917 -1080 120 Weight 99.9 kg Intake: IV 560 280 320 Lactated Ringers 1,000 ml 310 280 320 @ 20 mls/hr IV .Q24H [facility] Rx#:[id number] Vancomycin 1,500 mg In 250 Sodium Chloride 0.9% 250 ml @ 125 mls/hr IVPB Q12H [facility] Rx#:[id number] Intake, IV Titration 69.083 Amount Clevidipine Butyrate 25 61.600 mg In Empty Bag 1 bag @ 1 MG/HR 2 mls/hr IV .Q24H [facility] Rx#:[id number] Insulin Regular 100 unit 7.483 In Sodium Chloride 0.9% 100 ml @ Per Protocol IV .Q0M [facility] Rx#:[id number] Output: Chest Tube Drainage 200 Mediastinal 200 Urine 1010 1360 200 Other: Voiding Method Indwelling Catheter Indwelling Catheter Toilet # Voids 1 # Bowel Movements 1 ABP, PAP, CO, CI - Last Documented Arterial Blood Pressure 128/51 Pulmonary Artery Pressure 24/5 Cardiac Output 6.3 Cardiac Index 3 - Constitutional General appearance: Present: cooperative, no acute distress, obese - Respiratory Details: Lungs sounds diminished bilaterally. Respirations even, nonlabored. Currently on room air with oxygen saturation 94%. Able to achieve 1250 mL on her incentive spirometry. Strong productive cough. - Cardiovascular Details: S1, S2 present, systolic murmur present. Regular rate and rhythm, sinus rhythm on telemetry. Sternum stable. Palpable peripheral pulses bilaterally. No edema present. No calf pain or tenderness noted. Heart hugger in place with patient demonstrating appropriate use. Antiembolism stockings, SCDs present. Right internal jugular Cordis present. - Gastrointestinal Gastrointestinal Comment(s): Abdomen soft, nontender, nondistended. Active bowel sounds present 4 quadrants. Tolerating diet. Positive flatus, negative bowel movement. - Genitourinary Genitourinary Comment(s): Lara discontinued yesterday, patient has voided - Integumentary Integumentary Comment(s): Skin is warm and dry with evidence of good perfusion. Anterior chest incision well approximated and covered with dry intact dressing - Neurologic Neurologic: Present: CNII-XII intact - Musculoskeletal Musculoskeletal: Present: gait normal, strength equal bilaterally - Psychiatric Psychiatric: Present: A&O x's 3, appropriate affect, intact judgment & insight - Allied health notes Allied health notes reviewed: nursing - Labs CBC & Chem 7: 10/08/20 04:31 10/08/20 04:31 Labs: Abnormal Lab Results - Last 24 Hours (Table) 10/07/20 10/07/20 10/07/20 Range/Units 08:19 11:58 16:43 RBC (3.80-5.40) m/uL Hgb (11.4-16.0) gm/dL Hct (34.0-46.0) % Plt Count (150-450) k/uL Sodium (137-145) mmol/L Glucose (74-99) mg/dL POC Glucose (mg/dL) 138 H 127 H 120 H (75-99) mg/dL Total Protein (6.3-8.2) g/dL Albumin (3.5-5.0) g/dL 10/07/20 10/08/20 10/08/20 Range/Units 21:16 01:51 04:31 RBC 2.94 L (3.80-5.40) m/uL Hgb 9.3 L (11.4-16.0) gm/dL Hct 28.0 L (34.0-46.0) % Plt Count 78 L (150-450) k/uL Sodium (137-145) mmol/L Glucose (74-99) mg/dL POC Glucose (mg/dL) 109 H 129 H (75-99) mg/dL Total Protein (6.3-8.2) g/dL Albumin (3.5-5.0) g/dL 10/08/20 10/08/20 Range/Units 04:31 06:34 RBC (3.80-5.40) m/uL Hgb (11.4-16.0) gm/dL Hct (34.0-46.0) % Plt Count (150-450) k/uL Sodium 133 L (137-145) mmol/L Glucose 113 H (74-99) mg/dL POC Glucose (mg/dL) 115 H (75-99) mg/dL Total Protein 4.9 L (6.3-8.2) g/dL Albumin 2.8 L (3.5-5.0) g/dL - Imaging and Cardiology Chest x-ray: image reviewed Assessment and Plan Assessment: 1. Severe aortic insufficiency, trace to mild mitral regurgitation, status post bioprosthetic aortic valve replacement 2. Cardiomyopathy with EF around 40% on MIKI 3. Hypertension 4. Previous tobacco dependence with preoperative FEV1 91% of predicted 5. Left internal carotid artery stenosis 50-79% 6. Occasional marijuana use 7. DVT in the right leg in 2017 after surgery 8. Postoperative acute blood loss anemia, thrombocytopenia, expected, dil utional Plan: 1. Continue low-dose aspirin, statin, Plavix, beta el therapy. Will increase beta el as tolerated 2. Encourage incentive spirometry 10 times every hour while awake. Bronchodilators per pulmonology. Encourage continued smoking cessation 3. Increase activity, ambulate as tolerated. PT/OT/cardiac rehab consulted 4. Will monitor daily labs and x-rays. Electrolyte replacement per protocol. No blood transfusion. 5. GI/DVT prophylaxis, hold subcu heparin for platelet count less than 100,000 6. Pain control with current medication regimen 7. Insulin management per Dr. Ortiz. Patient is not diabetic, preoperative hemoglobin A1c 5.6% 8. Discontinue cordis 9. Strict accurate intake and output 10. Monitor daily weights on standup scale, not bed scale 11. Will place transfer orders for cardiac stepdown unit. May transfer when bed available 12. Discharge planning in progress, anticipate discharge to home with home care in 24-48 hours 13. More recommendations to follow based on patient's progress The patient was seen and examined and I agree with the assessment and plan documented by the nurse practitioner Time with Patient: Greater than 30
--- NOTE | 2020-10-08 08:16 | XR ---
EXAMINATION TYPE: XR chest 1V portable DATE OF EXAM: 10/08/2020 COMPARISON: Prior chest x-ray 10/07/2020 HISTORY: Status post cardiac surgery, chest tube removal TECHNIQUE: Single frontal view of the chest is obtained. FINDINGS: There is been interval removal of the right-sided chest tube. Small apical pneumothorax pr esent on the right. Right jugular central venous sheath remains in place. No sizable effusion. Postop changes are again noted. Heart is unchanged. Median sternal drain has been removed. There are overly ing artifacts. IMPRESSION: Satisfactory postoperative chest x-ray, no significant interval change post chest tubes removal
[2020-10-08] MEDS ORDERED: FUROSEMIDE 10 MG/ML 4 ML VIAL IV STA (08:37)
[2020-10-08] MEDS: IPRATROPIUM-ALBUTEROL 3 ML NEB INHALATION SCH ×4 (09:14→20:12)
--- NOTE | 2020-10-08 11:42 | P.PN ---
Subjective Progress Note Date: 10/08/20 Principal diagnosis: Aortic valve stenosis, status post aVR This is a 60-year-old female with known history of severe aortic regurgitation, recently diagnosed by transesophageal echocardiogram and cardiac catheterization. Patient underwent today an elective aortic valve replacement, and she was admitted to the ICU on mechanical ventilation. I was asked to see her on consultation. Presently the patient is on assist control mode of mechanical ventilation rate of 12 tidal volume is 400 FiO2 is 50% and PEEP of 5. ABG showed a pO2 of more than 400 pCO2 of 43 pH of 7.38. Hence the patient was changed to FiO2 of 50%. Patient is now on propofol drip at 50 mcg/kg/m, she is also on clevidipine at 6 mg/h, IV fluid at 50 mL per hour. Patient is sedated, and hemodynamically stable, in no distress. Postoperative chest x-ray showed satisfactory postoperative findings, basically unremarkable Patient was reevaluated today on 10/06/20, patient was successfully extubated yesterday at 18:11. Patient is doing well today, sitting in her recliner, in no distress, has some vague postsurgical incisional pain, she is not requiring any pressors or any inotropes. However she is on clevidipine for blood pressure control. Continues to have multiple lines including a right IJ [place]/cor this, continues to have mediastinal and right pleural chest tube and the right radial arterial line. These are being addressed by thoracic surgery on the case. Chest x-ray is basically unremarkable. Labs are relatively normal today. Patient was reevaluated today on 10/07/20, patient remains in the ICU, she is sitting in her recliner, does not seem to be in any form of respiratory distres s. Patient is off clevidipine, she is hemodynamically stable, not requiring any inotropes or any pressors. She ambulated in the hallway yesterday without difficulty. Doing fairly well with incentive spirometry. Chest x-ray is reassuring, mostly postoperative changes, no acute process noted. CBC is relatively normal left lites are normal renal profile is normal. On 10/08/2020 patient seen in follow-up in the intensive care unit, today's postoperative day #3, status post aortic valve replacement with bioprosthetic bovine valve and atrial clip. Doing very well, she is on room air, she's been tolerating ambulation, no IV fluids, chest tubes have been discontinued, she is in sinus mechanism. Denies any shortness of breath or pain, lung sounds are clear, diminished at the bases, today's chest x-ray reviewed showing small apical pneumothorax on the right, no sizable effusion, stable oxygenation, has some generalized swelling, she is going to receive [address] of [address]ix per CT surgery, otherwise has been stable, achieving 1750 on the incentive spirometry today. Objective - Vital Signs Vital signs: Vital Signs Temp 98.5 F 10/08/20 08:00 Pulse 89 10/08/20 09:37 Resp 5 L 10/08/20 08:00 BP 118/55 10/08/20 08:00 Pulse Ox 94 L 10/08/20 08:00 Intake & Output 10/07/20 10/08/20 10/08/20 18:59 06:59 18:59 Intake Total 280 350 50 Output Total 1360 200 0 Balance -1080 150 50 Weight 99.1 kg Intake: IV 280 350 50 Lactated Ringers 1,000 ml 280 350 50 @ 20 mls/hr IV .Q24H [facility] Rx#:[id number] Output: Urine 1360 200 0 Other: Voiding Method Indwelling Catheter Toilet # Voids 1 ABP, PAP, CO, CI - Last Documented Arterial Blood Pressure 128/51 Pulmonary Artery Pressure 24/5 Cardiac Output 6.3 Cardiac Index 3 - Exam GENERAL EXAM: Alert, very pleasant, 60-year-old white female on room air comfortable in no apparent distress. HEAD: Normocephalic/atraumatic. EYES: Normal reaction of pupils, equal size. Conjunctiva pink, sclera white. NOSE: Clear with pink turbinates. THROAT: No erythema or exudates. NECK: No masses, no JVD, no thyroid enlargement, no adenopathy. CHEST: No chest wall deformity. Symmetrical expansion. Midsternal incision clean dry and intact, chest tube sites clean dry and intact LUNGS: Equal air entry with no crackles, wheeze, rhonchi or dullness. CVS: Regular rate and rhythm, normal S1 and S2, no gallops, no murmurs, no rubs ABDOMEN: Soft, nontender. No hepatosplenomegaly, normal bowel sounds, no guarding or rigidity. EXTREMITIES: No clubbing, no edema, no cyanosis, 2+ pulses and upper and lower extremities. MUSCULOSKELETAL: Muscle strength and tone normal. SPINE: No scoliosis or deformity SKIN: No rashes CENTRAL NERVOUS SYSTEM: Alert and oriented -3. No focal deficits, tone is normal in all 4 extremities. PSYCHIATRIC: Alert and oriented -3. Appropriate affect. Intact judgment and insight. - Labs CBC & Chem 7: 10/08/20 04:31 10/08/20 04:31 Labs: Abnormal Lab Results - Last 24 Hours (Table) 10/07/20 10/07/20 10/07/20 Range/Units 11:58 16:43 21:16 RBC (3.80-5.40) m/uL Hgb (11.4-16.0) gm/dL Hct (34.0-46.0) % Plt Count (150-450) k/uL Sodium (137-145) mmol/L Glucose (74-99) mg/dL POC Glucose (mg/dL) 127 H 120 H 109 H (75-99) mg/dL Total Protein (6.3-8.2) g/dL Albumin (3.5-5.0) g/dL 10/08/20 10/08/20 10/08/20 Range/Units 01:51 04:31 04:31 RBC 2.94 L (3.80-5.40) m/uL Hgb 9.3 L (11.4-16.0) gm/dL Hct 28.0 L (34.0-46.0) % Plt Count 78 L (150-450) k/uL Sodium 133 L (137-145) mmol/L Glucose 113 H (74-99) mg/dL POC Glucose (mg/dL) 129 H (75-99) mg/dL Total Protein 4.9 L (6.3-8.2) g/dL Albumin 2.8 L (3.5-5.0) g/dL 10/08/20 Range/Units 06:34 RBC (3.80-5.40) m/uL Hgb (11.4-16.0) gm/dL Hct (34.0-46.0) % Plt Count (150-450) k/uL Sodium (137-145) mmol/L Glucose (74-99) mg/dL POC Glucose (mg/dL) 115 H (75-99) mg/dL Total Protein (6.3-8.2) g/dL Albumin (3.5-5.0) g/dL Assessment and Plan Plan: Postoperative day #3 .aortic valve replacement with a #23 mm Polanco Inspiris bioprosthetic aortic valve, clip ligation of the left atrial appendage with a 35 mm AtriClip, intraoperative transesophageal echocardiogram History of severe aortic regurgitation. History of intermediate disease involving right coronary artery. Mildly impaired left ventricular systolic function with ejection fraction of 45% Plan: Continue encouraging deep breathing coughing, today's chest x-ray has been reviewed showing small right apical pneumothorax, no sizable effusion, oxygenation is stable, mild generalized swelling, [address] per CT surgery, no acute events overnight, transfer to [facility]. today a sibling home tomorrow I performed a history & physical examination of the patient and discussed their management with my nurse practitioner, Yeni Sprague. I reviewed the nurse practitioner's note and agree with the documented findings and plan of care. Lung sounds are positive for diminished breath sounds. The findings and the impression was discussed with the patient. I attest to the documentation by the nurse practitioner. Time with Patient: Less than 30
--- NOTE | 2020-10-08 11:47 | P.PN ---
Subjective Progress Note Date: 10/08/20 HISTORY OF PRESENT ILLNESS: Patient is status post prosthetic aortic valve replacement. Postoperative day #3. Patient denies chest pain or pressure. Denies shortness of breath. She has been up ambulate in the hallway. Vital signs are stable. She is hoping to be discharged home tomorrow. PHYSICAL EXAM: VITAL SIGNS: Reviewed. GENERAL: Well-developed in no acute distress. NECK: Supple. No JVD or thyromegaly LUNGS: Respirations even and unlabored. Lungs essentially clear to auscultation bilaterally. HEART: Regular rate and rhythm. S1 and S2 heard. EXTREMITIES: Normal range of motion. No clubbing or cyanosis. Peripheral pulses intact. No lower extremity edema ASSESSMENT: Severe aortic insufficiency, status post prosthetic aortic valve replacement Hypertension Left internal carotid artery stenosis 50-79% Hypertension Cardiomyopathy with EF around 40% PLAN: Continue current cardiac medications Continue to increase activity as tolerated Possible discharge home tomorrow Nurse practitioner note has been reviewed by physician. Signing provider agrees with the documented findings, assessment, and plan of care. Objective - Vital Signs Vital signs: Vital Signs Temp 98.5 F 10/08/20 08:00 Pulse 89 10/08/20 09:37 Resp 5 L 10/08/20 08:00 BP 118/55 10/08/20 08:00 Pulse Ox 94 L 10/08/20 08:00 Intake & Output 10/07/20 10/08/20 10/08/20 18:59 06:59 18:59 Intake Total 280 350 50 Output Total 1360 200 0 Balance -1080 150 50 Weight 99.1 kg Intake: IV 280 350 50 Lactated Ringers 1,000 ml 280 350 50 @ 20 mls/hr IV .Q24H [facility] Rx#:[id number] Output: Urine 1360 200 0 Other: Voiding Method Indwelling Catheter Toilet # Voids 1 ABP, PAP, CO, CI - Last Documented Arterial Blood Pressure 128/51 Pulmonary Artery Pressure 24/5 Cardiac Output 6.3 Cardiac Index 3 - Labs CBC & Chem 7: 10/08/20 04:31 10/08/20 04:31 Labs: Abnormal Lab Results - Last 24 Hours (Table) 10/07/20 10/07/20 10/07/20 Range/Units 11:58 16:43 21:16 RBC (3.80-5.40) m/uL Hgb (11.4-16.0) gm/dL Hct (34.0-46.0) % Plt Count (150-450) k/uL Sodium (137-145) mmol/L Glucose (74-99) mg/dL POC Glucose (mg/dL) 127 H 120 H 109 H (75-99) mg/dL Total Protein (6.3-8.2) g/dL Albumin (3.5-5.0) g/dL 10/08/20 10/08/20 10/08/20 Range/Units 01:51 04:31 04:31 RBC 2.94 L (3.80-5.40) m/uL Hgb 9.3 L (11.4-16.0) gm/dL Hct 28.0 L (34.0-46.0) % Plt Count 78 L (150-450) k/uL Sodium 133 L (137-145) mmol/L Glucose 113 H (74-99) mg/dL POC Glucose (mg/dL) 129 H (75-99) mg/dL Total Protein 4.9 L (6.3-8.2) g/dL Albumin 2.8 L (3.5-5.0) g/dL 10/08/20 Range/Units 06:34 RBC (3.80-5.40) m/uL Hgb (11.4-16.0) gm/dL Hct (34.0-46.0) % Plt Count (150-450) k/uL Sodium (137-145) mmol/L Glucose (74-99) mg/dL POC Glucose (mg/dL) 115 H (75-99) mg/dL Total Protein (6.3-8.2) g/dL Albumin (3.5-5.0) g/dL
[2020-10-08 12:04] LABS: Glucose,Whole Blood 116 mg/dL (75-99)
--- NOTE | 2020-10-08 14:55 | P.PN ---
Subjective Progress Note Date: 10/08/20 HISTORY OF PRESENT ILLNESS 60-year-old female was transferred recently from [place] to [place] to take ca re of her mom she is new to our office was seen and evaluated for recurrent episode of shortness of breath and mild chest pain along with anemia found to have very loud murmur. Patient ended up seeing cardiology transesophageal echocardiogram along with heart cath were done and patient was diagnosed with severe aortic regurgitation. Patient was referred to cardiothoracic service and was recommended to go for elective aortic valve placement. Surgery was done today successfully with no major complication patient was on the ventilator for sure. If time was taking off still have chest tube still have [place]-Verónica catheter along with another central line. Hemodynamically very stable and patient is not in any pain. 10/06: Patient is doing very well off the vent very stable hemodynamically she is not in any pain, still using DuoNeb for reactive airway, blood sugar was mildly elevated and being cover with sliding scale. Patient is on heparin subcutaneous currently no longer term anticoagulation decided this point. 10/07: Patient is doing very well her blood sugar is much better pain is well tolerated this point patient still have 2 chest tube going into one drain is able to walk in able to stay in a chair no A. fib today patient is stable on her current medication. 10/08: Patient remains in the intensive care unit. She is sitting up in chair in no distress. Chest tubes have been discontinued, cordis to be removed today. CM in sinus mechanism. Denies any shortness of breath, no chest pain. Chest x-ray revealed small apical pneumothorax on the right. She is reaching 1750 on the i ncentive spirometry. CBG will be changed to achs. Plan is for discharge tomorrow. REVIEW OF SYSTEMS CONSTITUTIONAL: Well-developed no acute respiratory distress. No fever. EYES: No icterus sclerae, no conjunctivitis. EARS, NOSE, MOUTH, THROAT, and FACE: No sore throat, lymphadenopathy, carotid bruits or deformity. RESPIRATORY: NO shortness of breath no chest pain. CARDIOVASCULAR: Positive PVCs with no angina. GASTROINTESTINAL: No Abd pain, Nausea or vomiting, no Diarrhea or constipation, No GI Bleed, no distention or masses. GENITOURINARY: Negative for Hematuria or UTI, no kidney stones. INTEGUMENT/BREAST: Negative for any muscular injury with mild osteoarthritis.. HEMATOLOGIC/LYMPHATIC: Negative for bleed or purpura. MUSCULOSKELTAL: Negative for Myalgia or arthralgia. NEURLOGICAL: No LOC, Sz or syncope, blurred vision dizziness or abnormality.. BEHAVIORAL/PSYCH: Negative. ENDOCRINE: Negative. PHYSICAL EXAMINATION General Appearance: Alert, cooperative, no distress, appears stated age. Neck HEENT: Supple, no lymphadenopathy, no thyroid enlargement, no carotid b ruits. Cordis catheter on the right side Lungs: Decreased breath sounds bilaterally especially in the left side and fine rhonchi no crackles or wheezes. Chest Wall: Slight pain and discomfort in the chest wall area from her surgical site with no other deformity still have chest tube. Heart: Regular rate and rhythm, S1, S2 normal, no murmur, rub or gallop. Back: Symmetric, no curvature, ROM normal, no CVA tenderness. Abdomen: Soft, non-tender, bowel sounds active all four quadrants, no masses, no organomegaly. Extremities: Extremities normal, atraumatic, no cyanosis or edema. Pulses: 2+ and symmetric. Skin: Skin color, texture, tugor normal, no rashes or lesions. Neurologic: Alert oriented x3 cranial nerves II through XII intact, no motor deficit, no abnormal balance or gait. ASSESSMENT AND PLAN 1 status post aortic valve placement: Secondary to severe aortic regurgitation w ith mild impair left ventricular function, patient had bioprosthetic aortic valve with clip ligation of the left Atralin appendage and stable hemodynamically no A. fib on many mom vasopressor. 2 mild impaired left ventricular function: Most likely from the effect of the severe aortic regurgitation, continue medical management post surgery patient was still on beta el along with Renzo and possibly diuretics. 3 chronic anemia: Hemoglobin stable currently patient was on iron supplement as an outpatient which will be continue. 4 hyperglycemia: Continue Accu-Chek with sliding scales coverage to to keep her blood sugar between 120 and 150. 5 chronic depression: Has been on Wellbutrin which will be resumed. 6 hyperlipidemia: On atorvastatin 40 mg a day resume medication. 7 mild arrhythmia mostly PVCs was doing very well on beta el. 8 mild reactive airway: Continue DuoNeb for now continue supportive oxygen. 9 history of coagulopathy: Patient is currently on heparin patient will have early mobilization along with knee-high NATE hose continue heparin subcutaneous whether to go on oral anticoagulation or not this to be determined. Developed to have mild thrombocytopenia was taking off heparin drip and heparin subcutaneous. DISCHARGE PLAN Home tomorrow. Impression and plan of care have been directed as dictated by the signing physician. Ann-Marie Bro nurse practitioner acting as scribe for signing physician. Objective - Vital Signs Vital signs: Vital Signs Temp 98.5 F 10/08/20 08:00 Pulse 83 10/08/20 08:00 Resp 5 L 10/08/20 08:00 BP 118/55 10/08/20 08:00 Pulse Ox 94 L 10/08/20 08:00 Intake & Output 10/07/20 10/08/20 10/08/20 18:59 06:59 18:59 Intake Total 280 350 50 Output Total 1360 200 0 Balance -1080 150 50 Weight 99.1 kg Intake: IV 280 350 50 Lactated Ringers 1,000 ml 280 350 50 @ 20 mls/hr IV .Q24H [facility] Rx#:[id number] Output: Urine 1360 200 0 Other: Voiding Method Indwelling Catheter Toilet # Voids 1 ABP, PAP, CO, CI - Last Documented Arterial Blood Pressure 128/51 Pulmonary Artery Pressure 24/5 Cardiac Output 6.3 Cardiac Index 3 - Labs CBC & Chem 7: 10/08/20 04:31 10/08/20 04:31 Labs: Abnormal Lab Results - Last 24 Hours (Table) 10/07/20 10/07/20 10/07/20 Range/Units 08:19 11:58 16:43 RBC (3.80-5.40) m/uL Hgb (11.4-16.0) gm/dL Hct (34.0-46.0) % Plt Count (150-450) k/uL Sodium (137-145) mmol/L Glucose (74-99) mg/dL POC Glucose (mg/dL) 138 H 127 H 120 H (75-99) mg/dL Total Protein (6.3-8.2) g/dL Albumin (3.5-5.0) g/dL 10/07/20 10/08/20 10/08/20 Range/Units 21:16 01:51 04:31 RBC 2.94 L (3.80-5.40) m/uL Hgb 9.3 L (11.4-16.0) gm/dL Hct 28.0 L (34.0-46.0) % Plt Count 78 L (150-450) k/uL Sodium (137-145) mmol/L Glucose (74-99) mg/dL POC Glucose (mg/dL) 109 H 129 H (75-99) mg/dL Total Protein (6.3-8.2) g/dL Albumin (3.5-5.0) g/dL 10/08/20 10/08/20 Range/Units 04:31 06:34 RBC (3.80-5.40) m/uL Hgb (11.4-16.0) gm/dL Hct (34.0-46.0) % Plt Count (150-450) k/uL Sodium 133 L (137-145) mmol/L Glucose 113 H (74-99) mg/dL POC Glucose (mg/dL) 115 H (75-99) mg/dL Total Protein 4.9 L (6.3-8.2) g/dL Albumin 2.8 L (3.5-5.0) g/dL
[2020-10-08 16:59] LABS: Glucose,Whole Blood 114 mg/dL (75-99)
[2020-10-08 20:11] LABS: Glucose,Whole Blood 119 mg/dL (75-99)
[2020-10-08] MEDS: SENNOSIDES-DOCUSATE SODIUM 1 EACH TAB PO SCH (22:32)
[2020-10-09 02:00] LABS: Glucose,Whole Blood 117 mg/dL (75-99)
[2020-10-09] MEDS: INSULIN ASPART (NovoLOG) 100 UNIT/ML VIAL SQ SCH ×3 (05:40→12:09)
[2020-10-09] MEDS: KETOROLAC 15 MG/ML 1 ML VIAL IVP SCH ×3 (05:41→12:09)
[2020-10-09 06:19] LABS: Glucose,Whole Blood 114 mg/dL (75-99)
[2020-10-09] MEDS: MUPIROCIN 2% OINT 22 GM TUBE NASAL SCH (06:52)
[2020-10-09] MEDS: ACETAMINOPHEN TAB 325 MG TAB PO PRN ×2 (07:06→12:10)
[2020-10-09] MEDS: MAGNESIUM HYDROXIDE 2,400 MG/10 ML CUP PO PRN (07:07)
--- NOTE | 2020-10-09 07:23 | P.PN ---
Subjective Progress Note Date: 10/09/20 Principal diagnosis: Severe aortic insufficiency, trace to mild mitral regurgitation. Previous medical history of cardiomyopathy with EF around 40%, hypertension, previous tobacco dependence with preoperative FEV1 91% of predicted, left internal carotid artery stenosis 50-79%, occasional marijuana use, DVT in the right leg in 2017 after surgery POD #4 aortic valve replacement with a #23 mm Polanco Inspiris bioprosthetic aortic valve, clip ligation of the left atrial appendage with a 35 mm AtriClip, and intraoperative transesophageal echocardiogram Postoperative acute blood loss anemia, from superior, expected, dilutional The patient is currently sitting up in bed in no acute distress on the cardiac stepdown unit. She states pain is controlled on current medication regimen, denies shortness of breath. Remains in normal sinus rhythm and hemodynamically stable. Patient has been ambulating without difficulty. Had first post op shower yesterday. Anxious to return home, although will be going to stay with her parents for a while. No new concerns Objective - Vital Signs Vital signs: Vital Signs Temp 98.1 F 10/09/20 00:00 Pulse 104 H 10/09/20 04:00 Resp 19 10/09/20 04:00 BP 112/67 10/09/20 00:00 Pulse Ox 95 10/09/20 00:00 Intake & Output 10/08/20 10/09/20 10/09/20 18:59 06:59 18:59 Intake Total 50 Output Total 1800 280 Balance -1750 -280 Weight 98.9 kg Intake: IV 50 Lactated Ringers 1,000 ml 50 @ 20 mls/hr IV .Q24H [facility] Rx#:[id number] Output: Urine 1800 280 Other: Voiding Method Toilet # Voids 2 1 ABP, PAP, CO, CI - Last Documented Arterial Blood Pressure 128/51 Pulmonary Artery Pressure 24/5 Cardiac Output 6.3 Cardiac Index 3 - Constitutional General appearance: Present: cooperative, no acute distress - Respiratory Details: Lungs sounds diminished bilaterally. Respirations even, nonlabored. Currently on room air with oxygen saturation 95%. Able to achieve 1250 mL on her incentive spirometry. Strong productive cough. - Cardiovascular Details: S1, S2 present, systolic murmur present. Regular rate and rhythm, sinus rhythm on telemetry. Sternum stable. Palpable peripheral pulses bilaterally. No edema present. No calf pain or tenderness noted. Heart hugger in place with patient demonstrating appropriate use. Antiembolism stockings, SCDs present. - Gastrointestinal Gastrointestinal Comment(s): Abdomen soft, nontender, nondistended. Active bowel sounds present 4 quadrants. Tolerating diet. Positive flatus, negative bowel movement. - Genitourinary Genitourinary Comment(s): Continues to void, excellent diuresis after IV lasix yesterday - Integumentary Integumentary Comment(s): Skin is warm and dry with evidence of good perfusion. Anterior chest incision well approximated - Neurologic Neurologic: Present: CNII-XII intact - Musculoskeletal Musculoskeletal: Present: gait normal, strength equal bilaterally - Psychiatric Psychiatric: Present: A&O x's 3, appropriate affect, intact judgment & insight - Allied health notes Allied health notes reviewed: nursing - Labs CBC & Chem 7: 10/08/20 04:31 10/08/20 04:31 Labs: Abnormal Lab Results - Last 24 Hours (Table) 10/08/20 10/08/20 10/08/20 Range/Units 12:03 16:57 20:10 POC Glucose (mg/dL) 116 H 114 H 119 H (75-99) mg/dL 10/09/20 10/09/20 Range/Units 01:59 06:18 POC Glucose (mg/dL) 117 H 114 H (75-99) mg/dL - Imaging and Cardiology Chest x-ray: image reviewed Assessment and Plan Assessment: 1. Severe aortic insufficiency, trace to mild mitral regurgitation, status post bioprosthetic aortic valve replacement 2. Cardiomyopathy with EF around 40% on MIKI 3. Hypertension 4. Previous tobacco dependence with preoperative FEV1 91% of predicted 5. Left internal carotid artery stenosis 50-79% 6. Occasional marijuana use 7. DVT in the right leg in 2017 after surgery 8. Postoperative acute blood loss anemia, thrombocytopenia, expected, dilutional Plan: 1. Continue low-dose aspirin, statin, Plavix, beta el therapy. No anticoagulation 2. Encourage incentive spirometry 10 times every hour while awake. Bronchodilators per pulmonology. Encourage continued smoking cessation 3. Increase activity, ambulate as tolerated. PT/OT/cardiac rehab following 4. Will monitor daily labs and x-rays. Electrolyte replacement per protocol. No blood transfusion. 5. GI/DVT prophylaxis 6. Pain control with current medication regimen 7. Insulin management per Dr. Ortiz. Patient is not diabetic, preoperative hemoglobin A1c 5.6% 8. Strict accurate intake and output 9. Monitor daily weights on standup scale, not bed scale 10. Discharge planning in progress, anticipate discharge to home with home care today. Patient will be staying at her parents. All follow up appointments have been made 11. More recommendations to follow based on patient's progress The patient was seen and examined and I agree with the assessment and plan documented by the nurse practitioner Time with Patient: Greater than 30
[2020-10-09] MEDS: IPRATROPIUM-ALBUTEROL 3 ML NEB INHALATION SCH ×2 (07:25→11:48)
--- NOTE | 2020-10-09 08:39 | XR ---
EXAMINATION TYPE: XR chest 2V DATE OF EXAM: 10/09/2020 COMPARISON: 10/08/2020 TECHNIQUE: PA and lateral views submitted. HISTORY: Post cardiac surgery FINDINGS: Stable approximate 5-10% right apical pneumothorax. Coarsened interstitium with postoperative changes and mild cardiomegaly. Tiny bilateral effusions with basilar consolidation. IMPRESSION: 1. Postoperative changes with approximately 5-10% right apical pneumothorax. 2. Pleural-parenchymal changes may be on the basis of mild CHF correlate clinically. Underlying infil trate not excluded
[2020-10-09] MEDS: HEPARIN SODIUM,PORCINE 5,000 UNIT/ML 1 ML VIAL SQ SCH (08:52)
[2020-10-09] MEDS: ASPIRIN 81 MG PO SCH (08:52)
[2020-10-09] MEDS: buPROPion SR 100 MG TABLET.ER PO SCH (08:52)
[2020-10-09] MEDS: ATORVASTATIN 40 MG TAB PO SCH (08:52)
[2020-10-09] MEDS: METOPROLOL TARTRATE 25 MG TAB PO SCH (08:53)
[2020-10-09] MEDS: CLOPIDOGREL 75 MG TAB PO SCH (08:53)
[2020-10-09 09:27] LABS: HCT 29.3 % (34.0-46.0); HGB 9.5 gm/dL (11.4-16.0); MCH 31.2 pg (25.0-35.0); MCHC 32.3 g/dL (31.0-37.0); MCV 96.5 fL (80.0-100.0); Mean Platelet Volume 8.1; RBC 3.04 m/uL (3.80-5.40); RDW 12.5 % (11.5-15.5); WBC 8.5 k/uL (3.8-10.6)
[2020-10-09 09:29] LABS: Platelet Count 128 k/uL (150-450)
[2020-10-09 09:37] LABS: Calcium 8.7 mg/dL (8.4-10.2); Potassium 4.2 mmol/L (3.5-5.1)
[2020-10-09] MEDS: PANTOPRAZOLE 40 MG TABLET PO SCH (11:39)
[2020-10-09 11:53] VITALS: BP 137/63; PULSE 76; RESP 18; TEMP 98.7
--- NOTE | 2020-10-09 12:04 | P.PN ---
Subjective Progress Note Date: 10/09/20 HISTORY OF PRESENT ILLNESS 60-year-old female was transferred recently from [place] to [place] to take ca re of her mom she is new to our office was seen and evaluated for recurrent episode of shortness of breath and mild chest pain along with anemia found to have very loud murmur. Patient ended up seeing cardiology transesophageal echocardiogram along with heart cath were done and patient was diagnosed with severe aortic regurgitation. Patient was referred to cardiothoracic service and was recommended to go for elective aortic valve placement. Surgery was done today successfully with no major complication patient was on the ventilator for sure. If time was taking off still have chest tube still have [place]-Verónica catheter along with another central line. Hemodynamically very stable and patient is not in any pain. 10/06: Patient is doing very well off the vent very stable hemodynamically she is not in any pain, still using DuoNeb for reactive airway, blood sugar was mildly elevated and being cover with sliding scale. Patient is on heparin subcutaneous currently no longer term anticoagulation decided this point. 10/07: Patient is doing very well her blood sugar is much better pain is well tolerated this point patient still have 2 chest tube going into one drain is able to walk in able to stay in a chair no A. fib today patient is stable on her current medication. 10/08: Patient remains in the intensive care unit. She is sitting up in chair in no distress. Chest tubes have been discontinued, cordis to be removed today. CM in sinus mechanism. Denies any shortness of breath, no chest pain. Chest x-ray revealed small apical pneumothorax on the right. She is reaching 1750 on the i ncentive spirometry. CBG will be changed to achs. Plan is for discharge tomorrow. 10/09: Patient is seen on the cardiac stepdown unit. She states that she is feeling well and is anxious to go home today. Plans are in place for discharge. She has been afebrile, heart rate 96, blood pressure 130/63, pulse ox 96% on room air. Blood sugars running between 114 and 119. Patient is cleared from medicine for discharge and will have follow-up with Dr. Ortiz in the office. REVIEW OF SYSTEMS CONSTITUTIONAL: Well-developed no acute respiratory distress. No fever. No chills EYES: No icterus sclerae, no conjunctivitis. EARS, NOSE, MOUTH, THROAT, and FACE: No sore throat, lymphadenopathy, carotid b ruits or deformity. RESPIRATORY: NO shortness of breath no chest pain. CARDIOVASCULAR: Positive PVCs with no angina. GASTROINTESTINAL: No Abd pain, Nausea or vomiting, no Diarrhea or constipation, No GI Bleed, no distention or masses. GENITOURINARY: Negative for Hematuria or UTI, no kidney stones. INTEGUMENT/BREAST: Negative for any muscular injury with mild osteoarthritis.. HEMATOLOGIC/LYMPHATIC: Negative for bleed or purpura. MUSCULOSKELTAL: Negative for Myalgia or arthralgia. NEURLOGICAL: No LOC, Sz or syncope, blurred vision dizziness or abnormality.. BEHAVIORAL/PSYCH: Negative. ENDOCRINE: Negative. PHYSICAL EXAMINATION General Appearance: Alert, cooperative, no distress, appears stated age. Neck HEENT: Supple, no lymphadenopathy, no thyroid enlargement, no carotid bruits. Lungs: Decreased breath sounds bilaterally especially in the left side and fine rhonchi no crackles or wheezes. Chest Wall: Slight pain and discomfort in the chest wall area from her surgical site with no other deformity Heart: Regular rate and rhythm, S1, S2 normal, no murmur, rub or gallop. Back: Symmetric, no curvature, ROM normal, no CVA tenderness. Abdomen: Soft, non-tender, bowel sounds active all four quadrants, no masses, no organomegaly. Extremities: Extremities normal, atraumatic, no cyanosis or edema. Pulses: 2+ and symmetric. Skin: Skin color, texture, tugor normal, no rashes or lesions. Neurologic: Alert oriented x3 cranial nerves II through XII intact, no motor deficit, no abnormal balance or gait. ASSESSMENT AND PLAN 1 status post aortic valve placement: Secondary to severe aortic regurgitation with mild impair left ventricular function 2 mild impaired left ventricular function: Most likely from the effect of the severe aortic regurgitation, 3 chronic anemia, anemia of chronic disease 4 hyperglycemia without diabetes 5 recurrent depression 6 hyperlipidemia 7 mild arrhythmia mostly PVCs 8 mild reactive airway 9 history of coagulopathy 10 mild thrombocytopenia DISCHARGE PLAN Home Impression and plan of care have been directed as dictated by the signing physician. Ann-Marie Bro nurse practitioner acting as scribe for signing physician. Objective - Vital Signs Vital signs: Vital Signs Temp 99.3 F 10/09/20 08:01 Pulse 96 10/09/20 08:01 Resp 16 10/09/20 08:01 BP 138/63 10/09/20 08:01 Pulse Ox 96 10/09/20 08:01 Intake & Output 10/08/20 10/09/20 10/09/20 18:59 06:59 18:59 Intake Total 50 240 Output Total 1800 280 Balance -1750 -280 240 Weight 98.9 kg Intake: IV 50 Lactated Ringers 1,000 ml 50 @ 20 mls/hr IV .Q24H [facility] Rx#:[id number] Oral 240 Output: Urine 1800 280 Other: Voiding Method Toilet # Voids 2 1 ABP, PAP, CO, CI - Last Documented Arterial Blood Pressure 128/51 Pulmonary Artery Pressure 24/5 Cardiac Output 6.3 Cardiac Index 3 - Labs CBC & Chem 7: 10/09/20 08:07 10/09/20 08:07 Labs: Abnormal Lab Results - Last 24 Hours (Table) 10/08/20 10/08/20 10/08/20 Range/Units 12:03 16:57 20:10 POC Glucose (mg/dL) 116 H 114 H 119 H (75-99) mg/dL 10/09/20 10/09/20 Range/Units 01:59 06:18 POC Glucose (mg/dL) 117 H 114 H (75-99) mg/dL
[2020-10-09 12:07] LABS: Glucose,Whole Blood 117 mg/dL (75-99)
--- NOTE | 2020-10-09 12:08 | P.PN ---
Subjective Progress Note Date: 10/09/20 HISTORY OF PRESENT ILLNESS: Patient is status post prosthetic aortic valve replacement. Postoperative day #4. Patient denies chest pain or pressure. Denies shortness of breath. She has been up ambulating in the hallways. Vital signs are stable. She is anxious to be discharged home today. PHYSICAL EXAM: VITAL SIGNS: Reviewed. GENERAL: Well-developed in no acute distress. NECK: Supple. No JVD or thyromegaly LUNGS: Respirations even and unlabored. Lungs essentially clear to auscultation bilaterally. HEART: Regular rate and rhythm. S1 and S2 heard. EXTREMITIES: Normal range of motion. No clubbing or cyanosis. Peripheral pulses intact. No lower extremity edema ASSESSMENT: Severe aortic insufficiency, status post prosthetic aortic valve replacement Hypertension Left internal carotid artery stenosis 50-79% Hypertension Cardiomyopathy with EF around 40% PLAN: Continue current cardiac medications Continue to increase activity as tolerated Agreeable to discharge home today Nurse practitioner note has been reviewed by physician. Signing provider agrees with the documented findings, assessment, and plan of care. Objective - Vital Signs Vital signs: Vital Signs Temp 98.7 F 10/09/20 11:51 Pulse 76 10/09/20 11:51 Resp 18 10/09/20 11:51 BP 137/63 10/09/20 11:51 Pulse Ox 95 10/09/20 11:51 Intake & Output 10/08/20 10/09/20 10/09/20 18:59 06:59 18:59 Intake Total 50 240 Output Total 1800 280 Balance -1750 -280 240 Weight 98.9 kg Intake: IV 50 Lactated Ringers 1,000 ml 50 @ 20 mls/hr IV .Q24H [facility] Rx#:[id number] Oral 240 Output: Urine 1800 280 Other: Voiding Method Toilet # Voids 2 1 # Bowel Movements 1 ABP, PAP, CO, CI - Last Documented Arterial Blood Pressure 128/51 Pulmonary Artery Pressure 24/5 Cardiac Output 6.3 Cardiac Index 3 - Labs CBC & Chem 7: 10/09/20 08:07 10/09/20 08:07 Labs: Abnormal Lab Results - Last 24 Hours (Table) 10/08/20 10/08/20 10/09/20 Range/Units 16:57 20:10 01:59 RBC (3.80-5.40) m/uL Hgb (11.4-16.0) gm/dL Hct (34.0-46.0) % Plt Count (150-450) k/uL Carbon Dioxide (22-30) mmol/L Glucose (74-99) mg/dL POC Glucose (mg/dL) 114 H 119 H 117 H (75-99) mg/dL 10/09/20 10/09/20 10/09/20 Range/Units 06:18 08:07 08:07 RBC 3.04 L (3.80-5.40) m/uL Hgb 9.5 L (11.4-16.0) gm/dL Hct 29.3 L (34.0-46.0) % Plt Count 128 L D (150-450) k/uL Carbon Dioxide 33 H (22-30) mmol/L Glucose 143 H (74-99) mg/dL POC Glucose (mg/dL) 114 H (75-99) mg/dL
--- NOTE | 2020-10-09 15:19 | PN ---
PROGRESS NOTE PULMONARY/CRITICAL CARE PROGRESS NOTE: DATE OF SERVICE: 10/09/2020 This is a 60-year-old female who is postoperative day #4, status post aortic valve replacement with a #23 mm Polanco Inspiris bioprosthetic aortic valve, clip ligation of the left atrial appendage with a 35 mm AtriClip. The patient also had an intraoperative transesophageal echocardiogram, has a history of severe aortic stenosis, and has some noncritical disease involving the right coronary artery. Currently the patient is doing well. She is on room air. She may be discharged home today. She has no major complaints today. She is feeling generally well. PHYSICAL EXAMINATION: VITAL SIGNS: Current vital signs are reviewed. Temperature is 98.7, heart rate 76, respiratory rate 18, blood pressure 137/63, mean 87, room-air saturation 95%. GENERAL APPEARANCE: She appears in no acute distress. No supplemental oxygen. HEENT: Examination is grossly unremarkable. NECK: Supple. Full range of motion. No adenopathy or thyromegaly. Neck veins are flat. CARDIOVASCULAR: Examination reveals regular rhythm and rate. Heart rate 76 beats per minute. S1, S2 normal. No S3, S4 or murmur. LUNGS: Lungs reveal clear breath sounds. No wheezes, rhonchi or crackles. ABDOMEN: Soft. Bowel sounds are heard. EXTREMITIES: Intact. No cyanosis, clubbing or edema. SKIN: Without rash. NEUROLOGIC: Neurologic examination is nonfocal. LABS/IMAGING: Reviewed. White count 8.5, hemoglobin 9.5, hematocrit 29.3, platelet count 128,000. Sodium, potassium and chloride normal. CO2 33. Anion gap is 3. BUN and creatinine were 17 and 0.88. Microbiology is negative. A chest x-ray on October 09 shows postoperative changes with a small 5% to 10% right apical pneumothorax. There are some mild pleural parenchymal changes which may be on the basis of CHF. Medications are reviewed. ASSESSMENT: 1. Postoperative day #4, status post aortic valve replacement as well as clip ligation of the left atrial appendage. 2. Intraoperative transesophageal echocardiogram. 3. Severe aortic regurgitation. 4. 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 5. Mildly impaired left ventricular systolic function with an ejection fraction of 45%. Currently, the patient is doing well. Chest x-ray is stable. There may be a small right apical pneumothorax. Respiratory status is stable. The patient has been weaned off from oxygen. She will follow up in the office and have a chest x-ray. Additional recommendations and suggestions are forthcoming. Prognosis is guarded. MMODL / IJN: [id number] / [id number]
--- NOTE | 2020-10-10 13:07 | P.DS ---
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 Severe aortic insufficiency, trace to mild mitral regurgitation 2. History of cardiomyopathy with EF around 45% 3. Hypertension 4. Previous tobacco dependence with preoperative FEV1 91% of predicted 5. Left internal carotid artery stenosis 50-79% 6. Occasional marijuana use 7. DVT in the right leg in 2017 after surgery 8. Postoperative acute blood loss anemia, thrombocytopenia, expected PRINCIPAL PROCEDURE: 1. Aortic valve replacement with a #23 Polanco Inspirus bioprosthetic aortic valve 2. Clip ligation of the left atrial appendage with a 35 mm AtriClip 3. Intraoperative transesophageal echocardiogram HISTORY OF PRESENT ILLNESS: This is a 60-year-old active female patient who follows on an outpatient basis with Dr. Ortiz. She had recently moved from [place] to [place] to take care of her [id number] and she had reported to Dr. Ortiz's office with complaints of recurrent episodes of shortness of breath and mild chest pain. She was found to have a loud murmur and was referred to [facility], and was recommended to have a heart catheterization as well as transesophageal echocardiogram. Heart catheterization revealed calcified right and left coronary systems with intermediate disease to the mid right coronary artery but no significant obstructive disease. Transesophageal echocardiogram demonstrated mildly impaired left ventricular systolic function with ejection fraction 45%, severe aortic valve insufficiency with reversal flow in the descending aorta, and moderate mitral regurgitation. The patient was referred to Dr. Painting from cardiothoracic surgery. She was recommended to undergo bioprosthetic aortic valve replacement. The usual perioperative course was discussed in detail with the patient, all risks and benefits were explained, all questions were answered, and consent was obtained to proceed with surgery. She was scheduled at the earliest possible date after obtaining dental clearance. HOSPITAL COURSE: The patient was brought to the hospital on 10/05/2020, taken to the preoperative area, prepared in the usual fashion, and subsequently taken to the operating room where Dr. Painting performed a bioprosthetic aortic valve replacement. Upon completion of surgery the patient was transferred to the cardiovascular intensive care unit where she was recovered and monitored hemodynamically. She was extubated, all lines, tubes, and drips were discontinued when appropriate, and she was transferred to 3 S cardiac stepdown unit for further monitoring and rehabilitation. Her oxygen was titrated down, she continued to work with physical and occupational therapy, she was tolerating oral diet, her pain was controlled, and she was ready to be discharged to home on postoperative day #4. She received written and verbal instruction regarding her medications, activity restrictions, signs and symptoms requiring physician notification, and follow-up appointments. COMPLICATIONS: The patient experienced no postoperative complications. Patient Condition at Discharge: Stable Plan - Discharge Summary Discharge Rx Participant: Yes New Discharge Prescriptions: New Metoprolol Tartrate [Lopressor] 25 mg PO BID #60 tab Clopidogrel [Plavix] 75 mg PO DAILY #30 tab Pantoprazole [Protonix] 40 mg PO AC-BID #[address] Beth-Docusate Sodium [Senokot-S] 2 each PO HS PRN #30 tab PRN Reason: Constipation Acetaminophen Tab [Tylenol] 650 mg PO Q4HR PRN #120 tab PRN Reason: Fever And/ Or Pain Continue Atorvastatin [Lipitor] 40 mg PO DAILY Aspirin 81 mg PO DAILY buPROPion HCL [Wellbutrin SR] 100 mg PO DAILY #30 tab Discontinued Fexofenadine HCl [Marissa Allergy] 180 mg PO DAILY Metoprolol Succinate (ER) [Toprol XL] 25 mg PO DAILY Acetaminophen/Diphenhydramine [Tylenol PM 500-25mg] 1 tab PO HS Magnesium 200 mg PO DAILY Mupirocin 2% Oint [Bactroban 2% Oint] 1 applic NASAL BID #1 tube Discharge Medication List Aspirin 81 mg PO DAILY 10/01/20 [History] Atorvastatin [Lipitor] 40 mg PO DAILY 10/01/20 [History] Acetaminophen Tab [Tylenol] 650 mg PO Q4HR PRN #120 tab 10/09/20 [Rx] Clopidogrel [Plavix] 75 mg PO DAILY #30 tab 10/09/20 [Rx] Metoprolol Tartrate [Lopressor] 25 mg PO BID #60 tab 10/09/20 [Rx] Pantoprazole [Protonix] 40 mg PO AC-BID #30 tablet. 10/09/20 [Rx] Sennosides-Docusate Sodium [Senokot-S] 2 each PO HS PRN #30 tab 10/09/20 [Rx] buPROPion HCL [Wellbutrin SR] 100 mg PO DAILY #30 tab 10/09/20 [Rx] Follow up Appointment(s)/Referral(s): Ingrid Daily NPC [Nurse Practitioner] - 10/15/20 (Will Facetime/Messenger for appointment) Rehab Dominique MALLOY,Cardiac [NON-STAFF] - 4 Weeks (You will receive a phone call 4 weeks after surgery for cardiac rehab evaluation) Joshua Perez MD [STAFF PHYSICIAN] - 10/23/20 3:00 pm Maxx Ortiz MD [Primary Care Provider] - 10/23/20 11:00 am (To see Mitzi Brink NP) González Li DO [Doctor of Osteopathic Medicine] - 10/23/20 1:15 pm Dominik Painting MD [STAFF PHYSICIAN] - 10/29/20 2:00 pm Ambulatory/Diagnostic Orders: Complete Blood Count w/diff [LAB.AMB] Time Frame: 3 Days, Location: None Selected Comprehensive Metabolic Panel [LAB.AMB] Time Frame: 3 Days, Location: None Selected Patient Instructions/Handouts: Aortic Valve Replacement (DC), Chronic Hypertension (DC) Activity/Diet/Wound Care/Special Instructions: DISCHARGE INSTRUCTIONS: 1. No driving for 4 weeks, or until physician gives their ok. 2. The patient should sleep in their own bed, no medical bed needed. 3. Stairs are not an issue. If the bedroom is upstairs, it is advised that the patient go up at night and down in the morning for the first week. Go slowly, using handrail and take 1 step at a time. 4. NATE hose are to be worn for 30 days or until physician discontinues. 5. Heart hugger is to be worn 100% of the time until physician discontinues.(except when showering) 6. No lifting, pushing, or pulling more than 10 pounds for 12 weeks. The physician will advise of any restriction changes. 7. The patient is expected to continue the prescribed walking program. 8. Continue pain control per as needed orders. 9. Continue with incentive spirometry and splinting/heart hugger until otherwise directed by the physician. 10. Must shower daily using liquid antibacterial soap and a separate white washcloth for each individual incision. 11. Routine sternal incision care. No powders, lotions, ointments on incisions. No dressings are necessary on incisions unless they are draining. Dermabond tape is to remain on sternal incision until surgeon follow-up. 12. Please call surgeon/DIRECTOR QUALITY SYSTEMS for temp greater than 101 F or purulent drainage from incisions. 13. All prescriptions given by surgeon for 30 days. Refills need to be filled through lubrication equipment servicer/primary care physician. 13. A Red armband has been placed on the patient. It should be worn for 30 days post surgery and will be removed by the cardiac surgeons. If an ER visit is necessary, please make sure the number on the Red armband is called. 14. You have been referred to and are expected to begin Cardiac Rehab in approximately 4-6 weeks. HOME HEALTH SERVICES TO PROVIDE: RN SKILLED HOME CARE SERVICES FOR POST-OP SURGICAL PATIENTS WITH THE FOLLOWING: Coronary Artery Bypass Surgery (CABG), Mitral Valve Replacement/Repair ( MVR), Aortic Valve Replacement/Repair (AVR) RN TO CONTINUE EDUCATION FROM ``ROAD TO A HEALTH HEART PATIENT EDUCATION MANUAL (GIVEN TO PATIENT IN THE HOSPITAL) MEDICATION RECONCILIATION WITH EDUCATION NEEDED ON FIRST HOME VISIT EMPHASIZE IMPORTANCE OF WEARING BREAST SUPPORT/HEART HUGGER ENCOURAGE USE OF INCENTIVE SPIROMETER 10 X EVERY HOUR WHILE AWAKE ENCOURAGE UTILIZATION OF LOWER EXTREMITY COMPRESSION STOCKINGS/NATE HOSE and ELEVATE LEGS ABOVE LEVEL OF HEART WHILE AT REST. ENCOURAGE AMBULATION 3-5x/day INCREASING TOLERATES, WHILE AVOIDING EXTREMES IN TEMPERATURE FREQUENCY: RN TO OPEN THE PATIENT WITHIN 24 HOURS OF DISCHARGE FROM THE HOSPITAL WITH TELEHEALTH INSTALLED AT [facility], RN TO VISIT 2-3 X A WEEK FOR 4 WEEKS ESTABLISHED BY PATIENT NEEDS. LABORATORY: CBC, CMP TO BE DRAWN ON THE THIRD DAY HOME, (RAN STAT) FAX RESULTS TO [phone]. TELEHEALTH PARAMETERS: WEIGHT: NOTIFY MD OF WEIGHT GAIN OF 2 LBS IN 24 HOURS OR 5 LBS IN ONE WEEK HR: NOTIFY MD OF HR <55 BPM OR HR>100 BPM BP: NOTIFY MD IF BP <90/55 OR BP>140/100 O2 SAT: NOTIFY MD IF PO2<93% ON ROOM AIR SEND TELEHEALTH REPORT TO SQUIRREL WORKER AND CARDIOVASCULAR SURGEON THE FIRST WEEK OF CARE AND THEN BI-WEEKLY. PLEASE ADDITIONALLY COMMUNICATE ANY ABNORMALS AND NEW FINDINGS TO THE SURGEONS OFFICE. For any questions or concerns please call drop board man Ingrid @ or Jamar @ Discharge Disposition: HOME WITH HOME HEALTH SERVICES
== END 2020-10-09 12:33 | disposition home health service (06) | DRG 220 ==
LOC: 2ORMAIN 05:33 → 2SICU 12:11 → 3SCARD 10-08 17:58
PROVIDERS: ADMIT Thoracic Surgery (Cardiothoracic Vascular Surgery); ATTEND Thoracic Surgery (Cardiothoracic Vascular Surgery)
PROC: 02L70CK Occlusion of Left Atrial Appendage with Extraluminal Device, Open Approach (ICD-10-PCS; 2020-10-05)
PROC: 5A1221Z Performance of Cardiac Output, Continuous (ICD-10-PCS; 2020-10-05)
PROC: 5A09357 Assistance with Respiratory Ventilation, Less than 24 Consecutive Hours, Continuous Positive Airway Pressure (ICD-10-PCS; 2020-10-05)
PROC: 02RF08Z Replacement of Aortic Valve with Zooplastic Tissue, Open Approach (ICD-10-PCS; principal; 2020-10-05 08:00)
DX: I08.0 Rheumatic disorders of both mitral and aortic valves (principal); I42.9 Cardiomyopathy, unspecified; D68.9 Coagulation defect, unspecified; J93.9 Pneumothorax, unspecified; F33.9 Major depressive disorder, recurrent, unspecified; D62 Acute posthemorrhagic anemia; D69.6 Thrombocytopenia, unspecified; D63.8 Anemia in other chronic diseases classified elsewhere; Z68.30 Body mass index [BMI] 30.0-30.9, adult; E78.5 Hyperlipidemia, unspecified; M19.90 Unspecified osteoarthritis, unspecified site; I10 Essential (primary) hypertension; R73.9 Hyperglycemia, unspecified; I49.3 Ventricular premature depolarization; I65.22 Occlusion and stenosis of left carotid artery; E66.9 Obesity, unspecified; Z71.3 Dietary counseling and surveillance; Z79.82 Long term (current) use of aspirin; Z79.899 Other long term (current) drug therapy; Z86.718 Personal history of other venous thrombosis and embolism; Z90.49 Acquired absence of other specified parts of digestive tract; Z90.710 Acquired absence of both cervix and uterus; Z98.890 Other specified postprocedural states; Z87.891 Personal history of nicotine dependence; Z88.5 Allergy status to narcotic agent; Z88.0 Allergy status to penicillin; Z82.49 Family history of ischemic heart disease and other diseases of the circulatory system; Z83.2 Family history of diseases of the blood and blood-forming organs and certain disorders involving the immune mechanism
CPT/HCPCS: 71045; 71046; 80048; 80053; 82330; 82805; 83735; 85025; 85027; 85610; 85730; 86850; 86891; 86900; 86901; 86920; 88305; 88311; 94002; 94640; 94660

== ENCOUNTER 2021-10-06 10:58 | Emergency (ER) | payer OTHER ==
[2021-10-06 11:09] VITALS: BP 106/71; PULSE 80; RESP 18; TEMP 98.8
--- NOTE | 2021-10-06 11:45 | ED ---
General Adult HPI - General Chief complaint: Upper Respiratory Infection Stated complaint: Needs Covid Antibodies Time Seen by Provider: 10/06/21 11:16 Source: patient, RN notes reviewed Mode of arrival: ambulatory Limitations: no limitations - History of Present Illness Initial comments: 61-year-old female with a past medical history of coronary artery disease, hyperlipidemia, hypertension presents to the emergency room for antibody infusion. Patient states she started with cold symptoms one week ago and tested positive at her doctor's office 2 days ago. Patient states that she was told to come here to get an antibody infusion. Patient denies shortness of breath. Patient thinks complaint is body aches on long her lower back. Patient has no other complaints at this time including shortness of breath, chest pain, abdominal pain, nausea or vomiting, headache, or visual changes. - Related Data Home Medications Medication Instructions Recorded Confirmed Aspirin 81 mg PO DAILY 10/01/20 10/05/20 Atorvastatin [Lipitor] 40 mg PO DAILY 10/01/20 10/05/20 Previous Rx's Medication Instructions Recorded Acetaminophen Tab [Tylenol] 650 mg PO Q4HR PRN #120 tab 10/09/20 Clopidogrel [Plavix] 75 mg PO DAILY #30 tab 10/09/20 Metoprolol Tartrate [Lopressor] 25 mg PO BID #60 tab 10/09/20 Pantoprazole [Protonix] 40 mg PO AC-BID #30 tablet. 10/09/20 Sennosides-Docusate Sodium 2 each PO HS PRN #30 tab 10/09/20 [Senokot-S] buPROPion HCL [Wellbutrin SR] 100 mg PO DAILY #30 tab 10/09/20 Allergies Allergy/AdvReac Type Severity Reaction Status Date / Time Penicillins Allergy Anaphylaxis Verified 10/06/21 11:10 morphine AdvReac Itching Verified 10/06/21 11:10 Review of Systems ROS Statement: Those systems with pertinent positive or pertinent negative responses have been documented in the HPI. ROS Other: All systems not noted in ROS Statement are negative. Past Medical History Past Medical History: Coronary Artery Disease (CAD), Hyperlipidemia, Hypertension Additional Past Medical History / Comment(s): DVT right leg 2017, recent hx. heart murmur History of Any Multi-Drug Resistant Organisms: None Reported Past Surgical History: Bowel Resection, Section, Coronary Bypass/CABG, Hernia Repair, Hysterectomy, Orthopedic Surgery Additional Past Surgical History / Comment(s): arthroscopy knee, ovarian surg. Past Anesthesia/Blood Transfusion Reactions: No Reported Reaction Additional Past Anesthesia/Blood Transfusion Reaction / Comment(s): uncontrollable shakes when coming out Past Psychological History: Anxiety Smoking Status: Current every day smoker Past Alcohol Use History: None Reported Past Drug Use History: None Reported - Past Family History Father Family Medical History: Blood Disorder, Deep Vein Thrombosis (DVT) Additional Family Medical History / Comment(s): not sure what name of clotting disorder is General Exam Limitations: no limitations General appearance: alert, in no apparent distress Head exam: Present: atraumatic Eye exam: Present: normal appearance, PERRL, EOMI. Absent: scleral icterus, conjunctival injection ENT exam: Present: normal exam, mucous membranes moist Neck exam: Present: normal inspection, full ROM. Absent: tenderness Respiratory exam: Present: normal lung sounds bilaterally. Absent: respiratory distress, wheezes Cardiovascular Exam: Present: regular rate, normal rhythm, normal heart sounds GI/Abdominal exam: Present: soft, normal bowel sounds. Absent: distended, tenderness Neurological exam: Present: alert Course Vital Signs 10/06/21 11:05 Temperature 98.8 F Pulse Rate 80 Respiratory 18 Rate Blood Pressure 106/71 O2 Sat by Pulse 98 Oximetry Medical Decision Making - Medical Decision Making Vitals are stable. Patient is well-appearing. No respiratory distress. Patient will be treated with antibody infusion and strict return parameters are discussed. She will follow-up with her doctor. Disposition Clinical Impression: COVID Disposition: HOME SELF-CARE Condition: Good Instructions (If sedation given, give patient instructions): Coronavirus Disease 2019 (COVID-19) Additional Instructions: Please follow up with your doctor in 1-2 days. Return to the ER for any worsening symptoms. Is patient prescribed a controlled substance at d/c from ED?: No Referrals: Maxx Ortiz MD [Primary Care Provider] - 1-2 days Time of Disposition: 11:44
[2021-10-06] MEDS ORDERED: SODIUM CHLORIDE 0.9% 50 ML IVPB ONE (12:00)
[2021-10-06] MEDS ORDERED: BAMLANIVIMAB (EUA) 700 MG, ETESEVIMAB (EUA) 1,400 MG in SODIUM CHLORIDE 0.9% 50 ML IVPB ONE (12:15)
== END 2021-10-06 14:51 | disposition home or self-care (01) ==
LOC: EC 10:58
DX: U07.1 COVID-19 (principal); I10 Essential (primary) hypertension; I25.10 Atherosclerotic heart disease of native coronary artery without angina pectoris; E78.5 Hyperlipidemia, unspecified; F41.9 Anxiety disorder, unspecified; F17.200 Nicotine dependence, unspecified, uncomplicated; Z79.02 Long term (current) use of antithrombotics/antiplatelets; Z79.82 Long term (current) use of aspirin; Z79.899 Other long term (current) drug therapy; Z86.718 Personal history of other venous thrombosis and embolism; Z88.0 Allergy status to penicillin; Z88.5 Allergy status to narcotic agent; Z95.1 Presence of aortocoronary bypass graft
CPT/HCPCS: 99283; 96365; J3490

== ENCOUNTER 2022-01-07 12:59 | Inpatient (IN) | payer OTHER ==
[2022-01-07] MEDS ORDERED: SODIUM CHLORIDE 0.9% 500 ML 500 ML IV STA (13:01)
--- NOTE | 2022-01-07 13:11 | ED ---
General Adult HPI - General Stated complaint: seizure Time Seen by Provider: 01/07/22 13:01 Source: EMS, old records reviewed Limitations: altered mental status - History of Present Illness Initial comments: 61-year-old female presenting for evaluation of suspected seizure. Patient had become acutely altered. EMS was called. She had seizure activity which apparently lasted somewhere between 5 and 10 minutes. Patient had a brief moment in between [id number]-vd-vlpm seizures where she had regained some level of consciousness. This was witnessed by paramedics. No previous history of seizure disorder. She was given 10 mg of intramuscular Versed by paramedics during transport. She had stable hemodynamics and a normal blood sugar. Paramedics did not note any limb weakness during the interval period of increased level of consciousness. - Related Data Home Medications Medication Instructions Recorded Confirmed Aspirin 81 mg PO DAILY 10/01/20 10/05/20 Atorvastatin [Lipitor] 40 mg PO DAILY 10/01/20 10/05/20 Previous Rx's Medication Instructions Recorded Acetaminophen Tab [Tylenol] 650 mg PO Q4HR PRN #120 tab 10/09/20 Clopidogrel [Plavix] 75 mg PO DAILY #30 tab 10/09/20 Metoprolol Tartrate [Lopressor] 25 mg PO BID #60 tab 10/09/20 Pantoprazole [Protonix] 40 mg PO AC-BID #30 tablet. 10/09/20 Sennosides-Docusate Sodium 2 each PO HS PRN #30 tab 10/09/20 [Senokot-S] buPROPion HCL [Wellbutrin SR] 100 mg PO DAILY #30 tab 10/09/20 Allergies Allergy/AdvReac Type Severity Reaction Status Date / Time Penicillins Allergy Anaphylaxis Verified 10/06/21 11:10 morphine AdvReac Itching Verified 10/06/21 11:10 Review of Systems ROS Statement: Those systems with pertinent positive or pertinent negative responses have been documented in the HPI. ROS Other: All systems not noted in ROS Statement are negative. Past Medical History Past Medical History: Coronary Artery Disease (CAD), Hyperlipidemia, Hypertension Additional Past Medical History / Comment(s): DVT right leg 2017, recent hx. heart murmur History of Any Multi-Drug Resistant Organisms: None Reported Past Surgical History: Bowel Resection, Section, Coronary Bypass/CABG, Hernia Repair, Hysterectomy, Orthopedic Surgery Additional Past Surgical History / Comment(s): arthroscopy knee, ovarian surg. Past Anesthesia/Blood Transfusion Reactions: No Reported Reaction Additional Past Anesthesia/Blood Transfusion Reaction / Comment(s): uncontroll able shakes when coming out Past Psychological History: Anxiety Smoking Status: Current every day smoker Past Alcohol Use History: None Reported Past Drug Use History: None Reported - Past Family History Father Family Medical History: Blood Disorder, Deep Vein Thrombosis (DVT) Additional Family Medical History / Comment(s): not sure what name of clotting disorder is General Exam General appearance: in no apparent distress, obtunded Head exam: Present: atraumatic, normocephalic Eye exam: Present: normal appearance, PERRL, other (No gaze deviation. Pupils are equal and reactive to light bilaterally.) Neck exam: Present: normal inspection. Absent: tenderness, meningismus Respiratory exam: Present: normal lung sounds bilaterally. Absent: respiratory distress, wheezes Cardiovascular Exam: Present: regular rate, normal rhythm GI/Abdominal exam: Present: soft. Absent: distended, tenderness, guarding Extremities exam: Present: normal inspection, normal capillary refill Neurological exam: Present: other (Patient has a gag reflex and normal spontaneous breathing. She has bilateral corneal reflex. She will localized pain.). Absent: alert, oriented X3 Skin exam: Present: warm, dry, intact. Absent: cyanosis, diaphoretic Course Vital Signs 01/07/22 01/07/22 13:01 14:22 Temperature 97.9 F Pulse Rate 86 86 Respiratory 18 18 Rate Blood Pressure 105/52 120/74 O2 Sat by Pulse 99 94 L Oximetry - Reevaluation(s) Reevaluation #1: 01/07/22 13:19 Patient follows simple commands Reevaluation #2: 01/07/22 14:45 Patient reevaluated, stable vitals. She is nonverbal and unable to give history. She is alert and oriented somewhat slow to respond. She has a nonfocal neurologic exam. Moving all extremities symmetrically. No facial droop. Denies trauma. Denies illicit drugs. Denies alcohol abuse. EKG Findings - EKG Comments: EKG Findings:: EKG: Sinus rhythm nonspecific intraventricular block rate of 83, MT interval 169, QRS duration 113, QTC 417, no ST segment elevation. Medical Decision Making - Medical Decision Making 61-year-old female with altered level consciousness, suspected seizure. Patient is both medicated and postictal upon arrival. She was maintaining her airway but nonverbal. She had a normal gag reflex, normal corneal reflex. Stable vitals. Normal respirations. She withdrew to pain symmetrically. She's taken to CT which is negative for intracranial hemorrhage or mass effect. She has laboratory testing suggestive of seizure with high lactic acid. I suspect this is the cause of lactic acidosis rather than sepsis. This will be repeated after initial hydration. She will be monitored with seizure precautions. She'll be admitted to internal medicine with neurology on consult. Dr. Angel dsouza. - Lab Data Result diagrams: 01/07/22 13:14 01/07/22 13:14 Lab Results 01/07/22 01/07/22 01/07/22 Range/Units 13:14 13:14 13:14 WBC 8.0 (3.8-10.6) k/uL RBC 4.33 (3.80-5.40) m/uL Hgb 13.5 (11.4-16.0) gm/dL Hct 42.4 (34.0-46.0) % MCV 98.0 (80.0-100.0) fL MCH 31.2 (25.0-35.0) pg MCHC 31.9 (31.0-37.0) g/dL RDW 12.9 (11.5-15.5) % Plt Count 214 (150-450) k/uL MPV 8.2 Neutrophils % 69 % Lymphocytes % 26 % Monocytes % 2 % Eosinophils % 0 % Basophils % 1 % Neutrophils # 5.5 (1.3-7.7) k/uL Lymphocytes # 2.1 (1.0-4.8) k/uL Monocytes # 0.2 (0-1.0) k/uL Eosinophils # 0.0 (0-0.7) k/uL Basophils # 0.1 (0-0.2) k/uL Sodium 135 L (137-145) mmol/L Potassium 4.9 (3.5-5.1) mmol/L Chloride 105 (98-107) mmol/L Carbon Dioxide 20 L (22-30) mmol/L Anion Gap 10 mmol/L BUN 18 H (7-17) mg/dL Creatinine 0.94 (0.52-1.04) mg/dL Est GFR (CKD-EPI)AfAm 76 (>60 ml/min/1.73 sqM) Est GFR (CKD-EPI)NonAf 66 (>60 ml/min/1.73 sqM) Glucose 203 H (74-99) mg/dL Plasma Lactic Acid Jermaine (0.7-2.0) mmol/L Calcium 8.8 (8.4-10.2) mg/dL Magnesium 2.2 (1.6-2.3) mg/dL Total Bilirubin 0.9 (0.2-1.3) mg/dL AST 30 (14-36) U/L ALT 17 (4-34) U/L Alkaline Phosphatase 61 (38-126) U/L Total Protein 6.9 (6.3-8.2) g/dL Albumin 4.2 (3.5-5.0) g/dL Salicylates <1.0 mg/dL Urine Opiates Screen (NotDetected) Ur Oxycodone Screen (NotDetected) Urine Methadone Screen (NotDetected) Ur Propoxyphene Screen (NotDetected) Acetaminophen <10.0 ug/mL Ur Barbiturates Screen (NotDetected) U Tricyclic Antidepress (NotDetected) Ur Phencyclidine Scrn (NotDetected) Ur Amphetamines Screen (NotDetected) U Methamphetamines Scrn (NotDetected) U Benzodiazepines Scrn (NotDetected) Urine Cocaine Screen (NotDetected) U Marijuana (THC) Screen (NotDetected) Serum Alcohol <10 mg/dL Coronavirus (PCR) (Not Detectd) 01/07/22 01/07/22 01/07/22 Range/Units 13:14 13:14 13:14 WBC (3.8-10.6) k/uL RBC (3.80-5.40) m/uL Hgb (11.4-16.0) gm/dL Hct (34.0-46.0) % MCV (80.0-100.0) fL MCH (25.0-35.0) pg MCHC (31.0-37.0) g/dL RDW (11.5-15.5) % Plt Count (150-450) k/uL MPV Neutrophils % % Lymphocytes % % Monocytes % % Eosinophils % % Basophils % % Neutrophils # (1.3-7.7) k/uL Lymphocytes # (1.0-4.8) k/uL Monocytes # (0-1.0) k/uL Eosinophils # (0-0.7) k/uL Basophils # (0-0.2) k/uL Sodium (137-145) mmol/L Potassium (3.5-5.1) mmol/L Chloride (98-107) mmol/L Carbon Dioxide (22-30) mmol/L Anion Gap mmol/L BUN (7-17) mg/dL Creatinine (0.52-1.04) mg/dL Est GFR (CKD-EPI)AfAm (>60 ml/min/1.73 sqM) Est GFR (CKD-EPI)NonAf (>60 ml/min/1.73 sqM) Glucose (74-99) mg/dL Plasma Lactic Acid Jermaine 7.8 H* (0.7-2.0) mmol/L Calcium (8.4-10.2) mg/dL Magnesium (1.6-2.3) mg/dL Total Bilirubin (0.2-1.3) mg/dL AST (14-36) U/L ALT (4-34) U/L Alkaline Phosphatase (38-126) U/L Total Protein (6.3-8.2) g/dL Albumin (3.5-5.0) g/dL Salicylates mg/dL Urine Opiates Screen Not Detected (NotDetected) Ur Oxycodone Screen Not Detected (NotDetected) Urine Methadone Screen Not Detected (NotDetected) Ur Propoxyphene Screen Not Detected (NotDetected) Acetaminophen ug/mL Ur Barbiturates Screen Not Detected (NotDetected) U Tricyclic Antidepress Not Detected (NotDetected) Ur Phencyclidine Scrn Not Detected (NotDetected) Ur Amphetamines Screen Not Detected (NotDetected) U Methamphetamines Scrn Not Detected (NotDetected) U Benzodiazepines Scrn Not Detected (NotDetected) Urine Cocaine Screen Not Detected (NotDetected) U Marijuana (THC) Screen Detected H (NotDetected) Serum Alcohol mg/dL Coronavirus (PCR) Not Detected (Not Detectd) Critical Care Time Critical Care Time: Yes Total Critical Care Time: 35 Disposition Clinical Impression: New onset seizure Disposition: ADMITTED IP TO THIS HOSP Condition: Stable Is patient prescribed a controlled substance at d/c from ED?: No Decision to Admit Reason: Admit from EC Decision Date: 01/07/22 Decision Time: 14:47
[2022-01-07 13:36] LABS: Basophils # (A) 0.1 k/uL (0-0.2); Basophils % (A) 1 %; Eosinophils % (A) 0 %; HCT 42.4 % (34.0-46.0); HGB 13.5 gm/dL (11.4-16.0); Lymphocytes # (A) 2.1 k/uL (1.0-4.8); Lymphocytes % (A) 26 %; MCH 31.2 pg (25.0-35.0); MCHC 31.9 g/dL (31.0-37.0); Mean Platelet Volume 8.2; Monocytes # (A) 0.2 k/uL (0-1.0); Monocytes % (A) 2 %; Neutrophils # (A) 5.5 k/uL (1.3-7.7); Neutrophils % (A) 69 %; Platelet Count 214 k/uL (150-450); RBC 4.33 m/uL (3.80-5.40); RDW 12.9 % (11.5-15.5)
[2022-01-07 13:48] LABS: ALT 17 U/L (4-34); Acetaminophen <10.0 ug/mL; African American GFR (CKD) 76 (>60 ml/min/1.73 sqM); Albumin 4.2 g/dL (3.5-5.0); Alcohol <10 mg/dL; Anion Gap 10 mmol/L; Blood Urea Nitrogen 18 mg/dL (7-17); Calcium 8.8 mg/dL (8.4-10.2); Carbon Dioxide 20 mmol/L (22-30); Chloride 105 mmol/L (98-107); Glucose 203 mg/dL (74-99); Non-African American GFR(CKD) 66 (>60 ml/min/1.73 sqM); Salicylate <1.0 mg/dL; Sodium 135 mmol/L (137-145); Total Bilirubin 0.9 mg/dL (0.2-1.3); Total Protein 6.9 g/dL (6.3-8.2)
[2022-01-07 13:49] LABS: AST 30 U/L (14-36); Alkaline Phosphatase 61 U/L (38-126); Potassium 4.9 mmol/L (3.5-5.1)
[2022-01-07 13:56] LABS: Amphetamine Screen,Urine Not Detected (NotDetected); Barbiturate Screen,Urine Not Detected (NotDetected); Benzodiazepines Screen,Urine Not Detected (NotDetected); Cocaine Screen,Urine Not Detected (NotDetected); Methadone Screen, Urine Not Detected (NotDetected); Opiate Screen,Urine Not Detected (NotDetected); Oxycodone Screen, Urine Not Detected (NotDetected); Phencyclidine Screen,Urine Not Detected (NotDetected); Tricyclic Antidepressant,Urine Not Detected (NotDetected); Urn Cannabinoid Scrn Detected (NotDetected)
--- NOTE | 2022-01-07 14:08 | CT ---
EXAMINATION TYPE: CT brain wo con DATE OF EXAM: 01/07/2022 HISTORY: new onset seizure, left side weakness. CT DLP: 2194.4 mGycm. Automated Exposure Control for Dose Reduction was Utilized. TECHNIQUE: CT scan of the head is performed without contrast. COMPARISON: None. FINDINGS: Some motion artifact degradation, repeat sequences were performed. There is no acute intr acranial hemorrhage or midline shift identified. There is mild diffuse ventricular and sulcal promine nce consistent with diffuse age-related cerebral atrophy. There is mild low-attenuation in the periv entricular white matter consistent with chronic small vessel ischemic change. The globes are intact and the visualized sinuses are clear. IMPRESSION: No acute intracranial hemorrhage or midline shift. There is mild diffuse cerebral atrop hy and chronic small vessel ischemic change noted.
[2022-01-07] MEDS ORDERED: ACETAMINOPHEN TAB 325 MG TAB PO PRN (14:43)
[2022-01-07] MEDS ORDERED: levETIRAcetam IV 1,500 MG in SALINE 1 100ML.BAG IVPB STA (14:43)
[2022-01-07] MEDS ORDERED: NALOXONE 0.4 MG/ML 1 ML VIAL IV PRN (14:43)
[2022-01-07] MEDS: SODIUM CHLORIDE 0.9% 1,000 ML IV SCH (15:10)
[2022-01-07] MEDS ORDERED: LORazepam 2 MG/ML INJ IV STA (16:27)
[2022-01-07] MEDS ORDERED: LORazepam 2 MG/ML INJ IV PRN (20:43)
[2022-01-07] MEDS: levETIRAcetam 500 MG TAB PO SCH (21:27)
--- NOTE | 2022-01-07 21:39 | P.HPIM ---
History of Present Illness H&P Date: 01/07/22 HISTORY OF PRESENT ILLNESS 61-year-old female one of my office patient is known to have history of atherosclerotic heart disease, post aortic valve placement back in September 2020 was also known to have history of coagulopathy with bleeding. Patient presented to the emergency department at [facility] via EMS because of tonic clonic seizure patient apparently had become acutely altered mental status she had seizure activity lasted for 5-10 minute apparently had [id number] seizure she become with change in consciousness at the time. EMS came to the scene and professional housing consultant end up getting patient 10 mg of Versed intermuscular become more stabilized at the time end up being transferred to the emergency department at [facility]. She was seen and evaluated surprisingly no major finding on her blood panel with normal CBC chemistry shows mildly elevated blood sugar at 203 her lactic acid surprisingly initially was high at 7.8 and repeated 3 hours later become down to 1.2. No abnormal liver function test drug screen came back positive for marijuana only, COVID-[address] of the brain shows no intracranial abnormality. EKG showed sinus rhythm with intraventricular conduction delay with no major ST or T-wave abnormality. Patient continued to be with quite altered mental status still she was giving 1 g of Keppra at the time Ativan for breakthrough seizure and she'll be admitted to the hospital. REVIEW OF SYSTEMS Constitutional: No fever, no chills, no night sweats. No weight change. positive seizure activity with slight altered mental status with severe fatigue and sleepiness and tiredness. EENT: No headache. No blurred vision or double vision, no loss of vision. No loss of Hearing, no ringing in the ears, no dizziness. No nasal drainage or congestion. No epistaxis. No sore throat. Lungs: No shortness of breath, cough, no sputum production. No wheezing. Cardiovascular: No chest pain, no lower extremity edema. No palpitations. No paroxysmal nocturnal dyspnea. No orthopnea. No lightheadedness or dizziness. No syncopal episodes. Abdominal: No abdominal pain. No nausea, vomiting. No diarrhea. No constipation. No bloody or tarry stools.. No loss of appetite. Genitourinary: No dysuria, increased frequency, urgency. No urinary retention. Musculoskeletal: No myalgias. No muscle weakness, no gait dysfunction, no frequent falls. No back pain. No neck pain. Integumentary: No wounds, no lesions. No rash or pruritus. No unusual bruising. No change in hair or nails. Neurologic: tonic-clonic seizure with significant altered mental status. Psychiatric: No depression. No anxiety. No mood swings. Endocrine: No abnormal blood sugars. No weight change. No excessive sweating or thirst. No cold intolerance. SOCIAL HISTORY patient used to smoke 5-10 cigarettes a day for over 20 years she has been taping lately and smoking marijuana, no drug use. Patient lives with family still take care of her elderly at the time and acting as a caregiver. FAMILY HISTORY She has 2 children both living and well one sister with no major medical problems she had a father with eye from coagulopathy postsurgery and mother living with significant memory loss. PHYSICAL EXAMINATION Gen: This is significantly overweight in no acute respiratory distress. HEENT: Head is atraumatic, normocephalic. Pupils equal, round. Sclerae is anicteric. NECK: Supple. No JVD. No lymphadenopathy. No thyromegaly. LUNGS: Clear to auscultation. No wheezes or rhonchi. No intercostal retractions. HEART: Regular rate and rhythm. No murmur. ABDOMEN: Soft. Bowel sounds are present. No masses. No tenderness. EXTREMITIES: No pedal edema. No calf tenderness. NEUROLOGICAL: Patient is awake, alert and oriented x3. Cranial nerves 2 through 12 are grossly intact. ASSESSMENT AND PLAN 1. status seizure: No clear reason at this point, patient was loaded with Keppra will be admitted to the hospital was seen urology refer patient for an EEG and probably MRI of the brain at this point. 2 altered mental status: Secondary to seizure activity with no significant finding consistent with any metabolic problem at this point or infection. Patient will be watch carefully consult neurology. 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 4 hyperlipidemia: Was supposed to be on atorvastatin 10 mg a day continue medication. 5 elevated blood pressure: Has been on metoprolol tartrate 25 g twice a day we'll resume medication at this point. 7 chronic depression: Has been on Wellbutrin SR 100 mg daily. 8 GI prophylaxis: Remain on Pepcid. 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 10 DVT prophylaxis: Early mobilization and knee-high NATE hose. 11. COVID-19 testing was negative. 12 CODE STATUS: Full code. Patient will be admitted to the hospital for a minimum of 2 night stay. Past Medical History Past Medical History: Coronary Artery Disease (CAD), Hyperlipidemia, Hypertension Additional Past Medical History / Comment(s): DVT right leg 2017, recent hx. heart murmur History of Any Multi-Drug Resistant Organisms: None Reported Past Surgical History: Bowel Resection, Section, Coronary Bypass/CABG, Hernia Repair, Hysterectomy, Orthopedic Surgery Additional Past Surgical History / Comment(s): arthroscopy knee, ovarian surg. Past Anesthesia/Blood Transfusion Reactions: No Reported Reaction Additional Past Anesthesia/Blood Transfusion Reaction / Comment(s): uncontrollable shakes when coming out Past Psychological History: Anxiety Smoking Status: Former smoker Past Alcohol Use History: None Reported Additional Past Alcohol Use History / Comment(s): currently quitting, down to 5 cigs/day from 1ppd since age of 26, had quit once before Past Drug Use History: None Reported Additional Drug Use History / Comment(s): occasional use - Past Family History Father Family Medical History: Blood Disorder, Deep Vein Thrombosis (DVT) Additional Family Medical History / Comment(s): not sure what name of clotting disorder is Medications and Allergies Home Medications Medication Instructions Recorded Confirmed Type Aspirin 81 mg PO DAILY 10/01/20 01/07/22 History Clopidogrel [Plavix] 75 mg PO DAILY #30 tab 10/09/20 01/07/22 Rx Metoprolol Tartrate [Lopressor] 25 mg PO BID #60 tab 10/09/20 01/07/22 Rx buPROPion HCL [Wellbutrin SR] 100 mg PO DAILY #30 tab 10/09/20 01/07/22 Rx Atorvastatin [Lipitor] 10 mg PO DAILY 01/07/22 01/07/22 History Cyanocobalamin (Vitamin B-12) 3,000 mcg PO DAILY 01/07/22 01/07/22 History [Vitamin B-12] Magnesium 250 mg PO HS 01/07/22 01/07/22 History Allergies Allergy/AdvReac Type Severity Reaction Status Date / Time Penicillins Allergy Anaphylaxis Verified 01/07/22 15:40 morphine AdvReac Itching Verified 01/07/22 15:40 Physical Exam Vitals: Vital Signs Temp Pulse Resp BP Pulse Ox 01/07/22 18:24 75 20 124/75 96 01/07/22 16:57 78 18 135/74 95 01/07/22 14:22 86 18 120/74 94 L 01/07/22 13:01 97.9 F 86 18 105/52 99 Intake and Output 01/07/22 01/07/22 01/07/22 06:59 14:59 22:59 Other: Weight 220 kg 220 kg Results CBC & Chem 7: 01/07/22 13:14 01/07/22 13:14 Labs: Abnormal Lab Results - Last 24 Hours (Table) 01/07/22 01/07/22 01/07/22 Range/Units 13:14 13:14 13:14 Sodium 135 L (137-145) mmol/L Carbon Dioxide 20 L (22-30) mmol/L BUN 18 H (7-17) mg/dL Glucose 203 H (74-99) mg/dL Plasma Lactic Acid Jermaine 7.8 H* (0.7-2.0) mmol/L U Marijuana (THC) Screen Detected H (NotDetected) Thrombosis Risk Factor Assmnt - Choose All That Apply Each Factor Represents 1 point: Age 41-60 years Each Risk Factor Represents 3 Points: Family history of DVT/PE, History of DVT/PE Thrombosis Risk Factor Assessment Total Risk Factor Score: 7 Thrombosis Risk Factor Assessment Level: High Risk
[2022-01-08] MEDS: SODIUM CHLORIDE 0.9% 1,000 ML IV SCH (06:39)
[2022-01-08] MEDS ORDERED: buPROPion SR 100 MG TABLET.ER PO SCH (09:00)
[2022-01-08] MEDS: ASPIRIN 81 MG PO SCH (09:04)
[2022-01-08] MEDS: CYANOCOBALAMIN 500 MCG TAB PO SCH (09:04)
[2022-01-08] MEDS: CLOPIDOGREL 75 MG TAB PO SCH (09:05)
[2022-01-08] MEDS: ATORVASTATIN 10 MG TAB PO SCH (09:05)
[2022-01-08] MEDS: METOPROLOL TARTRATE 25 MG TAB PO SCH ×2 (09:05→21:32)
[2022-01-08] MEDS: levETIRAcetam 500 MG TAB PO SCH ×2 (09:05→21:24)
--- NOTE | 2022-01-08 12:14 | MR ---
EXAMINATION TYPE: MR brain wo/w con DATE OF EXAM: 01/08/2022 12:07 PM COMPARISON: NONE HISTORY: Facial numbness, unable to speak, possible seizure CONTRAST: Patient received 10 mL intravenous Gadavist gadolinium contrast. Multiplanar and multispin-echo imaging of the brain was performed . Pre and post contrast enhanced i mages are obtained. The ventricles, basal cisterns and sulci overlying the cerebral convexities are mildly enlarged There is evidence of mild periventricular white matter ischemic demyelination. Remote deep white matter insults are also noted. No acute edema is seen on diffusion weighted imaging. There is no evidence for midline shift or mass effect. Acute intracranial hemorrhage or extra-axial collection is not evident. No enhancing lesions are seen. The paranasal sinuses and mastoid air cells are well-aerated. IMPRESSION: Age-related atrophic and chronic small vessel ischemic change. No acute intracranial process at this time. No enhancing lesions are seen.
--- NOTE | 2022-01-08 14:57 | US ---
EXAMINATION TYPE: US carotid duplex BILAT DATE OF EXAM: 01/08/2022 COMPARISON: NONE CLINICAL HISTORY: seizure. Seizure, pt states transient facial drooping, left arm numbness EXAM MEASUREMENTS: RIGHT: Peak Systolic Velocity (PSV) cm/sec ----- Right CCA: 66.2 ----- Right ICA: 117.7 ----- Right ECA: 68.0 ICA/CCA ratio: 1.8 RIGHT: End Diastole cm/sec ----- Right CCA: 15.6 ----- Right ICA: 35.4 ----- Right ECA: 4.3 LEFT: Peak Systolic Velocity (PSV) cm/sec ----- Left CCA: 84.5 ----- Left ICA: 99.5 ----- Left ECA: 118.1 ICA/CCA ratio: 1.2 LEFT: End Diastole cm/sec ----- Left CCA: 24.1 ----- Left ICA: 33.5 ----- Left ECA: 15.6 VERTEBRALS (direction of flow): Right Vertebral: Antegrade Left Vertebral: Antegrade Rhythm: Normal Grayscale, color Doppler, spectral Doppler imaging performed the carotid arteries. Waveform analysis does not show significant stenosis of the internal carotid arteries. Some mild atheromatous plaque pr esent at the carotid bulbs. No significant stenosis seen IMPRESSION: No hemodynamic significant stenosis of the proximal internal carotid arteries by Doppler criteria, an indirect measurement of carotid stenosis Criteria for Assigning % of Stenosis / Diameter reduction (Estimation based on the indirect measurements of the internal carotid artery velocities (ICA PSV). 1. Normal (no stenosis)=ICA PSV < 125 cm/s: ratio < 2.0: ICA EDV<40 cm/s. 2. Less than 50% stenosis=ICA PSV < 125 cm/s: ratio < 2.0: ICA EDV<40 cm/s. 3. 50 to 69% stenosis=ICA PSV of 125 to 230 cm/s: ration 2.0 ? 4.0: ICA EDV 40-100 cm/s. 4. Greater than 70% stenosis to near occlusion= ICA PSV > 230 cm/s: ratio > 4.0: ICA EDV > 100 cm/s. 5. Near occlusion= ICA PSV velocities may be low or undetectable: variable ratio and ICA EDV. 6. Total occlusion=unable to detect flow.
[2022-01-08] MEDS: LORazepam 0.5 MG TAB PO SCH ×4 (15:50→23:39)
--- NOTE | 2022-01-08 16:09 | P.CNNES ---
History of Present Illness Consult date: 01/08/22 Requesting physician: González Montero Reason for Consult: New onset seizure History of Present Illness: Patient is a 61-year-old female came to the hospital by ambulance yesterday at 12:59 PM. EMS flow sheet mentions that when they arrived on the scene, patient's family stated that she found her in the chair shaking, not responding. Patient had her head turned to the right with a right-sided gaze, pupils 4 mm nonreactive. Patient acknowledged loud verbal stimuli with pain response. Patient nonverbal with some slight tremors to her upper extremities with painful movement. Patient has strong cage supervisor both upper extremities noted as she would reach and grab as she was rolled her to get a lift device and that her for extrication from the home. Patient's family has mentioned that she just received Covid vaccination, has history of cardiac and high blood pressure. No history of seizures. Last normal was 15 minutes ago. Patient's tremors stopped, but still has right-sided gaze with head turn. Patient was sensitive to movement. During transfer to the ambulance patient became uncontrollable thrashing about. Patient's gaze changed to the left side and started to seize again. Patient was given 10 mg of Versed IM left shoulder. Placed on 15 L/m oxygen via nonrebreather. Patient's vitals at the scene was blood pressure 149/83 pulse rate 95, respiration 20 saturation 99% on room air EKG shows sinus rhythm. Vital signs arrival blood pressure 105/52 pulse 86 temperature 97.9. Patient has been afebrile. Blood test shows normal CBC, sodium 135 potassium 4.9, renal functions are normal. Hepatic panel normal. Plasma lactate 7.8. Urine drug screen positive for marijuana. Blood alcohol level negative. Naik virus PCR negative. Patient's last hemoglobin A1c 5.6 on 09/28/2020 with B12 of 280. TSH was normal. CT head showed no acute interfere hemorrhage or midline shift. There is mild diffuse cerebral atrophy and chronic small vessel ischemic change noted. I personally reviewed computed tomography scan of the head and agree with the findings. EKG shows sinus rhythm, moderate intraventricular conduction delay. Nonspecific ST and T-wave abnormality. Patient at this time tells me since 2014 oh 2016, she has been having what she calls anxiety attacks, consisting of lightheadedness like she will pass out. Usually when it happens, she wakes up with these symptoms. Initially used to occur once every other week or once a month but has progressively got worse. These episodes are worse when she is under stress or exhausted. Patient states that her recently and her daughter got , therefore she was under a lot of stress. Now she has been having these episodes about once a week or twice a week. With each episode, she usually wakes up with anx iety attack, and it's "an all day gig". She gets up, and when she feels will pass out, she sits down in the chair. It does not prevent her from doing her usual activities although she usually has to sit down when she feels will pass out. Once she wakes up with these symptoms, it lasts for the whole day. One time when she was under a lot of stress, she was having these spells daily for a month. She was seen by distribution collection operator, who recommended a heart monitor, but patient never pursued it. After her daughter got in June 2021, she was doing very well, until the last couple weeks, the symptoms have come back. Patient states that yesterday she remembers waking up with a similar type of symptoms that she has been experiencing as mentioned above. She wanted to sit in the chair, felt she was drooling, left arm was tingling. The next thing she remembers is her left arm went up and then she felt she was dreaming. She does not remember coming into the hospital, states she woke up in the ER. Patient has been on Wellbutrin since August 2019. Patient denies any use of Xanax. She denies any tobacco use. She does use medical marijuana. For the last 2 months she has been Vaping as well. Denies any other tobacco use. She does not drink, although over the last couple weekends, she has been drinking couple beers. Not a heavy drinker. Patient states she has history of open heart surgery in the past. She drinks 2 cups of coffee every day, denies excessive soda pops. No previous history of seizures. Home medications include aspirin 81 mg, metoprolol 25 mg twice a day, Plavix 75 mg, Wellbutrin 100 mg daily, Lipitor 10 mg, magnesium 250 mg bedtime and B12. Review of Systems As mentioned above in detail. All other 14 points of review of systems reviewed and unremarkable. Past Medical History Past Medical History: Coronary Artery Disease (CAD), Hyperlipidemia, Hypertension Additional Past Medical History / Comment(s): DVT right leg 2017, recent hx. heart murmur History of Any Multi-Drug Resistant Organisms: None Reported Past Surgical History: Bowel Resection, Section, Coronary Bypass/CABG, Hernia Repair, Hysterectomy, Orthopedic Surgery Additional Past Surgical History / Comment(s): arthroscopy knee, ovarian surg. Past Anesthesia/Blood Transfusion Reactions: No Reported Reaction Additional Past Anesthesia/Blood Transfusion Reaction / Comment(s): uncontrollable shakes when coming out Past Psychological History: Anxiety Smoking Status: Former smoker Past Alcohol Use History: None Reported Additional Past Alcohol Use History / Comment(s): currently quitting, down to 5 cigs/day from 1ppd since age of 26, had quit once before Past Drug Use History: None Reported Additional Drug Use History / Comment(s): occasional use - Past Family History Father Family Medical History: Blood Disorder, Deep Vein Thrombosis (DVT) Additional Family Medical History / Comment(s): not sure what name of clotting disorder is Medications and Allergies Home Medications Medication Instructions Recorded Confirmed Type Aspirin 81 mg PO DAILY 10/01/20 01/07/22 History Clopidogrel [Plavix] 75 mg PO DAILY #30 tab 10/09/20 01/07/22 Rx Metoprolol Tartrate [Lopressor] 25 mg PO BID #60 tab 10/09/20 01/07/22 Rx buPROPion HCL [Wellbutrin SR] 100 mg PO DAILY #30 tab 10/09/20 01/07/22 Rx Atorvastatin [Lipitor] 10 mg PO DAILY 01/07/22 01/07/22 History Cyanocobalamin (Vitamin B-12) 3,000 mcg PO DAILY 01/07/22 01/07/22 History [Vitamin B-12] Magnesium 250 mg PO HS 01/07/22 01/07/22 History Allergies Allergy/AdvReac Type Severity Reaction Status Date / Time Penicillins Allergy Anaphylaxis Verified 01/07/22 15:40 morphine AdvReac Itching Verified 01/07/22 15:40 Physical Examination - Vital Signs Vital Signs: Vital Signs Temp Pulse Pulse Resp BP BP Pulse Ox 01/08/22 04:00 98.4 F 69 18 108/51 98 01/08/22 01:56 63 18 01/07/22 23:44 98.1 F 63 18 111/57 100 01/07/22 20:00 98.5 F 67 18 112/61 99 01/07/22 18:24 75 20 124/75 96 01/07/22 16:57 78 18 135/74 95 01/07/22 14:22 86 18 120/74 94 L 01/07/22 13:01 97.9 F 86 18 105/52 99 Intake and Output 01/07/22 01/08/22 01/08/22 22:59 06:59 14:59 Intake Total 75 120 Balance 75 120 Intake: Intake, IV Titration 75 Amount Sodium Chloride 0.9% 1, 75 000 ml @ 75 mls/hr IV . [id number] [facility] Rx#:[id number] Oral 120 Other: Voiding Method Toilet Toilet # Voids 1 1 Weight 220 kg Patient is a late middle aged female, in no acute distress. Patient is alert awake oriented to time place and person. Speech and language functions are normal. No aphasia or dysarthria. Attention, concentration and fund of knowledge is adequate. On cranial examination, pupils are round and reacting to light, visual solis are full on confrontation, with no neglect on double simultaneous stimulation. Her extraocular muscles are intact with no nystagmus. Face is symmetric, tongue protrudes to the midline. Palatal elevation and sensation normal, hearing and shoulder shrug normal, facial sensation normal. Shoulder shrug normal. On muscle strength testing, there is no pronator drift and the strength is normal in arms and legs distally and proximally. Deep tendon reflexes are symmetric, 1+ at the biceps and brachioradialis, 0 at the knees, trace ankles and plantars downgoing bilaterally. Sensory to touch is equal with no neglect. Cerebellar function showed no ataxia for [id number] testing. No dys diadochokinesia. Tone and bulk of muscles normal. Gait deferred. On general examination, there is no carotid bruit or murmur, S1-S2 audible. Abdomen is soft nontender. No organomegaly. Bowel sounds present. Chest is clear. Peripheral pulses are present. No edema. Results - Laboratory Findings CBC and BMP: 01/07/22 13:14 01/07/22 13:14 Abnormal Lab Findings: Abnormal Labs 02/08/22 02/08/22 02/08/22 13:14 13:14 13:14 Sodium 135 L Carbon Dioxide 20 L BUN 18 H Glucose 203 H Plasma Lactic Acid Jermaine 7.8 H* U Marijuana (THC) Screen Detected H Assessment and Plan Assessment: * New onset seizure, unclear etiology. Patient has been on Wellbutrin, which can lower seizure threshold, but has been on this medication since August 2019. Patient denies excessive drinking. She does use edible marijuana, and also has been vaping, which may be contributing to the seizure. * Anxiety disorder * Coronary artery disease * Hypertension * Hyperlipidemia * Marijuana use * Vapes for last 2 months Plan: * EEG was performed today. It revealed intermittent bitemporal slowing, suggestive of focal cortical neuronal dysfunction in these region. No epileptiform activity was seen. Normal EEG does not rule out seizure disorder. If your suspicion for seizures is high, suggest prolonged, sleep deprived EEG. * MRI of the brain with and without contrast was performed today, which is normal. I personally reviewed MRI and agree with the findings. * Carotid Doppler revealed no hemodynamic significant stenosis of the proximal internal carotid arteries. Antegrade flow in both vertebral arteries. * I will stop Wellbutrin, as it can lower seizure threshold. As this was her first seizure, patient wants to hold off on starting seizure medication. She will consider AED, only if she has recurrent seizure despite stopping Wellbutrin. * I would suggest patient undergo 2.5 hours outpatient EEG and follow up with neurologist Dr. Wei. We will schedule these appointments. * Patient was informed of [place] state law of no driving unless seizure free for 6 months, climbing ladders, operate dangerous machinery or unsupervised swimming. * I would also recommend placement of event monitor to rule out cardiac arrhythmia, as was recommended by her distribution collection operator Dr. Marley in the past which she did not pursue. So far her telemetry monitoring showing sinus rhythm. No arrhythmia. * Continue dual antiplatelet medications and statins. * Neurologically clear otherwise.
--- NOTE | 2022-01-08 18:03 | EEG ---
ELECTROENCEPHALOGRAM REPORT DATE OF SERVICE: 01/08/2022 PREAMBLE: This is a 61-year-old female with new-onset seizure. This study is performed to evaluate for any epileptiform activity. EEG FINDINGS: This is a 21-channel digital EEG recorded with video component, utilizing 10/20 international system with referential and bipolar montages. Background consists of well developed, well regulated, moderate voltage activity in mixed frequencies of alpha and some fast frequency beta activity. Background is posterior-dominant and is reactive to eye opening and closing. Frequent intermittent bitemporal slowing in some theta and delta range was seen. No definitive epileptiform activity was seen. Photic driving response was not seen. Drowsiness and stage II sleep were seen with appearance of bilaterally symmetric, slower theta, and sleep spindles. No definitive focal or generalized epileptiform activity was seen. EKG channel showed no obvious arrhythmia. IMPRESSION: This is an abnormal EEG due to presence of intermittent bitemporal slowing. This is suggestive of focal cortical neuronal dysfunction in the above-described region. No definitive epileptiform activity was seen. If your suspicion for seizures is high, suggest prolonged and sleep-deprived EEG. MMODL / IJN: [id number] /
[2022-01-08] MEDS ORDERED: MAGNESIUM OXIDE 400 MG TAB PO SCH (21:00)
[2022-01-09 04:15] VITALS: TEMP 98.5
[2022-01-09] MEDS: METOPROLOL TARTRATE 25 MG TAB PO SCH (08:58)
[2022-01-09] MEDS: ASPIRIN 81 MG PO SCH (08:58)
[2022-01-09] MEDS: levETIRAcetam 500 MG TAB PO SCH (08:59)
[2022-01-09] MEDS: LORazepam 0.5 MG TAB PO SCH (08:59)
[2022-01-09] MEDS: CLOPIDOGREL 75 MG TAB PO SCH (08:59)
[2022-01-09] MEDS: ATORVASTATIN 10 MG TAB PO SCH (08:59)
[2022-01-09] MEDS: CYANOCOBALAMIN 500 MCG TAB PO SCH (08:59)
--- NOTE | 2022-01-09 10:22 | P.DS ---
Providers Date of admission: 01/07/22 14:45 Expected date of discharge: 01/09/22 Attending physician: Maxx Ortiz Consults: 01/07/22 14:44 Consult Physician Routine Consulting Provider: Raymundo Gimenez Consult Reason/Comments: New onset seizure Do you want consulting provider notified?: Yes Primary care physician: [facility] Course: HISTORY OF PRESENT ILLNESS 61-year-old female one of my office patient is known to have history of atherosclerotic heart disease, post aortic valve placement back in September 2020 was also known to have history of coagulopathy with bleeding. Patient presented to the emergency department at [facility] via EMS because of tonic clonic seizure patient apparently had become acutely altered mental status she had seizure activity lasted for 5-10 minute apparently had [id number] seizure she become with change in consciousness at the time. 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 She was seen and evaluated surprisingly no major finding on her blood panel with normal CBC chemistry shows mildly elevated blood sugar at 203 her lactic acid surprisingly initially was high at 7.8 and repeated 3 hours later become down to 1.2. No abnormal liver function test drug screen came back positive for marijuana only, COVID-[address] of the brain shows no intracranial abnormality. EKG showed sinus rhythm with intraventricular conduction delay with no major ST or T-wave abnormality. Patient continued to be with quite altered mental status still she was giving 1 g of Keppra at the time Ativan for breakthrough seizure and she'll be admitted to the hospital. 01/08: Patient states I know I had a stroke yesterday and states I had every stroke symptom. Patient is noted to not have any neurological deficits at this time. Reviewed results of testing that were available. Patient has been seen by neurology and stopped Wellbutrin as it lowers seizure threshold. Recommendations are for 2 and half hour outpatient EEG and follow-up with neurologist Dr. Wei and neurology will schedule these. Carotid ultrasound showed no hemodynamically significant stenosis of the proximal internal carotid arteries. MRI of the brain revealed age-related atrophy and chronic small vessel ischemic change. No acute intracranial process. No enhancing lesions. EEG was abnormal with focal cortical neuronal dysfunction. No definitive epileptiform activity. 01/09: Reviewed above test with the patient. Patient has had no seizure activity since admission. Patient has been afebrile, heart rate 67, blood pressure 150/60, pulse ox 99% on room air. Patient will be discharged home today in stable condition. DISCHARGE DIAGNOSES 1. status seizure 2. 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 8 COVID-19 testing was negative. DISCHARGE PLAN Home Greater than 35 minutes was utilized and coordinating patient's discharge. Impression and plan of care have been directed as dictated by the signing physician. Ann-Marie Bro nurse practitioner acting as scribe for signing physician.. Patient Condition at Discharge: Stable Plan - Discharge Summary New Discharge Prescriptions: Continue Aspirin 81 mg PO DAILY Metoprolol Tartrate [Lopressor] 25 mg PO BID #60 tab Clopidogrel [Plavix] 75 mg PO DAILY #30 tab buPROPion HCL [Wellbutrin SR] 100 mg PO DAILY #30 tab Atorvastatin [Lipitor] 10 mg PO DAILY Magnesium 250 mg PO HS Cyanocobalamin (Vitamin B-12) [Vitamin B-12] 3,000 mcg PO DAILY Discharge Medication List Aspirin 81 mg PO DAILY 10/01/20 [History] Clopidogrel [Plavix] 75 mg PO DAILY #30 tab 10/09/20 [Rx] Metoprolol Tartrate [Lopressor] 25 mg PO BID #60 tab 10/09/20 [Rx] buPROPion HCL [Wellbutrin SR] 100 mg PO DAILY #30 tab 10/09/20 [Rx] Atorvastatin [Lipitor] 10 mg PO DAILY 01/07/22 [History] Cyanocobalamin (Vitamin B-12) [Vitamin B-12] 3,000 mcg PO DAILY 01/07/22 [History] Magnesium 250 mg PO HS 01/07/22 [History] Follow up Appointment(s)/Referral(s): Maxx Ortiz MD [Primary Care Provider] - 01/14/22 9:30 am (With Yadira Bolaños NP ) Cleve Wei MD [STAFF PHYSICIAN] - 1 Week Patient Instructions/Handouts: Seizure/Epilepsy Discharge Instructions & Follow-Up Discharge Disposition: HOME SELF-CARE
[2022-01-09 10:51] VITALS: RESP 16
--- NOTE | 2022-01-09 12:21 | P.PN ---
Subjective Progress Note Date: 01/08/22 HISTORY OF PRESENT ILLNESS 61-year-old female one of my office patient is known to have history of atherosclerotic heart disease, post aortic valve placement back in September 2020 was also known to have history of coagulopathy with bleeding. Patient presented to the emergency department at [facility] via EMS because of tonic clonic seizure patient apparently had become acutely altered mental status she had seizure activity lasted for 5-10 minute apparently had [id number] seizure she become with change in consciousness at the time. 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 She was seen and evaluated surprisingly no major finding on her blood panel with normal CBC chemistry shows mildly elevated blood sugar at 203 her lactic acid surprisingly initially was high at 7.8 and repeated 3 hours later become down to 1.2. No abnormal liver function test drug screen came back positive for marijuana only, COVID-[address] of the brain shows no intracranial abnormality. EKG showed sinus rhythm with intraventricular conduction delay with no major ST or T-wave abnormality. Patient continued to be with quite altered mental status still she was giving 1 g of Keppra at the time Ativan for breakthrough seizure and she'll be admitted to the hospital. 01/08: Patient states I know I had a stroke yesterday and states I had every stroke symptom. Patient is noted to not have any neurological deficits at this time. Reviewed results of testing that were available. Patient has been seen by neurology and stopped Wellbutrin as it lowers seizure threshold. Recommendations are for 2 and half hour outpatient EEG and follow-up with neurologist Dr. Wei and neurology will schedule these. Carotid ultrasound showed no hemodynamically significant stenosis of the proximal internal carotid arteries. MRI of the brain revealed age-related atrophy and chronic small vessel ischemic change. No acute intracranial process. No enhancing lesions. EEG was abnormal with focal cortical neuronal dysfunction. No definitive epileptiform activity. REVIEW OF SYSTEMS Constitutional: No fever, no chills, no night sweats. No weight change. positive seizure activity with slight altered mental status with severe fatigue and sleepiness and tiredness. EENT: No headache. No blurred vision or double vision, no loss of vision. No loss of Hearing, no ringing in the ears, no dizziness. No nasal drainage or congestion. No epistaxis. No sore throat. Lungs: No shortness of breath, cough, no sputum production. No wheezing. Cardiovascular: No chest pain, no lower extremity edema. No palpitations. No paroxysmal nocturnal dyspnea. No orthopnea. No lightheadedness or dizziness. No syncopal episodes. Abdominal: No abdominal pain. No nausea, vomiting. No diarrhea. No constipation. No bloody or tarry stools.. No loss of appetite. Genitourinary: No dysuria, increased frequency, urgency. No urinary retention. Musculoskeletal: No myalgias. No muscle weakness, no gait dysfunction, no frequent falls. No back pain. No neck pain. Integumentary: No wounds, no lesions. No rash or pruritus. No unusual bruising. No change in hair or nails. Neurologic: tonic-clonic seizure with significant altered mental status. No further seizure activity. Psychiatric: No depression. Noted anxiety. No mood swings. Endocrine: No abnormal blood sugars. No weight change. No excessive sweating or thirst. No cold intolerance. PHYSICAL EXAMINATION Gen: This is a 61-year-old female resting in bed, very anxious. HEENT: Head is atraumatic, normocephalic. Pupils equal, round. Sclerae is anicteric. NECK: Supple. No JVD. No lymphadenopathy. No thyromegaly. LUNGS: Clear to auscultation. No wheezes or rhonchi. No intercostal retractions. HEART: Regular rate and rhythm. No murmur. ABDOMEN: Soft. Bowel sounds are present. No masses. No tenderness. EXTREMITIES: No pedal edema. No calf tenderness. NEUROLOGICAL: Patient is awake, alert and oriented x3. Cranial nerves 2 through 12 are grossly intact. ASSESSMENT AND PLAN 1. status seizure: No clear reason at this point, patient was loaded with Keppra, neurology consult, EEG and MRI as above. 2 altered mental status: Secondary to seizure activity with no significant finding consistent with any metabolic problem at this point or infection. Patient will be watch carefully consult neurology. 3 history of valvular heart disease with aortic regurgitation post aortic valve placement back in September 2020 has been doing well still seeing cardiology regular basis abruptly lost echo in shows no abnormality she has an upper motor furnace feeder the next few days. 4 hyperlipidemia: Was supposed to be on atorvastatin 10 mg a day continue medication. 5 elevated blood pressure: Has been on metoprolol tartrate 25 g twice a day we'll resume medication at this point. 7 chronic depression: Has been on Wellbutrin SR 100 mg daily. 8 GI prophylaxis: Remain on Pepcid. 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 10 DVT prophylaxis: Early mobilization and knee-high ANTE hose. 11. COVID-19 testing was negative. 12 CODE STATUS: Full code. DISCHARGE PLAN Home tomorrow Impression and plan of care have been directed as dictated by the signing physician. Ann-Marie Bro nurse practitioner acting as scribe for signing physician.. Objective - Vital Signs Vital signs: Vital Signs Temp 98.4 F 01/08/22 04:00 Pulse 69 01/08/22 04:00 Resp 18 01/08/22 04:00 BP 108/51 01/08/22 04:00 Pulse Ox 98 01/08/22 04:00 Intake & Output 01/07/22 01/08/22 01/08/22 18:59 06:59 18:59 Intake Total 75 Balance 75 Weight 220 kg Intake: Intake, IV Titration 75 Amount Sodium Chloride 0.9% 1, 75 000 ml @ 75 mls/hr IV . [id number] [facility] Rx#:[id number] Other: Voiding Method Toilet # Voids 1 - Labs CBC & Chem 7: 01/07/22 13:14 01/07/22 13:14 Labs: Abnormal Lab Results - Last 24 Hours (Table) 01/07/22 01/07/22 01/07/22 Range/Units 13:14 13:14 13:14 Sodium 135 L (137-145) mmol/L Carbon Dioxide 20 L (22-30) mmol/L BUN 18 H (7-17) mg/dL Glucose 203 H (74-99) mg/dL Plasma Lactic Acid Jermaine 7.8 H* (0.7-2.0) mmol/L U Marijuana (THC) Screen Detected H (NotDetected)
[2022-01-09 12:49] VITALS: BP 132/62; PULSE 50
== END 2022-01-09 14:09 | disposition home or self-care (01) | DRG 101 ==
LOC: EC 12:59 → 3SCARD 14:45
PROVIDERS: ADMIT Internal Medicine Geriatric Medicine; ATTEND Internal Medicine Geriatric Medicine
DX: R56.9 Unspecified convulsions (principal); E87.2 Acidosis; I67.89 Other cerebrovascular disease; G31.9 Degenerative disease of nervous system, unspecified; Z20.822 Contact with and (suspected) exposure to COVID-19; I10 Essential (primary) hypertension; E78.5 Hyperlipidemia, unspecified; I25.10 Atherosclerotic heart disease of native coronary artery without angina pectoris; F41.1 Generalized anxiety disorder; F32.A Depression, unspecified; I45.4 Nonspecific intraventricular block; Z79.82 Long term (current) use of aspirin; Z79.02 Long term (current) use of antithrombotics/antiplatelets; Z79.899 Other long term (current) drug therapy; Z86.718 Personal history of other venous thrombosis and embolism; Z98.891 History of uterine scar from previous surgery; Z90.49 Acquired absence of other specified parts of digestive tract; Z95.1 Presence of aortocoronary bypass graft; Z87.19 Personal history of other diseases of the digestive system; Z87.39 Personal history of other diseases of the musculoskeletal system and connective tissue; Z87.891 Personal history of nicotine dependence; Z95.2 Presence of prosthetic heart valve; Z90.710 Acquired absence of both cervix and uterus; Z86.79 Personal history of other diseases of the circulatory system; Z86.2 Personal history of diseases of the blood and blood-forming organs and certain disorders involving the immune mechanism; Z98.890 Other specified postprocedural states; Z88.0 Allergy status to penicillin; Z88.5 Allergy status to narcotic agent; Z83.2 Family history of diseases of the blood and blood-forming organs and certain disorders involving the immune mechanism
CPT/HCPCS: 36415; 70450; 70553; 80053; 80143; 80179; 80306; 80320; 83605; 83735; 85025; 87635; 93005; 93880; 94760; 95816; 99291

== ENCOUNTER → 2022-02-15 | Outpatient (CLI) | payer OTHER ==
--- NOTE | 2022-02-15 17:16 | MR ---
EXAMINATION TYPE: MR brain wo/w con DATE OF EXAM: 02/15/2022 COMPARISON: MRI brain January 08, 2022 HISTORY: Seizure, Epilepsy protocol TECHNIQUE: Multiplanar, multisequence images of the brain and brainstem is performed without and with IV contras t, utilizing 10 mL intravenous Gadavist . FINDINGS: Diffusion weighted images demonstrate no evidence of a recent infarct or other diffusion ab normality. There is no extra-axial fluid collection or significant white matter signal abnormality. The ventricular system and cisternal spaces are normal in size and appearance. The brain volume is age appropriate. T2 coronal weighted images show hippocampal gyri to appear symmetric and felt within normal limits. Midline structures demonstrate normal morphology. The craniocervical junction appears within normal limits. Post contrast images demonstrate no abnormal enhancement. The dural venous sinuses appear pa tent. The visualized sinuses are clear and the globes are intact. IMPRESSION: Unremarkable study.
== END | disposition home or self-care (01) ==
LOC: RADMRIMAIN 13:28
PROVIDERS: ATTEND Physician Assistant
DX: R56.9 Unspecified convulsions (principal)
CPT/HCPCS: 70553; A9585